=== PATIENT | female | born 1950 | race Caucasian/White ===

== ENCOUNTER 2020-02-03 08:58 | Outpatient (CLI) | payer MEDICARE, SELFPAY ==
--- NOTE | ~2020-02-03 | US_ITS ---
EXAMINATION: US pelvic complete DATE: 02/03/2020 09:33 INDICATION: Pelvic pain and pressure TECHNIQUE: Multiple transabdominal sonographic images of the pelvis were obtained. COMPARISON: None. FINDINGS: The uterus measures 7.2 x 5.8 x 4.3 cm. A 2.4 x 2.4 cm isoechoic area in the anterior uteri ne body has the appearance of a subserosal fibroid. The endometrial complex measures 2 mm. The right ovary is not visualized however no right adnexal abnormality is seen. The left ovary measures 2.5 x 2 .3 x 1.7 cm. There is a 1.4 cm cyst of the left ovary. There is normal vascular flow in the left ovar y. There is no free fluid in the pelvis. IMPRESSION: 1. No sonographic correlate for the patient's symptoms. 2. 1.4 cm cyst of the left ovary. Ultrasound follow-up in one year is recommended for a postmenopausa l patient. Reviewed, dictated and finalized at location A. IMPRESSION: 1. No sonographic correlate for the patient's symptoms. 2. 1.4 cm cyst of the left ovary. Ultrasound follow-up in one year is recommend ed for a postmenopausal patient.
== END 2020-02-03 08:59 | disposition home or self-care (01) ==
PROVIDERS: PCP Internal Medicine; Visit Provider Internal Medicine
DX: R10.2 Pelvic and perineal pain (principal)
CPT/HCPCS: 76856

== ENCOUNTER 2020-08-16 12:55 | Outpatient (RCR) | payer MEDICARE, SELFPAY ==
--- NOTE | 2020-08-16 14:02 | PTOPEVAL ---
Thank you for referring Minna Jarquin to [facility].? The patient is scheduled to be seen for therapy? ____x/week for ___ weeks. Please review, sign, date and return this plan of care NAKITA. I agree with and certify that the following plan of care is medically necessary. Referring Physician Date Admitting Provider: Attending Provider: Hamilton Nascimento MD Referring Provider: *PT Outpatient Evaluation Start: 08/16/20 13:02 Freq: Status: Active Protocol: Document 08/16/20 13:00 [facility] (Rec: 08/16/20 14:01 [facility] [id number]) Therapy Assessment Status Assessment Status Assessment Status Evaluation Evaluation Information Problem Diagnosis R shoulder pain Additional Evaluation Detail quick dash = 56% Subjective Information patient reports she has been Query Text:As Reported By Patient/ having pain in the R shoulder Family for about 6 months. she reports she was hopeful the pain would go away. 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 she reports she felt a pop in the shoulder while using the mower . she reports she has increased pain with cleaning her home, lifting, and reaching behind her head. she reports she had an injection on 08/05/20. she reports she is feeling better since her injection. Prior Level of Function Comments Additional Prior Level of Function prior to January of this year, Comments she reports she had some issues with the R Ue and had to watch what she did. she reports washing windows and other heavy home activities would aggravate her symptoms. Pain Assessment Timing of Pain Assessment Timing of Pain Assessment Assessment Pain Scale Pain Scale Used Numeric (1 - 10) Self Report Pain Assessment Right Shoulder(s) Reported Pain Level 2 Greatest Pain Intensity 4 Pain Score Pain Score 2: Self Report Interventions Used Interventions Used By Clinicians Activity or ADL's,Education, Electrical Stimulation, Exercise,Heat Upper Extremity Range of Motion Scapular/ Shoulder Range of Motion Right Shoulder Flexion - Active 130 Shoulder Flexion - Passive
--- NOTE | 2020-09-14 16:02 | PCPTNOTE ---
09/14/20 - patient has called in this date and reports she is feeling good. she reports she is not going to continue therapy as of this time. she will be dc'd from skilled PT this date, and all progress towards goals will be taken from her most recent evaluation/note. TEMITOPE
== END 2020-09-10 18:00 | disposition home or self-care (01) ==
LOC: CHSPT 12:55
PROVIDERS: PCP Internal Medicine; Visit Provider Internal Medicine Infectious Disease
DX: M25.811 Other specified joint disorders, right shoulder (principal)
CPT/HCPCS: 97014; 97110; 97161; G0283

== ENCOUNTER 2020-12-22 17:19 | Outpatient (CLI) | payer MEDICARE, SELFPAY ==
--- NOTE | ~2020-12-22 | MR_ITS ---
EXAMINATION: MR brain/brain stem wo con DATE: 12/22/2020 20:07 INDICATION: Headache. TECHNIQUE: Magnetic resonance imaging (MRI) of the brain and brainstem was performed without intraven ous contrast. Sequences included sagittal and axial T1-weighted FSE, axial diffusion-weighted FS EPI, axial T2*-weighted GRE, axial T2-weighted FLAIR Propeller, and axial T2-weighted Propeller. Apparent diffusion coefficient (ADC) maps were created. COMPARISON: None. FINDINGS: There is a 2.3 x 1.9 cm extra-axial mass overlying right frontal lobe that demonstrates inc reased T2-weighted signal intensity and decreased T1-weighted signal intensity relative to shirley matte r. There is no acute ischemic infarct or intracranial hemorrhage. There are scattered areas of nonspe cific increased T2-weighted signal intensity in the cerebral white matter. The ventricles are normal in size. There is mild mucosal thickening in the paranasal sinuses. There are likely changes of ocula r lens replacement surgeries. The mastoid air cells are normal. IMPRESSION: 1. 2.3 cm extra-axial mass overlying right frontal lobe, consistent with a meningioma. 2. Mild nonspecific cerebral white matter disease, which likely represents chronic small vessel ische nay disease. Reviewed, dictated and finalized at location A. IMPRESSION: 1. 2.3 cm extra-axial mass overlying right frontal lobe, consistent with a meni ngioma. 2. Mild nonspecific cerebral white matter disease, which likely represents combine driver jd small vessel ischemic disease.
== END 2020-12-22 17:20 | disposition home or self-care (01) ==
LOC: CHSIMG 17:21
PROVIDERS: PCP Internal Medicine; Visit Provider Internal Medicine
DX: R51.9 Headache, unspecified (principal); R93.89 Abnormal findings on diagnostic imaging of other specified body structures
CPT/HCPCS: 70551

== ENCOUNTER 2021-09-06 16:04 | Outpatient (CLI) | payer MEDICARE, SELFPAY ==
[2021-09-06 17:54] LABS: Influenza Control Valid (Valid)
[2021-09-06 17:55] LABS: SARS-CoV-2 Ag Positive (Negative)
== END 2021-09-06 16:05 | disposition home or self-care (01) ==
LOC: CHSLAB 16:11
PROVIDERS: PCP Internal Medicine; Visit Provider Internal Medicine
DX: U07.1 COVID-19 (principal); J06.9 Acute upper respiratory infection, unspecified
CPT/HCPCS: 87081; 87426; 87804; 87880; C9803

== ENCOUNTER 2022-03-09 12:09 | Outpatient (CLI) | payer MEDICARE, SELFPAY ==
--- NOTE | ~2022-03-09 | CT_ITS ---
EXAMINATION: CT abdomen pelvis w con DATE: 03/09/2022 13:31 INDICATION: Chronic diarrhea. Bloating. TECHNIQUE: Computed tomography (CT) of the abdomen and pelvis was performed with 100 mL Omnipaque 350 intravenous contrast. Automated exposure control and iterative reconstruction technique were employe d. The dose-length product was 748.37 mGy-cm. COMPARISON: CT abdomen and pelvis 03/06/2015 FINDINGS: The visualized portions of the lung bases demonstrate mild atelectasis. No pleural effusion . The heart size is normal. There are coronary artery calcifications. No pericardial effusion. The li jessy and spleen are normal. There are changes of cholecystectomy. There is an 11 mm cystic lesion in t he uncinate process of the pancreas. The adrenal glands and kidneys are normal. There are calcified f ibroids in the uterus. There are no dilated loops of bowel. The appendix is normal. There are no path ologically enlarged lymph nodes. There is no free intraperitoneal fluid. There is severe lumbar spond ylosis. There is a chronic burst fracture of L1. IMPRESSION: 1. 11 mm cystic lesion in the pancreas. The differential diagnosis includes pseudocyst, intraductal p apillary mucinous neoplasm (IPMN), mucinous cystic neoplasm (MCN), serous cystadenoma, and neuroendoc rine tumor. Abdomen MRI without and with contrast is recommended in 2 years. Reviewed, dictated and finalized at location A. IMPRESSION: 1. 11 mm cystic lesion in the pancreas. The differential diagnosis includes pse udocyst, intraductal papillary mucinous neoplasm (IPMN), mucinous cystic neopla sm (MCN), serous cystadenoma, and neuroendocrine tumor. Abdomen MRI without and with contrast is recommended in 2 years.
[2022-03-09 12:37] LABS: Estimated Glomerular Filt Rate 55
== END 2022-03-09 12:10 | disposition home or self-care (01) ==
PROVIDERS: PCP Internal Medicine; Visit Provider Internal Medicine
DX: R19.7 Diarrhea, unspecified (principal)
CPT/HCPCS: 74177; Q9967

== ENCOUNTER 2022-10-02 13:14 | Outpatient (RCR) | payer MEDICARE, SELFPAY | END 2022-10-02 15:55 | disposition home or self-care (01) | LOC: CHSPT 13:14 | PROVIDERS: Visit Provider Orthopaedic Surgery | DX: M16.11 Unilateral primary osteoarthritis, right hip (principal) | CPT/HCPCS: 97110; 97161 ==

== ENCOUNTER 2022-11-10 11:52 | Outpatient (CLI) | payer MEDICARE, SELFPAY ==
[2022-11-10 12:21] LABS: Anion Gap 8 mmol/L (8-16); Blood Urea Nitrogen 12 mg/dL (7-18); Calcium 9.1 mg/dL (8.5-10.1); Carbon Dioxide 31 mmol/L (21-32); Chloride 97 mmol/L (98-108); Estimated Glomerular Filt Rate > 60; Glucose 217 mg/dL (70-99); Osmolality Calculated 288 mOsm/kg (285-295); Potassium 4.3 mmol/L (3.5-5.1); Sodium 136 mmol/L (136-145)
== END 2022-11-10 11:53 | disposition home or self-care (01) ==
LOC: CHSLAB 11:54
PROVIDERS: PCP Internal Medicine; Visit Provider Internal Medicine
DX: E87.0 Hyperosmolality and hypernatremia (principal)
CPT/HCPCS: 36415; 80048

== ENCOUNTER 2023-01-09 10:03 | Outpatient (CLI) | payer MEDICARE, SELFPAY ==
--- NOTE | ~2023-01-09 | XR_ITS ---
EXAMINATION: XR chest 2V 01/09/2023 10:36 INDICATION: Cough. Nausea. Shortness of breath. PROCEDURE: 2 view chest COMPARISON: 04/04/2017 FINDINGS: The lungs are clear. The cardiomediastinal silhouette is within normal limits. There are no pleural effusions. There is no pneumothorax suspected. IMPRESSION: 1: NO ACUTE CARDIOPULMONARY DISEASE. Reviewed, dictated and finalized at location L.
[2023-01-09 10:17] LABS: Basophils Absolute Auto 0.04 K/mm3 (0.00-0.10); Basophils Percent Auto 0.6 % (0.0-1.0); Eosinophils Absolute Auto 0.08 K/mm3 (0.02-0.50); Eosinophils Percent Auto 1.2 % (1.0-6.0); Hematocrit 36.2 % (35.0-42.0); Hemoglobin 12.3 g/dL (11.7-13.8); Immature Granulocyte Absolute 0.02 K/mm3 (0.00-0.00); Immature Granulocyte Percent A 0.3 % (0.0-0.0); Lymphocytes Absolute Auto 1.78 K/mm3 (1.10-4.50); Lymphocytes Percent Auto 27.6 % (18.0-42.0); Mean Corpuscular Hemoglobin 28.1 pg (27.0-31.0); Mean Corpuscular Volume 82.6 fL (78.0-102.0); Mean Platelet Volume 9.2 fl (9.2-11.8); Monocytes Absolute Auto 0.49 K/mm3 (0.10-0.90); Monocytes Percent Auto 7.6 % (2.0-11.0); Neutrophils Absolute Auto 4.1 K/mm3 (1.7-7.2); Neutrophils Percent Auto 62.7 % (50.0-70.0); Platelet Count Result 360 K/mm3 (150-420); Red Blood Count 4.38 M/mm3 (4.20-5.40); Red Cell Distribution Width 12.1 % (11.6-14.4); White Blood Count 6.5 K/mm3 (4.8-10.8)
[2023-01-09 10:22] LABS: Appearance Urine Clear (Clear); Bilirubin Urine Negative (Negative); Blood Urine 2+ (Negative); Color Urine Yellow (Yellow); Glucose Urine UA 2+ (Negative); Ketones Urine 2+ (Negative); Leukocyte Esterase Ur Negative (Negative); Nitrate Urine Negative (Negative); Protein Urine 2+ (Negative)
[2023-01-09 10:27] LABS: Add Urine Microscopic? YES; Bacteria Urine Trace /hpf; Squamous Epithelial Cell Urine Occasional /hpf (Few); WBC Urine 0-3 /hpf (0-3)
[2023-01-09 11:48] LABS: Alanine Aminotransferase 27 U/L (14-59); Albumin Level 4.5 g/dL (3.4-5.0); Alkaline Phosphatase 72 U/L (46-116); Amylase 28 U/L (25-115); Anion Gap 8 mmol/L (8-16); Aspartate Amino Transferase 18 U/L (15-37); Blood Urea Nitrogen 11 mg/dL (7-18); Calcium 9.4 mg/dL (8.5-10.1); Carbon Dioxide 29 mmol/L (21-32); Chloride 86 mmol/L (98-108); Estimated Glomerular Filt Rate > 60; Glucose 212 mg/dL (70-99); Lipase 13 U/L (16-77); Osmolality Calculated 261 mOsm/kg (285-295); Potassium 4.3 mmol/L (3.5-5.1); Sodium 123 mmol/L (136-145); Total Protein 7.5 g/dL (6.4-8.2)
== END 2023-01-09 10:04 | disposition home or self-care (01) ==
LOC: CHSLAB 10:07
PROVIDERS: PCP Internal Medicine; Visit Provider Internal Medicine
DX: R11.0 Nausea (principal); R05.9 Cough, unspecified; R10.9 Unspecified abdominal pain
CPT/HCPCS: 36415; 71046; 80053; 81001; 82150; 83690; 85025; 87086

== ENCOUNTER 2023-01-09 14:45 | Emergency (ER) | payer MEDICARE, SELFPAY ==
[2023-01-09 14:45] VITALS: BP 149/71; PULSE 84; RESP 18; TEMP 36.6; O2SAT 96
--- NOTE | 2023-01-09 14:45 | PC.NURSE ---
UPON ASSESSMENT, PT REPORTS LOWER BACK AND ABD PAIN ASSOCIATED WITH N-V-D X3 DAYS. ERP IS AWARE.
--- NOTE | 2023-01-09 14:52 | ED.RECABL ---
HPI - Recheck/Abnormal Lab/Rx General Chief Complaint: Recheck/Abnormal Lab/Rx Stated Complaint: abnormal labs Time Seen by Provider: 01/09/23 14:52 Source: patient and RN notes reviewed Mode of arrival: ambulatory Limitations: no limitations History of Present Illness HPI narrative: patient here because her sodium is 123. Her primary care doctor had done some blood work today and found the low-sodium sent her here for some IV fluids. She had a couple episodes of vomiting the last couple days and she has no appetite. Also had 1 episode of diarrhea. She went to her primary care physician and they sent her over for labs and then sent her here for fluids complaint: abnormal lab Initial visit (ago): hour(s) (3) Initial visit for: other Returns today for: other ( IV fluids) Description of abnormal result: sodium of 123 Symptoms since prior visit: no new symptoms Context: called for abnormal lab result Associated symptoms: nausea Related Data Home Medications Medication Instructions Recorded Confirmed acetaminophen 500 mg tablet 500 mg PO Q6H PRN Pain (Scale 08/24/22 01/09/23 Score 1-3) carvedilol 12.5 mg tablet 12.5 mg PO Q12H 08/24/22 01/09/23 cetirizine 10 mg tablet 10 mg PO DAILY PRN Allergy Symptoms 08/24/22 01/09/23 cholecalciferol (vitamin D3) 25 25 mcg PO DAILY 08/24/22 01/09/23 mcg (1,000 unit) capsule citalopram 20 mg tablet 20 mg PO DAILY 08/24/22 01/09/23 insulin aspart U-100 100 unit/mL 5 unit subcut TID 08/24/22 01/09/23 (3 mL) subcutaneous pen (Novolog FlexPen U-100 Insulin aspart) lorazepam 1 mg tablet 1 mg PO HS PRN Anxiety 08/24/22 01/09/23 losartan 50 mg-hydrochlorothiazide 2 tablet PO DAILY 08/24/22 01/09/23 12.5 mg tablet lovastatin 40 mg tablet 40 mg PO QPM 08/24/22 01/09/23 mecobalamin (vitamin B12) 1,000 1,000 mcg PO DAILY 08/24/22 01/09/23 mcg chewable tablet (B12 Active) omeprazole 20 mg capsule,delayed 20 mg PO DAILY 08/24/22 01/09/23 release potassium chloride 10 mEq 20 meq PO BID 08/24/22 01/09/23 capsule,extended release spironolactone 50 mg tablet 25 mg PO DAILY 08/24/22 01/09/23 Allergies Allergy/AdvReac Type Severity Reaction Status Date / Time acetaminophen [From Vicodin] Allergy Nausea Verified 01/09/23 14:57 hydrocodone [From Vicodin] Allergy Nausea Verified 01/09/23 14:57 Sulfa (Sulfonamide Allergy Hives Verified 01/09/23 14:56 Antibiotics) semaglutide AdvReac Abdominal Verified 01/09/23 14:56 Pain Review of Systems Review of Systems: All systems reviewed & are unremarkable except as noted in HPI and below Constitutional: Constitutional: Denies chills and Denies fever(s) Respiratory: Respiratory: Reports chest congestion and Reports cough Gastrointestinal: Gastrointestinal: Reports as per HPI Musculoskeletal: Musculoskeletal: Denies myalgias PMFSH Past Medical History Medical History Lumbar spondylosis Right hip pain Type 2 diabetes mellitus with hyperglycemia Surgical History Surgical History History of brain surgery (04/29/21) History of lumbar laminectomy (~1973) History of lumpectomy of right breast (10/16/01) Social History Social History Smoking status: Never smoker Exam Const: General: healthy appearing, no acute distress and alert Nutritional Appearance: well nourished Orientation/consciousness: patient oriented x3 Limitations: no limitations HENMT: Head: normal to inspection Ears: external ears normal Face/Nose/Sinus: Normal external nose present Face and sinus: normal facial exam Mouth: Yes moist mucous membranes Eyes: Conjunctivae: conjunctivae normal Pupils: Equal, round and reactive pupils present EOM: EOMs intact bilaterally Neck: Neck: normal visual inspection Resp: Effort & Inspection: normal respiratory effort Auscultation: clear to aus
[2023-01-09 15:00] VITALS: BP 148/60; PULSE 86; RESP 18; O2SAT 98
[2023-01-09] MEDS: SODIUM CHLORIDE 0.9% IV 1,000 ML 999 ML IV CONT (15:05)
[2023-01-09 16:00] VITALS: BP 154/75; PULSE 77; RESP 18; O2SAT 98
--- NOTE | 2023-01-09 16:08 | PC.NURSE ---
PT IS TALKING WITH WITHOUT DISTRESS. PT VERBALIZED UNDERSTANDING OF DC AND FOLLOW UP INSTRUCTIONS.
== END 2023-01-09 16:00 | disposition home or self-care (01) ==
LOC: CHSED 15:31
PROVIDERS: Emergency Provider Emergency Medicine; PCP Internal Medicine
DX: E87.1 Hypo-osmolality and hyponatremia (principal); Z79.4 Long term (current) use of insulin; E11.9 Type 2 diabetes mellitus without complications
CPT/HCPCS: 36415; 71046; 80053; 81001; 82150; 83690; 85025; 87086; 96360; 99283; J7030

== ENCOUNTER 2023-01-10 14:17 | Outpatient (CLI) | payer MEDICARE, SELFPAY ==
--- NOTE | ~2023-01-10 | CT_ITS ---
EXAMINATION: CT abdomen pelvis w con DATE: 01/10/2023 16:51 INDICATION: 4-5 days of umbilical abdominal pain with posterior radiation. Vomiting. TECHNIQUE: Computed tomography (CT) of the abdomen and pelvis was performed with 100 mL Omnipaque-350 intravenous contrast. Automated exposure control and iterative reconstruction technique were employe d. The dose-length product was 746.06 mGy-cm. COMPARISON: None FINDINGS: Mild elevation of left hemidiaphragm. Minimal dependent atelectasis in the bilateral lower lobes. Hea rt size is normal. No pericardial or pleural effusion. Cholecystectomy clips the gallbladder fossa. M ultiple splenic calcific lesions consistent with old granulomatous disease. Unchanged 11 mm cystic le vishal at the uncinate process of the pancreas. Bilateral adrenal glands and kidneys are normal. Fluid and large amount of gas in the ascending and transverse colon. The more distal colon is relatively de compressed no dilated bowel to suggest obstruction. Bladder is normal. Calcified uterine fibroids. Bi lateral adnexa are unremarkable. No free intraperitoneal gas or fluid. No pathologically enlarged abd ominal or pelvic lymphadenopathy. There is calcified atherosclerosis of the aorta and many of the [facility] arteries. Chronic L1 burst fracture. Severe lumbar spondylosis. IMPRESSION: 1. Fluid along with moderate amount of gas in the proximal colon consistent with nonspecific diarrhea . No other acute intra-abdominal/pelvic process. 2. Unchanged 11 mm cystic lesion in the pancreas with differential as previously detailed for which a bdominal MRI with and without contrast would be recommended in 2 years. Reviewed, dictated and finalized at location A. IMPRESSION: 1. Fluid along with moderate amount of gas in the proximal colon consistent wit h nonspecific diarrhea. No other acute intra-abdominal/pelvic process. 2. Unchanged 11 mm cystic lesion in the pancreas with differential as previousl y detailed for which abdominal MRI with and without contrast would be recommend ed in 2 years.
[2023-01-10 15:25] LABS: Anion Gap 7 mmol/L (8-16); Blood Urea Nitrogen 15 mg/dL (7-18); Calcium 9.1 mg/dL (8.5-10.1); Carbon Dioxide 28 mmol/L (21-32); Chloride 88 mmol/L (98-108); Estimated Glomerular Filt Rate > 60; Glucose 160 mg/dL (70-99); Osmolality Calculated 259 mOsm/kg (285-295); Sodium 123 mmol/L (136-145)
== END 2023-01-10 14:18 | disposition home or self-care (01) ==
PROVIDERS: PCP Internal Medicine; Visit Provider Internal Medicine
DX: E87.1 Hypo-osmolality and hyponatremia (principal); R11.2 Nausea with vomiting, unspecified; R10.9 Unspecified abdominal pain; K86.2 Cyst of pancreas
CPT/HCPCS: 36415; 74177; 80048; Q9967

== ENCOUNTER 2023-01-10 22:36 | Emergency (ER) | payer MEDICARE, SELFPAY ==
--- NOTE | 2023-01-10 22:45 | ED.ABDPAIN ---
HPI - Abdominal Pain General Chief Complaint: Abdominal Pain Stated Complaint: low sodium Time Seen by Provider: 01/10/23 22:38 Source: patient and family Mode of arrival: ambulatory Limitations: no limitations History of Present Illness HPI narrative: 72-year-old female with a history of hypertension, diabetes mellitus, dyslipidemia, status post laminectomy, status post brain surgery, 11 mm pancreatic cyst in the uncinate process, abdominal pain, chronic diarrhea, hyponatremia presented to the ER yesterday for for hyponatremia for which the patient received 1 L of normal saline and was discharged home. The patient had a repeat sodium today which was noted to be 123. The patient had a CT of the abdomen and pelvis for her abdominal pain which revealed air and fluid in the proximal colon suggestive of nonspecific diarrhea along with persistent pancreatic cyst measuring 11 mm. The patient had a colonoscopy which revealed a colonic polyp which was removed. The patient presents to the ER for -- hyponatremia with a serum sodium of 123. The patient has a history of excessive water drinking. She was advised to drink Gatorade. -- Nausea and vomiting. She had 2 episodes of vomiting before coming here. -- Ongoing abdominal pain which is diffuse without any exacerbating or relieving factors. MD elicited complaint: abdominal pain Onset (ago): day(s) Pain Consistency: constant Location: diffuse Severity: mild Radiation: none Migration to: no migration Exacerbating factors: nothing Relieving factors: nothing Associated symptoms: denies other symptoms Related Data Home Medications Medication Instructions Recorded Confirmed acetaminophen 500 mg tablet 500 mg PO Q6H PRN Pain (Scale 08/24/22 01/10/23 Score 1-3) carvedilol 12.5 mg tablet 12.5 mg PO Q12H 08/24/22 01/10/23 cetirizine 10 mg tablet 10 mg PO DAILY PRN Allergy Symptoms 08/24/22 01/10/23 cholecalciferol (vitamin D3) 25 25 mcg PO DAILY 08/24/22 01/10/23 mcg (1,000 unit) capsule citalopram 20 mg tablet 20 mg PO DAILY 08/24/22 01/10/23 insulin aspart U-100 100 unit/mL 5 unit subcut TID 08/24/22 01/10/23 (3 mL) subcutaneous pen (Novolog FlexPen U-100 Insulin aspart) lorazepam 1 mg tablet 1 mg PO HS PRN Anxiety 08/24/22 01/10/23 lovastatin 40 mg tablet 40 mg PO QPM 08/24/22 01/10/23 mecobalamin (vitamin B12) 1,000 1,000 mcg PO DAILY 08/24/22 01/10/23 mcg chewable tablet (B12 Active) omeprazole 20 mg capsule,delayed 20 mg PO DAILY 08/24/22 01/10/23 release potassium chloride 10 mEq 20 meq PO DAILY 08/24/22 01/10/23 capsule,extended release Allergies Allergy/AdvReac Type Severity Reaction Status Date / Time acetaminophen [From Vicodin] Allergy Nausea Verified 01/10/23 22:46 hydrocodone [From Vicodin] Allergy Nausea Verified 01/10/23 22:46 Sulfa (Sulfonamide Allergy Hives Verified 01/10/23 22:46 Antibiotics) semaglutide AdvReac Abdominal Verified 01/10/23 22:46 Pain Review of Systems Review of Systems: All systems reviewed & are unremarkable except as noted in HPI and below Constitutional: Constitutional: Reports as per HPI and Reports no additional constitutional complaints Eyes: Eyes: Reports as per HPI and Reports no additional eye complaints ENT: Reports system reviewed and no additional complaints, except as documented and Reports as per HPI Cardiovascular: Cardiovascular: Reports as per HPI and Reports no additional cardiovascular complaints Respiratory: Respiratory: Reports as per HPI and Reports no additional respiratory complaints Gastrointestinal: Gastrointestinal: Reports as per HPI, Reports no additional gastrointestinal complaints, Reports nausea and Reports vomiting Genitourinary: Genitourinary: Reports no additional female genitourinary complaints Musculoskeletal: Musculoskeletal: Reports no additional musculoskeletal complaints Integumentary/Breasts: Skin/Breast: Reports system reviewed and no additional complaints, except as
[2023-01-10 22:46] VITALS: BP 164/70; PULSE 87; RESP 18; TEMP 36.7; O2SAT 96
[2023-01-10 23:44] VITALS: BP 145/56; PULSE 76; RESP 18; O2SAT 95
== END 2023-01-10 23:45 | disposition home or self-care (01) ==
LOC: CHSED 23:31
PROVIDERS: Emergency Provider Internal Medicine Critical Care Medicine; PCP Internal Medicine
DX: E87.1 Hypo-osmolality and hyponatremia (principal); R10.84 Generalized abdominal pain; I10 Essential (primary) hypertension; E11.9 Type 2 diabetes mellitus without complications; E78.5 Hyperlipidemia, unspecified; R19.7 Diarrhea, unspecified; M47.816 Spondylosis without myelopathy or radiculopathy, lumbar region; Z79.4 Long term (current) use of insulin
CPT/HCPCS: 36415; 74177; 80048; 99281; Q9967

== ENCOUNTER 2023-01-12 09:37 | Outpatient (CLI) | payer MEDICARE, SELFPAY ==
[2023-01-12 12:24] LABS: Anion Gap 7 mmol/L (8-16); Blood Urea Nitrogen 17 mg/dL (7-18); Calcium 8.7 mg/dL (8.5-10.1); Carbon Dioxide 28 mmol/L (21-32); Chloride 95 mmol/L (98-108); Estimated Glomerular Filt Rate > 60; Glucose 204 mg/dL (70-99); Osmolality Calculated 277 mOsm/kg (285-295); Potassium 4.5 mmol/L (3.5-5.1); Sodium 130 mmol/L (136-145)
== END 2023-01-12 09:38 | disposition home or self-care (01) ==
LOC: CHSLAB 09:40
PROVIDERS: PCP Internal Medicine; Visit Provider Internal Medicine
DX: E87.1 Hypo-osmolality and hyponatremia (principal)
CPT/HCPCS: 36415; 80048

== ENCOUNTER 2023-01-16 11:02 | Outpatient (CLI) | payer MEDICARE, SELFPAY ==
[2023-01-16 11:49] LABS: Anion Gap 5 mmol/L (8-16); Blood Urea Nitrogen 14 mg/dL (7-18); Calcium 9.1 mg/dL (8.5-10.1); Carbon Dioxide 32 mmol/L (21-32); Chloride 96 mmol/L (98-108); Estimated Glomerular Filt Rate > 60; Glucose 73 mg/dL (70-99); Osmolality Calculated 275 mOsm/kg (285-295); Potassium 4.6 mmol/L (3.5-5.1); Sodium 133 mmol/L (136-145)
== END 2023-01-16 11:03 | disposition home or self-care (01) ==
LOC: CHSLAB 11:04
PROVIDERS: PCP Internal Medicine; Visit Provider Internal Medicine
DX: E87.1 Hypo-osmolality and hyponatremia (principal)
CPT/HCPCS: 36415; 80048

== ENCOUNTER 2023-01-23 13:18 | Outpatient (CLI) | payer MEDICARE, SELFPAY ==
[2023-01-23 13:57] LABS: Anion Gap 5 mmol/L (8-16); Blood Urea Nitrogen 15 mg/dL (7-18); Calcium 8.7 mg/dL (8.5-10.1); Carbon Dioxide 32 mmol/L (21-32); Chloride 102 mmol/L (98-108); Estimated Glomerular Filt Rate > 60; Glucose 94 mg/dL (70-99); Osmolality Calculated 288 mOsm/kg (285-295); Potassium 4.3 mmol/L (3.5-5.1); Sodium 139 mmol/L (136-145)
== END 2023-01-23 13:19 | disposition home or self-care (01) ==
LOC: CHSLAB 13:20
PROVIDERS: PCP Internal Medicine; Visit Provider Internal Medicine
DX: E87.1 Hypo-osmolality and hyponatremia (principal)
CPT/HCPCS: 36415; 80048

== ENCOUNTER 2023-04-02 10:53 | Outpatient (CLI) | payer MEDICARE, SELFPAY ==
--- NOTE | ~2023-04-02 | XR_ITS ---
EXAMINATION: XR hip LT min 2V DATE: 04/02/2023 11:37 INDICATION: Left hip pain. TECHNIQUE: 2 views of left hip were obtained. COMPARISON: None. FINDINGS: Bone alignment is normal. No fracture. Mild left hip osteoarthritis. A surgical clip overli es the pelvis. IMPRESSION: 1. Mild left hip osteoarthritis. Reviewed, dictated and finalized at location A.
[2023-04-02 11:29] LABS: Basophils Absolute Auto 0.05 K/mm3 (0.00-0.10); Basophils Percent Auto 0.6 % (0.0-1.0); Eosinophils Absolute Auto 0.23 K/mm3 (0.02-0.50); Eosinophils Percent Auto 2.9 % (1.0-6.0); Hemoglobin 12.8 g/dL (11.7-13.8); Immature Granulocyte Absolute 0.02 K/mm3 (0.00-0.00); Immature Granulocyte Percent A 0.2 % (0.0-0.0); Lymphocytes Absolute Auto 1.56 K/mm3 (1.10-4.50); Lymphocytes Percent Auto 19.3 % (18.0-42.0); Mean Corpuscular HGB Conc 34.6 g/dL (32.0-36.0); Mean Corpuscular Hemoglobin 28.9 pg (27.0-31.0); Mean Corpuscular Volume 83.5 fL (78.0-102.0); Mean Platelet Volume 9.9 fl (9.2-11.8); Monocytes Absolute Auto 0.85 K/mm3 (0.10-0.90); Monocytes Percent Auto 10.5 % (2.0-11.0); Neutrophils Absolute Auto 5.4 K/mm3 (1.7-7.2); Neutrophils Percent Auto 66.5 % (50.0-70.0); Platelet Count Result 358 K/mm3 (150-420); Red Blood Count 4.43 M/mm3 (4.20-5.40); Red Cell Distribution Width 12.9 % (11.6-14.4); White Blood Count 8.1 K/mm3 (4.8-10.8)
[2023-04-02 11:30] LABS: Appearance Urine Clear (Clear); Bilirubin Urine Negative (Negative); Blood Urine 2+ (Negative); Color Urine Light Yellow (Yellow); Glucose Urine UA Negative (Negative); Ketones Urine Trace (Negative); Leukocyte Esterase Ur Negative LEU/UL (Negative); Nitrate Urine Negative (Negative); Protein Urine Trace (Negative); Urobilinogen Urine 0.2 mg/dL (0.2-1.0); pH Urine 6.5 (5.0-8.0)
[2023-04-02 11:39] LABS: Add Urine Microscopic? YES
[2023-04-02 11:44] LABS: Squamous Epithelial Cell Urine Rare /hpf (Few); WBC Urine None seen /hpf (0-3)
[2023-04-02 11:45] LABS: Bacteria Urine Trace /hpf
[2023-04-02 12:15] LABS: Alanine Aminotransferase 27 U/L (14-59); Albumin Level 4.4 g/dL (3.4-5.0); Alkaline Phosphatase 71 U/L (46-116); Anion Gap 8 mmol/L (8-16); Aspartate Amino Transferase 23 U/L (15-37); Bilirubin,Total 1.7 mg/dL (0.00-1.00); Blood Urea Nitrogen 11 mg/dL (7-18); Carbon Dioxide 29 mmol/L (21-32); Chloride 87 mmol/L (98-108); Estimated Glomerular Filt Rate > 60; Glucose 167 mg/dL (70-99); Osmolality Calculated 261 mOsm/kg (285-295); Potassium 3.7 mmol/L (3.5-5.1); Sodium 124 mmol/L (136-145); Total Protein 7.8 g/dL (6.4-8.2)
== END 2023-04-02 10:54 | disposition home or self-care (01) ==
LOC: CHSLAB 10:55
PROVIDERS: PCP Internal Medicine; Visit Provider Internal Medicine
DX: M54.50 Low back pain, unspecified (principal); R10.32 Left lower quadrant pain; M16.12 Unilateral primary osteoarthritis, left hip
CPT/HCPCS: 36415; 73502; 80053; 81001; 85025

== ENCOUNTER 2023-04-03 08:31 | Outpatient (CLI) | payer MEDICARE, SELFPAY ==
--- NOTE | ~2023-04-03 | CT_ITS ---
EXAMINATION: CT abdomen pelvis wo con DATE: 04/03/2023 09:04 INDICATION: Left lower quadrant abdominal pain. Left groin pain. Hematuria. TECHNIQUE: Computed tomography (CT) of the abdomen and pelvis was performed without intravenous contr ast. Automated exposure control and iterative reconstruction technique were employed. The dose-length product was 391.62 mGy-cm. COMPARISON: CT abdomen and pelvis 01/10/2023 FINDINGS: The visualized portions of the lung bases are clear without pneumonia or pleural effusion. The heart size is normal. No pericardial effusion. Calcifications in the liver and spleen are consist ent with old granulomatous disease. There are changes of cholecystectomy. The pancreas, adrenal gland s, and kidneys are normal. There is no urolithiasis. There is calcified atherosclerosis of the aorta and many of the other arteries. There are no dilated loops of bowel. The appendix is not visualized. There are no pathologically enlarged lymph nodes. There is no free intraperitoneal fluid. There is a total right hip arthroplasty. There is moderate left hip osteoarthritis. There is severe lumbar spond ylosis. There is a chronic burst fracture of L1. IMPRESSION: 1. No urolithiasis. Reviewed, dictated and finalized at location A. IMPRESSION: 1. No urolithiasis.
== END 2023-04-03 08:32 | disposition home or self-care (01) ==
LOC: CHSIMG 08:33
PROVIDERS: PCP Internal Medicine; Visit Provider Internal Medicine
DX: R31.9 Hematuria, unspecified (principal); R10.9 Unspecified abdominal pain
CPT/HCPCS: 74176

== ENCOUNTER 2023-04-05 09:58 | Outpatient (CLI) | payer MEDICARE, SELFPAY ==
--- NOTE | ~2023-04-05 | MR_ITS ---
EXAMINATION: MR lumbar spine wo con DATE: 04/05/2023 11:05 INDICATION: Low back pain. Fall. TECHNIQUE: Magnetic resonance imaging (MRI) of the lumbar spine was performed without intravenous con trast. Sequences included sagittal T2-weighted FSE, sagittal T2-weighted FS FSE, sagittal T1-weighted FSE, and axial T2-weighted FSE. COMPARISON: CT abdomen and pelvis 04/03/2023 FINDINGS: Bone alignment is normal. There is a chronic burst fracture of superior endplate of L1 with 3/5 loss of height and retropulsion of bone 3 mm into central spinal canal. There is mildly decrease d disc height at L1-L2 and L2-L3, severely decreased disc height at L3-L4 and L4-L5, and moderately d ecreased disc height at L5-S1 with endplate remodeling. The distal spinal cord signal intensity is no rmal. The conus medullaris is at T12. The following disc levels are specifically discussed: L1-L2: The disc is bulging. There is severe bilateral facet joint osteoarthritis. There is mild bilat eral neural foraminal stenosis. There is mild central canal stenosis. L2-L3: The disc is bulging. There is severe bilateral facet joint osteoarthritis. There is mild bilat eral neural foraminal stenosis. There is mild central canal stenosis. L3-L4: The disc is bulging and has an annular fissure. There is moderate bilateral facet joint osteoa rthritis. There is mild bilateral neural foraminal stenosis. There is mild central canal stenosis. L4-L5: The disc is bulging and has an annular fissure. There is moderate right and mild left facet mae int osteoarthritis. There is mild bilateral neural foraminal stenosis. There is mild central canal st enosis. L5-S1: The disc is bulging. There is severe bilateral facet joint osteoarthritis. There is moderate b ilateral neural foraminal stenosis. There is mild central canal stenosis. IMPRESSION: 1. Severe lumbar spondylosis. Reviewed, dictated and finalized at location A.
== END 2023-04-05 09:59 | disposition home or self-care (01) ==
LOC: CHSIMG 10:00
PROVIDERS: PCP Internal Medicine; Visit Provider Internal Medicine
DX: M54.16 Radiculopathy, lumbar region (principal); M43.06 Spondylolysis, lumbar region
CPT/HCPCS: 72148

== ENCOUNTER 2023-04-06 10:10 | Outpatient (CLI) | payer MEDICARE, SELFPAY ==
[2023-04-06 11:07] LABS: Anion Gap 7 mmol/L (8-16); Blood Urea Nitrogen 17 mg/dL (7-18); Calcium 8.7 mg/dL (8.5-10.1); Carbon Dioxide 28 mmol/L (21-32); Chloride 103 mmol/L (98-108); Estimated Glomerular Filt Rate > 60; Glucose 105 mg/dL (70-99); Osmolality Calculated 287 mOsm/kg (285-295); Potassium 4.2 mmol/L (3.5-5.1); Sodium 138 mmol/L (136-145)
== END 2023-04-06 10:11 | disposition home or self-care (01) ==
LOC: CHSLAB 10:12
PROVIDERS: PCP Internal Medicine; Visit Provider Internal Medicine
DX: E87.1 Hypo-osmolality and hyponatremia (principal)
CPT/HCPCS: 36415; 80048

== ENCOUNTER 2023-06-29 11:34 | Outpatient (CLI) | payer MEDICARE, SELFPAY ==
--- NOTE | ~2023-06-29 | CT_ITS ---
CT of the Abdomen and Pelvis: Indication: Microscopic hematuria Technique: 2.5 mm axial scans were obtained through the abdomen and pelvis following intravenous adm inistration of 100 cc of Omnipaque 350. Dose reduction technique was used on this scan by utilizing a utomated exposure control and iterative reconstruction technique. The dose-length product (DLP) was 1 009.09 mGy-cm. COMPARISON: 04/03/2023 Findings: Scans through the lung bases are unremarkable. The liver, spleen, pancreas, adrenals and kidneys are within normal limits. Cholecystectomy clips are present. There are atherosclerotic calcifications of the aorta. No lymphadenopathy. No bowel obstruction or bowel wall thickening. There is no evidence to suggest acute appendicitis. Images through the pelvis are degraded by streak artifact from right hip arthroplasty. Urinary bladde r grossly unremarkable. Probable calcified uterine fibroids. No ascites. Stable L1 compression fractu re. Impression: No etiology for hematuria identified. Stable L1 compression fracture. Calcified uterine fibroids. Reviewed, dictated and finalized at location . OR ADMINISTRATIVE SUPPORT Impression: No etiology for hematuria identified. Stable L1 compression fracture. Calcified uterine fibroids.
[2023-06-29 12:04] LABS: Estimated Glomerular Filt Rate > 60
== END 2023-06-29 11:35 | disposition home or self-care (01) ==
PROVIDERS: PCP Internal Medicine; Visit Provider Urology
DX: R31.29 Other microscopic hematuria (principal); M48.56XA Collapsed vertebra, not elsewhere classified, lumbar region, initial encounter for fracture; D25.9 Leiomyoma of uterus, unspecified
CPT/HCPCS: 74177; Q9967

== ENCOUNTER 2024-02-27 16:12 | Outpatient (CLI) | payer MEDICARE, SELFPAY ==
--- NOTE | ~2024-02-27 | CT_ITS ---
EXAMINATION: CT abdomen pelvis w con DATE: 02/27/2024 17:16 INDICATION: Right flank pain. Right lower quadrant abdominal pain. Nausea and vomiting. TECHNIQUE: Computed tomography (CT) of the abdomen and pelvis was performed with 100 mL Omnipaque 350 intravenous contrast. Automated exposure control and iterative reconstruction technique were employe d. The dose-length product was 945.49 mGy-cm. COMPARISON: CT abdomen and pelvis 06/29/2023 FINDINGS: The visualized portions of the lung bases demonstrate minimal atelectasis. No pleural effus ion. There is left atrial enlargement of the heart. No pericardial effusion. The liver is normal. Khang cifications in the spleen are consistent with old granulomatous disease. There are changes of cholecy stectomy. The pancreas, adrenal glands, and kidneys are normal. There are multiple uterine fibroids m easuring up to 2.6 cm. There are no dilated loops of bowel. The appendix is normal. There is calcifie d atherosclerosis of the aorta and many of the other arteries. There are no pathologically enlarged l ymph nodes. There is no free intraperitoneal fluid. There is a total right hip arthroplasty. There is severe lumbar spondylosis. There is a chronic burst fracture of L1. IMPRESSION: 1. Uterine fibroids. Reviewed, dictated and finalized at location E. IMPRESSION: 1. Uterine fibroids.
[2024-02-27 16:33] LABS: Appearance Urine Clear (Clear); Bilirubin Urine Negative (Negative); Blood Urine 1+ (Negative); Color Urine Yellow (Yellow); Glucose Urine UA Negative (Negative); Hematocrit 41.1 % (35.0-42.0); Ketones Urine 3+ (Negative); Leukocyte Esterase Ur Negative (Negative); Mean Corpuscular HGB Conc 34.1 g/dL (32-36); Mean Corpuscular Hemoglobin 29.9 pg (27.0-31.0); Mean Corpuscular Volume 87.8 fL (78.0-102.0); Mean Platelet Volume 10.4 fl (9.2-11.8); Nitrate Urine Negative (Negative); Platelet Count Result 319 K/mm3 (150-420); Protein Urine 2+ (Negative); Red Blood Count 4.68 M/mm3 (4.20-5.40); Red Cell Distribution Width 12.5 % (11.6-14.4); White Blood Count 8.7 K/mm3 (4.8-10.8)
[2024-02-27 16:37] LABS: Add Urine Microscopic? YES; Bacteria Urine 1+ /hpf; Squamous Epithelial Cell Urine Few /hpf (Few); WBC Urine None seen /hpf (0-3)
[2024-02-27 16:41] LABS: Alanine Aminotransferase 26 U/L (14-59); Albumin Level 4.1 g/dL (3.4-5.0); Alkaline Phosphatase 60 U/L (46-116); Amylase 25 U/L (25-115); Anion Gap 10 mmol/L (4-12); Aspartate Amino Transferase 19 U/L (15-37); Bilirubin,Total 1.3 mg/dL (0.00-1.00); Blood Urea Nitrogen 11 mg/dL (7-18); Carbon Dioxide 29 mmol/L (21-32); Chloride 97 mmol/L (98-108); Estimated Glomerular Filt Rate > 60; Glucose 172 mg/dL (70-99); Lipase 10 U/L (16-77); Osmolality Calculated 285 mOsm/kg (285-295); Potassium 3.8 mmol/L (3.5-5.1); Sodium 136 mmol/L (136-145); Total Protein 7.8 g/dL (6.4-8.2)
[2024-02-27 16:48] LABS: Lactic Acid Reflex 0.9 mmol/L (0.4-2.0)
== END 2024-02-27 16:13 | disposition home or self-care (01) ==
PROVIDERS: PCP Internal Medicine; Visit Provider Internal Medicine
DX: R10.31 Right lower quadrant pain (principal); R11.2 Nausea with vomiting, unspecified
CPT/HCPCS: 36415; 74177; 80053; 81001; 82150; 83605; 83690; 85027; 87086; 87088; Q9967

== ENCOUNTER 2024-03-06 09:54 | Outpatient (CLI) | payer MEDICARE, SELFPAY ==
--- NOTE | ~2024-03-06 | MR_ITS ---
MRI of the lumbar spine Clinical History: Radiculopathy Technique: Axial T2-weighted images, and sagittal T1-weighted, T2-weighted, and and T2 fat-sat images were acquired. COMPARISON: 04/05/2023 Findings: Chronic compression deformity of L1 is present, stable from prior exam. No acute fracture o r subluxation seen. No suspicious bone marrow signal abnormality seen. At L1-L2, there is diffuse disc bulge and severe facet arthropathy, with moderate to severe spinal ca nal stenosis/thecal sac compression. There is preservation neural foramina. At L2-L3, there is diffuse disc bulge and severe facet arthropathy, with severe spinal canal stenosis /thecal sac compression. Neural foramina are preserved. At L3-L4, there is severe degenerative disc narrowing. There is mild disc bulge and severe facet arth ropathy. No central canal stenosis. There is minimal bilateral neural foraminal narrowing. At L4-L5, there is severe degenerative disc narrowing. There is diffuse disc bulge and moderate facet arthropathy. No central canal stenosis. There is mild bilateral neural foraminal narrowing. At L5-S1, there is diffuse disc bulge and severe facet arthropathy. No central canal stenosis. There is severe bilateral neural foraminal narrowing, right worse than left. Paravertebral soft tissues are unremarkable. Impression: Stable chronic L1 compression fracture deformity. Advanced degenerative spondylosis, as detailed above, with multilevel neural foraminal narrowing and spinal canal stenosis. Reviewed, dictated and finalized at [facility]. Impression: Stable chronic L1 compression fracture deformity. Advanced degenerative spondylosis, as detailed above, with multilevel neural fo raminal narrowing and spinal canal stenosis.
== END 2024-03-06 09:55 | disposition home or self-care (01) ==
LOC: CHSIMG 09:56
PROVIDERS: PCP Internal Medicine; Visit Provider Internal Medicine
DX: M54.16 Radiculopathy, lumbar region (principal); M48.56XA Collapsed vertebra, not elsewhere classified, lumbar region, initial encounter for fracture; M43.06 Spondylolysis, lumbar region; M48.061 Spinal stenosis, lumbar region without neurogenic claudication
CPT/HCPCS: 72148

== ENCOUNTER 2024-03-14 15:22 | Emergency (ER) | payer MEDICARE, SELFPAY ==
[2024-03-14 15:23] VITALS: BP 173/83; PULSE 83; RESP 18; TEMP 36.4; O2SAT 97
--- NOTE | 2024-03-14 16:20 | ED.BACK ---
HPI - Back Pain/Injury General Chief Complaint: Back Pain/Injury Stated Complaint: back pain Time Seen by Provider: 03/14/24 15:54 Source: patient Mode of arrival: ambulatory Limitations: no limitations History of Present Illness HPI Narrative: Patient is a 73 year female with chronic back pain. She has known thoracic burst fracture. MRI positive. Her primary doctor has put her on sleeping medicine of Ativan. They have put her on Percocet as needed. She has recently been prescribed fentanyl which she can get today. She has a plan for back surgery soon. MD elicited complaint: back pain Pertinent past history: prior back pain Onset (ago): year(s) (2) Timing: constant Severity: severe Pain scale (0-10): 8 Similar Symptoms Previously: Yes Quality: sharp and stabbing Location: thoracic spine Radiation: none Exacerbating factors: movement Relieving factors: none Context: fall ( Two years ago fell back onto her back) Associated symptoms: denies other symptoms Treatments prior to arrival: prescription analgesics and other medications Related Data Home Medications Medication Instructions Recorded Confirmed acetaminophen 500 mg tablet 500 mg PO Q6H PRN Pain (Scale 08/24/22 01/10/23 Score 1-3) carvedilol 12.5 mg tablet 12.5 mg PO Q12H 08/24/22 01/10/23 cetirizine 10 mg tablet 10 mg PO DAILY PRN Allergy Symptoms 08/24/22 01/10/23 cholecalciferol (vitamin D3) 25 25 mcg PO DAILY 08/24/22 01/10/23 mcg (1,000 unit) capsule citalopram 20 mg tablet 20 mg PO DAILY 08/24/22 01/10/23 insulin aspart U-100 100 unit/mL 5 unit subcut TID 08/24/22 01/10/23 (3 mL) subcutaneous pen (Novolog FlexPen U-100 Insulin aspart) lorazepam 1 mg tablet 1 mg PO HS PRN Anxiety 08/24/22 01/10/23 lovastatin 40 mg tablet 40 mg PO QPM 08/24/22 01/10/23 mecobalamin (vitamin B12) 1,000 1,000 mcg PO DAILY 08/24/22 01/10/23 mcg chewable tablet (B12 Active) omeprazole 20 mg capsule,delayed 20 mg PO DAILY 08/24/22 01/10/23 release potassium chloride 10 mEq 20 meq PO DAILY 08/24/22 01/10/23 capsule,extended release Allergies Allergy/AdvReac Type Severity Reaction Status Date / Time acetaminophen [From Vicodin] Allergy Nausea Verified 03/14/24 15:28 hydrocodone [From Vicodin] Allergy Nausea Verified 03/14/24 15:28 Sulfa (Sulfonamide Allergy Hives Verified 03/14/24 15:28 Antibiotics) semaglutide AdvReac Abdominal Verified 03/14/24 15:28 Pain Review of Systems Review of Systems: All systems reviewed & are unremarkable except as noted in HPI and below Constitutional: Constitutional: Reports no additional constitutional complaints Eyes: Eyes: Reports no additional eye complaints ENT: Reports system reviewed and no additional complaints, except as documented Cardiovascular: Cardiovascular: Reports no additional cardiovascular complaints Respiratory: Respiratory: Reports no additional respiratory complaints Gastrointestinal: Gastrointestinal: Reports no additional gastrointestinal complaints Genitourinary: Genitourinary: Reports no additional female genitourinary complaints Musculoskeletal: Musculoskeletal: Reports no additional musculoskeletal complaints Integumentary/Breasts: Skin/Breast: Reports system reviewed and no additional complaints, except as docu Neurologic: Reports system reviewed and no additional complaints, except as documented Psychiatric: Psychiatric: Reports no additional psychiatric complaints Endocrine: Endocrine: Reports no additional endocrine complaints Hematologic/Lymphatic: Hematologic/Lymphatic: Reports no additional hematologic/lymphatic complaints Allergic/Immunologic: Allergic/Immunologic: Reports no additional allergic/immunologic complaints PMFSH Past Medical History Medical History Lumbar spondylosis Right hip pain Type 2 diabetes mellitus with hyperglycemia Surgical History Surgical History (Reviewed 03/14/24 @ 16:27 by Foreign
[2024-03-14 16:25] VITALS: BP 156/80; PULSE 80; RESP 17; TEMP 36.4; O2SAT 98
== END 2024-03-14 16:25 | disposition home or self-care (01) ==
PROVIDERS: Emergency Provider Emergency Medicine; PCP Internal Medicine
DX: S22.001D Stable burst fracture of unspecified thoracic vertebra, subsequent encounter for fracture with routine healing (principal); E11.9 Type 2 diabetes mellitus without complications; W19.XXXD Unspecified fall, subsequent encounter
CPT/HCPCS: 99283

== ENCOUNTER 2024-03-15 18:05 | Inpatient (IN) | payer MEDICARE, SELFPAY ==
--- NOTE | ~2024-03-15 | CT_ITS ---
CT brain wo con Ordering provider: Bernadette Winkler MD History: 73 years Female with . confusion . Comparison: None. Technique: CT of the head without contrast. Radiation reduction technique utilized. The dose-length product was 605.33 mGy-cm. 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 No No midline shift, mass eff ect or hemorrhage. The brain parenchyma and CSF spaces are otherwise normal. VISUALIZED PARANASAL SINUSES: Well aerated. MASTOIDS: Well aerated. BONES: Postoperative changes in the right frontal bone otherwise, The bones appear intact. SOFT TISSUES: Visualized nasopharynx is normal. Superficial soft tissues are normal. IMPRESSION: No acute intracranial findings. Reviewed, dictated and finalized at location A.
--- NOTE | ~2024-03-15 | XR_ITS ---
XR chest 1V Ordering provider: Bernadette Winkler MD History: 73 years Female with . confusion/AMS . Comparison: XR chest 1V Ordering provider: Bernadette Winkler MD History: 73 years Female with . confusion/AMS . Comparison: January 09, 2023 FINDINGS: MEDIASTINUM: The cardiac silhouette is not enlarged. LUNGS: No infiltrates, effusions or pneumothorax. OTHER: No free air under the diaphragm. Degenerative changes of the spine. IMPRESSION: No acute cardiopulmonary pathology. FINDINGS: MEDIASTINUM: The cardiac silhouette is not enlarged. LUNGS: No infiltrates, effusions or pneumothorax. OTHER: No free air under the diaphragm. IMPRESSION: Reviewed, dictated and finalized at location A. IMPRESSION: No acute cardiopulmonary pathology. FINDINGS: MEDIASTINUM: The cardiac silhouette is not enlarged. LUNGS: No infiltrates, effusions or pneumothorax. OTHER: No free air under the diaphragm. IMPRESSION:
[2024-03-15 18:09] VITALS: BP 129/71; PULSE 71; RESP 16; TEMP 37.2; O2SAT 98
--- NOTE | 2024-03-15 19:38 | ED.BACK ---
HPI - Back Pain/Injury General Chief Complaint: Back Pain/Injury Stated Complaint: back and hip pain Time Seen by Provider: 03/15/24 19:36 Source: patient and family Mode of arrival: ambulatory Limitations: no limitations History of Present Illness HPI Narrative: Patient presents with back and hip pain. She fell sustained a fracture requiring right total hip replacement previously by Dr Nascimento in [place]. She has continued to have pain since. She states that the pain on the right side of her hip is actually better today but she will also experience pain in her left leg wrapping around her thigh and down to her toes. She was seen for this 3 times this week by her primary care physician Dr Carol Simon. She states Dr. Simon recommend she be admitted to the hospital for pain control. For this, she presented to [facility] yesterday, on 03/14/2024. She states no imaging was performed although she did have an MRI performed approximately 3 weeks ago. She is in the process of trying to be seen by a neurosurgeon verses pain management. They were initially thinking of trying to see neurosurgeon Dr Vaughn but her primary care physician had recommended she see a neurosurgeon at [place] Dr. Lay. Has not yet established with either. She denies paresthesias. No interval falls or trauma. She notes she had been trialing Tylenol and ibuprofen. She has been prescribed narcotic medications by her primary care physician. She states she has been taking them but has been also confused attributes this to those medications. She is complaining of pain but then says that her pain is better. Yesterday when seen at [facility] she was prescribed short course of prednisone. Patient states I have pain at my thoracic spine but then when examined denies pain in this region. Related Data Home Medications Medication Instructions Recorded Confirmed acetaminophen 500 mg tablet 500 mg PO Q6H PRN Pain (Scale 08/24/22 03/15/24 Score 1-3) carvedilol 12.5 mg tablet 12.5 mg PO Q12H 08/24/22 03/15/24 cetirizine 10 mg tablet 10 mg PO DAILY PRN Allergy Symptoms 08/24/22 03/15/24 cholecalciferol (vitamin D3) 25 25 mcg PO DAILY 08/24/22 03/15/24 mcg (1,000 unit) capsule citalopram 20 mg tablet 20 mg PO DAILY 08/24/22 03/15/24 insulin aspart U-100 100 unit/mL 5 unit subcut TID 08/24/22 03/15/24 (3 mL) subcutaneous pen (Novolog FlexPen U-100 Insulin aspart) lorazepam 1 mg tablet 1 mg PO HS PRN Anxiety 08/24/22 03/15/24 lovastatin 40 mg tablet 40 mg PO QPM 08/24/22 03/15/24 mecobalamin (vitamin B12) 1,000 1,000 mcg PO DAILY 08/24/22 03/15/24 mcg chewable tablet (B12 Active) omeprazole 20 mg capsule,delayed 20 mg PO DAILY 08/24/22 03/15/24 release insulin glargine 100 unit/mL (3 40 unit subcut HS 03/15/24 03/16/24 mL) subcutaneous pen (Basaglar KwikPen U-100 Insulin) Allergies Allergy/AdvReac Type Severity Reaction Status Date / Time hydrocodone [From Vicodin] Allergy Nausea Verified 03/14/24 15:28 Sulfa (Sulfonamide Allergy Hives Verified 03/14/24 15:28 Antibiotics) semaglutide AdvReac Abdominal Verified 03/14/24 15:28 Pain PMFSH Past Medical History Medical History Lumbar spondylosis Right hip pain Type 2 diabetes mellitus with hyperglycemia Surgical History Surgical History History of back surgery At 23 years old History of brain surgery (04/29/21) History of lumbar laminectomy (~1973) History of lumpectomy of right breast (10/16/01) History of total right hip replacement Social History Social History Smoking status: Never smoker Second hand tobacco smoke exposure: No Alcohol intake: never Substance use: never Substance use type: does not use Do You Feel Safe in your Home?: Yes Lack of Transportation: No Lack of Food: Never True Current Trevon
[2024-03-15 20:26] LABS: Basophils Percent Auto 0.1 % (0.2-1.2); Hemoglobin 12.5 g/dL (12.0-15.0); Immature Granulocyte Absolute 0.03 K/mm3 (0.00-0.031); Immature Granulocyte Percent A 0.4 % (0-0.5); Lymphocytes Absolute Auto 0.98 K/mm3 (0.9-3.2); Mean Corpuscular HGB Conc 35.7 g/dl (32-36); Mean Corpuscular Hemoglobin 29.8 pg (26-34); Mean Corpuscular Volume 83.5 fl (80-100); Mean Platelet Volume 10.1 fl (7.4-10.4); Monocytes Absolute Auto 0.6 K/mm3 (0.1-0.6); Monocytes Percent Auto 8.3 % (2.6-8.5); Neutrophils Absolute Auto 5.4 K/mm3 (1.3-6.7); Neutrophils Percent Auto 77.2 % (45.5-73.1); Platelet Count Result 321 k/mm3 (150-375); Red Blood Count 4.19 M/mm3 (4.2-5.4); Red Cell Distribution Width 12.1 % (11.5-14.5)
[2024-03-15] MEDS: LIDOCAINE 5% PATCH 1 PATCH TRANSDERM (20:26)
[2024-03-15 20:42] LABS: Anion Gap 10 mmol/L (4-12); Blood Urea Nitrogen 27 mg/dL (7-17); Calcium 9.1 mg/dL (8.4-10.2); Carbon Dioxide 30 mmol/L (22-30); Chloride 80 mmol/L (98-107); Estimated CRCL calculation 55 ml/min; Estimated Glomerular Filt Rate > 60; Glucose 230 mg/dL (65-110); Magnesium 1.8 mg/dL (1.6-2.3); Potassium 3.5 mmol/L (3.4-5.0); Sodium 120 mmol/L (137-145)
[2024-03-15 20:49] LABS: Appearance Urine Clear (Clear); Bacteria Urine None Seen /hpf; Bilirubin Urine Negative (Negative); Blood Urine Negative (Negative); Color Urine Yellow (Yellow); Glucose Urine UA 1+ mg/dL (Negative); Ketones Urine Negative (Negative); Leukocyte Esterase Ur 1+ LEU/UL (Negative); Need Manual Microscopic Reviewed; Nitrate Urine Negative (Negative); Non Pathogenic Casts 0-2; Protein Urine Trace mg/dL (Negative); RBC Urine 0-2 /hpf (0-2); Squamous Epithelial Cell Urine None Seen /hpf (Few); Urobilinogen Urine 0.2 mg/dL (<2.0); WBC Urine 0-5 /hpf (0-3); pH Urine 5.5 (5.0-9.0)
[2024-03-15 20:52] LABS: Add Urine Microscopic? YES
[2024-03-15 21:13] LABS: Sodium Urine Random < 5 meq/L
[2024-03-15] MEDS: ACETAMINOPHEN 500 MG TABLET 1000 MG PO (21:34)
[2024-03-15] MEDS: KETOROLAC 15 MG/ML VIAL (*BKC) IV PUSH (21:34)
--- NOTE | 2024-03-15 21:56 | PM.IMHP ---
H&P: HPI History of Present Illness Date/Time: 03/15/24 21:56 Chief Complaint: ams Narrative: This is a 73-year-old female with past medical history significant for insulin-dependent diabetes mellitus, thoracic burst fracture, chronic back pain, diabetic peripheral neuropathy, Chronic diarrhea, patient is scheduled for back surgery, presents today to the emergency room due to altered mental status recently placed on Ativan Percocet and fentanyl. patient has had poor per orally intake due to pain rates her pain at 8/10 in intensity preliminary workup was significant for sodium 120 chloride 80. XR chest 1V Ordering provider: Bernadette Winkler MD History: 73 years Female with . confusion/AMS . Comparison: XR chest 1V Ordering provider: Bernadette Winkler MD History: 73 years Female with . confusion/AMS . Comparison: January 09, 2023 FINDINGS: MEDIASTINUM: The cardiac silhouette is not enlarged. LUNGS: No infiltrates, effusions or pneumothorax. OTHER: No free air under the diaphragm. Degenerative changes of the spine. IMPRESSION: No acute cardiopulmonary pathology. FINDINGS: MEDIASTINUM: The cardiac silhouette is not enlarged. LUNGS: No infiltrates, effusions or pneumothorax. OTHER: No free air under the diaphragm. IMPRESSION: Review of Systems Review of Systems: back pain Constitutional: Constitutional: Denies chills, Denies fever(s), Denies malaise, Reports poor appetite ( due to intractable back pain), Denies weakness and Reports weight loss ( due to poor per orally intake) Neurologic: Reports abnormal gait (shakes), Denies vertigo, Denies dizziness, Denies focal weakness, Reports radicular pain, Reports restless legs and Denies Sensory deficit (Neuro) Psychiatric: Psychiatric: Reports no additional psychiatric complaints and Reports as per HPI Endocrine: Endocrine: Denies cold intolerance, Denies heat intolerance, Denies polyphagia, Denies polydipsia, Denies polyuria and Denies palpitations Hematologic/Lymphatic: Hematologic/Lymphatic: Reports no additional hematologic/lymphatic complaints and Reports as per HPI Allergic/Immunologic: Allergic/Immunologic: Reports no additional allergic/immunologic complaints and Reports as per HPI [facility] Past Medical History Medical History (Updated 03/15/24 @ 23:46 by Anna Marie Bunn MD) Lumbar spondylosis Right hip pain Type 2 diabetes mellitus with hyperglycemia Surgical History Surgical History (Updated 03/15/24 @ 20:03 by Bernadette Winkler MD) History of back surgery At 23 years old History of brain surgery (04/29/21) History of lumbar laminectomy (~1973) History of lumpectomy of right breast (10/16/01) History of total right hip replacement Social History Social History Smoking status: Never smoker Meds Home Medications and Allergies Home Medications Medication Instructions Recorded Confirmed Type acetaminophen 500 mg tablet 500 mg PO Q6H PRN Pain (Scale 08/24/22 03/15/24 History Score 1-3) carvedilol 12.5 mg tablet 12.5 mg PO Q12H 08/24/22 03/15/24 History cetirizine 10 mg tablet 10 mg PO DAILY PRN Allergy Symptoms 08/24/22 03/15/24 History cholecalciferol (vitamin D3) 25 25 mcg PO DAILY 08/24/22 03/15/24 History mcg (1,000 unit) capsule citalopram 20 mg tablet 20 mg PO DAILY 08/24/22 03/15/24 History insulin aspart U-100 100 unit/mL 5 unit subcut TID 08/24/22 03/15/24 History (3 mL) subcutaneous pen (Novolog FlexPen U-100 Insulin aspart) lorazepam 1 mg tablet 1 mg PO HS PRN Anxiety 08/24/22 03/15/24 History lovastatin 40 mg tablet 40 mg PO QPM 08/24/22 03/15/24 History mecobalamin (vitamin B12) 1,000 1,000 mcg PO DAILY 08/24/22 03/15/24 History mcg chewable tablet (B12 Active) omeprazole 20 mg capsule,delayed 20 mg PO DAILY 08/24/22 03/15/24 History release insulin glargine 100 unit/mL (3 40 unit subcut HS 03/15/24 03/16/24 Histo
[2024-03-15 22:20] LABS: Influenza A QL RT-PCR Negative (Negative); Influenza B QL RT-PCR Negative (Negative); SARS-CoV-2 RNA PCR Negative (Negative)
[2024-03-15 23:24] VITALS: BMI 29.9
[2024-03-15 23:25] VITALS: BP 147/57; PULSE 72; RESP 16; TEMP 35.4; O2SAT 98
[2024-03-15 23:32] VITALS: BMI 28.8
--- NOTE | 2024-03-15 23:40 | ADMGEN ---
This patient, Minna Jarquin, was admitted to [facility] Surg Room 307-02. Patient/family oriented to hospital policies and general routines including ID bracelet, bed and alarms, visiting hours, pain management, procedures, bathroom and other care routines, personal items, smoking policy, room service/diet, and visiting hours. Information on how to activate the Rapid Response Team has been discussed. Patient/Family are encouraged to report perceived risks to care and to ask questions if they do not understand what they are told or what they should do.
--- NOTE | 2024-03-15 23:51 | ADMGEN ---
This patient, Minna Jarquin, was admitted to 3 [facility] Surg Room 307-02. Patient/family oriented to hospital policies and general routines including ID bracelet, bed and alarms, visiting hours, pain management, procedures, bathroom and other care routines, personal items, smoking policy, room service/diet, and visiting hours. Information on how to activate the Rapid Response Team has been discussed. Patient/Family are encouraged to report perceived risks to care and to ask questions if they do not understand what they are told or what they should do.
[2024-03-16 00:43] LABS: Glucose Point of Care 207 mg/dl (65-105)
[2024-03-16 02:21] VITALS: PULSE 76
[2024-03-16] MEDS: carvediloL 12.5 MG TABLET PO ×3 (02:21→20:08)
[2024-03-16] MEDS: SODIUM CHLORIDE 3% 100 ML 30 ML IV CONT (02:22)
[2024-03-16] MEDS: INSULIN GLARGINE (*BKC) 100 UNITS/ML 40 UNITS SUB-Q ×2 (02:22→20:08)
[2024-03-16] MEDS: KETOROLAC 30 MG/ML VIAL (*BKC) IV PUSH (02:32)
[2024-03-16 05:53] VITALS: BP 149/58; PULSE 72; RESP 16; TEMP 35.7; O2SAT 97
[2024-03-16 06:42] LABS: Anion Gap 11 mmol/L (4-12); Blood Urea Nitrogen 33 mg/dL (7-17); Calcium 9.6 mg/dL (8.4-10.2); Carbon Dioxide 30 mmol/L (22-30); Chloride 83 mmol/L (98-107); Estimated CRCL calculation 42 ml/min; Estimated Glomerular Filt Rate 44; Glucose 158 mg/dL (65-110); Potassium 3.4 mmol/L (3.4-5.0); Sodium 124 mmol/L (137-145)
[2024-03-16 07:27] LABS: Basophils Percent Auto 0.3 % (0.2-1.2); Eosinophils Percent Auto 0.3 % (0-4.4); Hematocrit 37.4 % (37.0-47.0); Hemoglobin 13.4 g/dL (12.0-15.0); Immature Granulocyte Absolute 0.06 K/mm3 (0.00-0.031); Immature Granulocyte Percent A 0.5 % (0-0.5); Lymphocytes Absolute Auto 3.54 K/mm3 (0.9-3.2); Lymphocytes Percent Auto 31.8 % (18.3-44.2); Mean Corpuscular HGB Conc 35.8 g/dl (32-36); Mean Corpuscular Hemoglobin 30.1 pg (26-34); Mean Platelet Volume 10.9 fl (7.4-10.4); Monocytes Absolute Auto 1.2 K/mm3 (0.1-0.6); Monocytes Percent Auto 10.4 % (2.6-8.5); Neutrophils Absolute Auto 6.3 K/mm3 (1.3-6.7); Neutrophils Percent Auto 56.7 % (45.5-73.1); Platelet Count Result 352 k/mm3 (150-375); Red Blood Count 4.45 M/mm3 (4.2-5.4); Red Cell Distribution Width 12.2 % (11.5-14.5); White Blood Count 11.1 K/mm3 (4.5-10.0)
--- NOTE | 2024-03-16 07:30 | PM.IMPN ---
Progress Note: A&P Assessment and Plan (1) Hyponatremia: Code(s): E87.1 - Hypo-osmolality and hyponatremia Status: Acute Assessment and Plan: Na 120 on admission. Recieved 3% normal saline in the ED. - Na 124 on am labs, 123 on reassessment - Started on 0.45 NS IV - Continue fluid restriction - Urine sodium <5, Urine creatinine 57 - Urine osmol pending (2) Hypertension: Code(s): I10 - Essential (primary) hypertension Status: Acute Assessment and Plan: Chronic, well controlled on home medications. - Carvedilol 12.5 mg BID - Monitor (3) Chronic pain: Code(s): G89.29 - Other chronic pain Status: Acute Assessment and Plan: Patient has history of total right hip [place] [address] Nascimento. Lumbar spine MRI with stable L1 compression fracture and advanced degenerative spondylosis with multilevel narrowing and spinal canal stenosis. She was seen by her PCP, Dr. Simon for pain of the left leg wrapping around her thigh and down to her toes. Dr. Simon recommend she be admitted for pain control. - Patient waiting to hear from Dr. Lay for neurosurgery - Analgesics Time Spent With Patient Time with patient: 25 - 35 minutes Subjective Date/time seen: 03/16/24 07:30 Interval history: 73 year old female with past medical history of insulin dependent diabetes, hypertension, hyperlipidemia, presents to the hospital with back/hip pain and altered mental status. Patient is pleasant lying comfortably in bed. She states her pain is well controlled on current pain regimen. She denies pain at this time and has no tingling/numbness to either extremity. Patients sodium remains low. She was started on IV 0.45 NS and will continue to monitor. She denies chest pain, shortness of breath, nausea/vomiting, dizziness, lightheadedness, and changes in bowel/bladder. Review of Systems Review of Systems: All systems reviewed & are unremarkable except as noted in HPI and below Exam Narrative: AF HR 72 RR 16 SpO2 97 BP 149/58 General: female in no acute respiratory distress who is nontoxic appearing, lying semi recumbent in bed. HEENT: Normocephalic. Atraumatic. No facial asymmetry. Chest: Lungs are clear to auscultation bilaterally. No wheezes or crackles. CV: Heart was regular rate and rhythm. S1-S2. No murmurs, gallops, or rubs. Abd: Abdomen was soft. Nontender. Nondistended. Positive bowel sounds. No organomegaly or masses. Ext: No clubbing, cyanosis, or edema. 2+ DP pulses bilaterally. Neuro: Patient is alert and oriented x4. Strength is 5/5 in both upper and lower extremities. Cranial nerves 2-12 are intact. Speech is clear. Psych: Normal mood and affect. Patient is pleasant and cooperative. Objective Data Vital Signs Vital Signs: Vital Signs - 24 hr 03/15/24 18:09 03/15/24 23:25 03/16/24 02:21 Temperature 98.9 F 95.7 F L Pulse Rate 71 72 76 Respiratory Rate 16 16 Blood Pressure 129/71 147/57 H Pulse Oximetry 98 98 Oxygen Delivery 03/15/24 23:52 03/16/24 05:53 Temperature 96.2 F L Pulse Rate 72 Respiratory Rate 16 Blood Pressure 149/58 H Pulse Oximetry 97 Oxygen Delivery Room Air Intake/Output Intake/Output: Intake & Output 03/13/24 03/14/24 03/15/24 03/16/24 23:59 23:59 23:59 23:59 Intake Total 50 Balance 50 Meds/Results Medications: Active Medications Generic Name Dose Route Start Last Admin Trade Name Freq PRN Reason Stop Dose Admin Acetaminophen 650 mg 03/15/24 22:01 Acetaminophen 650 Mg Suppository RECTAL Q6H PRN Mild Pain (1-3) or Fever Carvedilol 12.5 mg 03/16/24 01:40 03/16/24 02:21 Carvedilol 12.5 Mg Tablet PO 12.5 mg Q12HR SHORTY Administration Citalopram Hydrobromide 20 mg 03/16/24 09:00 Citalopram Hydrobromide 20 Mg Tablet PO DAILY SHORTY Cyanocobalamin 1,000 mcg 03/16/24 09:00 Cyanocobalamin 1,000 Mcg Tablet PO QAM SHORTY Dextrose 12.5 gm
[2024-03-16 07:41] LABS: Alanine Aminotransferase 31 U/L (6-35); Albumin Level 4.9 g/dL (3.5-5.1); Alkaline Phosphatase 53 U/L (38-126); Aspartate Amino Transferase 40 U/L (14-36); Bilirubin,Total 1.8 mg/dL (0.2-1.3)
[2024-03-16 08:13] LABS: Glucose Point of Care 127 mg/dl (65-105)
[2024-03-16] MEDS: INSULIN ASPART (*BKC) 100 UNITS/ML SUB-Q ×2 (08:50→17:48)
[2024-03-16] MEDS: CHOLECALCIFEROL 1,000 UNITS TABLET 1000 UNITS PO (08:50)
[2024-03-16] MEDS: PANTOPRAZOLE 40 MG TABLET PO (08:50)
[2024-03-16] MEDS: CYANOCOBALAMIN 1,000 MCG TABLET 1000 MCG PO (08:50)
[2024-03-16] MEDS: CITALOPRAM HYDROBROMIDE 20 MG TABLET PO (08:50)
[2024-03-16] MEDS: SODIUM CHLORIDE 0.45% 1,000 ML 100 ML IV CONT ×2 (08:53→18:30)
[2024-03-16 12:08] LABS: Glucose Point of Care 68 mg/dl (65-105)
[2024-03-16 12:16] LABS: Sodium 123 mmol/L (137-145)
[2024-03-16 12:37] LABS: Glucose Point of Care 89 mg/dl (65-105)
[2024-03-16 12:43] VITALS: PULSE 70
[2024-03-16 14:00] VITALS: BP 143/54; PULSE 71; RESP 16; TEMP 36.5; O2SAT 100
[2024-03-16 17:39] LABS: Glucose Point of Care 177 mg/dl (65-105)
[2024-03-16] MEDS: LOVASTATIN 20 MG TABLET 40 MG PO (17:47)
[2024-03-16] MEDS: traMADol HCL (*CRX) 50 MG TABLET PO (18:26)
--- NOTE | 2024-03-16 20:06 | PC.NURSE ---
On 03/16/24, the ART CLASS MODEL, Mary Kate, provided care and completed [facility] documentation on this patient. I have reviewed the ART CLASS MODEL's documentation and agree with the findings.
[2024-03-16 20:08] VITALS: PULSE 64
[2024-03-16 20:10] LABS: Glucose Point of Care 156 mg/dl (65-105)
[2024-03-16 21:06] VITALS: BP 150/57; PULSE 67; RESP 16; TEMP 36.4; O2SAT 98
[2024-03-17] VITALS (8 sets, daily range): BP systolic 151–200; BP diastolic 66–94; PULSE 66–100; RESP 16–18; TEMP 36.2–36.4; O2SAT 99
[2024-03-17] MEDS: traMADol HCL (*CRX) 50 MG TABLET PO ×3 (02:31→19:32)
[2024-03-17] MEDS: KETOROLAC 30 MG/ML VIAL (*BKC) IV PUSH (04:19)
[2024-03-17] MEDS: SODIUM CHLORIDE 0.45% 1,000 ML 100 ML IV CONT (04:24)
[2024-03-17 05:52] LABS: Basophils Absolute Auto 0.1 K/mm3 (0.0-0.1); Basophils Percent Auto 0.6 % (0.2-1.2); Eosinophils Absolute Auto 0.1 K/mm3 (0-0.3); Eosinophils Percent Auto 0.7 % (0-4.4); Hemoglobin 12.8 g/dL (12.0-15.0); Immature Granulocyte Absolute 0.04 K/mm3 (0.00-0.031); Immature Granulocyte Percent A 0.5 % (0-0.5); Lymphocytes Absolute Auto 2.94 K/mm3 (0.9-3.2); Lymphocytes Percent Auto 35.4 % (18.3-44.2); Mean Corpuscular HGB Conc 35.6 g/dl (32-36); Mean Corpuscular Hemoglobin 29.8 pg (26-34); Mean Corpuscular Volume 83.9 fl (80-100); Mean Platelet Volume 10.4 fl (7.4-10.4); Monocytes Percent Auto 11.6 % (2.6-8.5); Neutrophils Absolute Auto 4.3 K/mm3 (1.3-6.7); Neutrophils Percent Auto 51.2 % (45.5-73.1); Platelet Count Result 318 k/mm3 (150-375); Red Blood Count 4.29 M/mm3 (4.2-5.4); Red Cell Distribution Width 12.1 % (11.5-14.5); White Blood Count 8.3 K/mm3 (4.5-10.0)
[2024-03-17 06:03] LABS: Alanine Aminotransferase 34 U/L (6-35); Albumin Level 4.3 g/dL (3.5-5.1); Alkaline Phosphatase 77 U/L (38-126); Anion Gap 9 mmol/L (4-12); Aspartate Amino Transferase 42 U/L (14-36); Bilirubin,Total 1.2 mg/dL (0.2-1.3); Blood Urea Nitrogen 27 mg/dL (7-17); Calcium 8.8 mg/dL (8.4-10.2); Carbon Dioxide 26 mmol/L (22-30); Chloride 88 mmol/L (98-107); Estimated CRCL calculation 55 ml/min; Estimated Glomerular Filt Rate > 60; Glucose 171 mg/dL (65-110); Potassium 3.3 mmol/L (3.4-5.0); Sodium 123 mmol/L (137-145)
[2024-03-17] MEDS: hydrALAZINE HCL 20 MG/ML VIAL 10 MG IV PUSH ×2 (06:04→15:28)
[2024-03-17] MEDS: CYANOCOBALAMIN 1,000 MCG TABLET 1000 MCG PO (08:26)
[2024-03-17] MEDS: LORATADINE 10 MG TABLET PO (08:26)
[2024-03-17] MEDS: PANTOPRAZOLE 40 MG TABLET PO (08:26)
[2024-03-17] MEDS: ACETAMINOPHEN 325 MG TABLET 650 MG PO ×2 (08:26)
[2024-03-17] MEDS: CHOLECALCIFEROL 1,000 UNITS TABLET 1000 UNITS PO (08:26)
[2024-03-17] MEDS: CITALOPRAM HYDROBROMIDE 20 MG TABLET PO (08:26)
[2024-03-17] MEDS: carvediloL 12.5 MG TABLET PO (08:26)
[2024-03-17] MEDS: INSULIN ASPART (*BKC) 100 UNITS/ML SUB-Q ×3 (08:27→17:44)
[2024-03-17 08:29] LABS: Glucose Point of Care 132 mg/dl (65-105)
--- NOTE | 2024-03-17 10:27 | PM.IMPN ---
Progress Note: A&P Assessment and Plan (1) Chronic pain: Code(s): G89.29 - Other chronic pain Status: Acute (2) Compression fracture: Status: Acute (3) Hyponatremia: Code(s): E87.1 - Hypo-osmolality and hyponatremia Status: Acute (4) Hypertension: Code(s): I10 - Essential (primary) hypertension Status: Acute Plan Elevated blood pressure in the a.m.. Receive hydralazine x1. Improved. Receiving her a.m. Coreg. Continue to trend. Presented with reported confusion. CT head on admission no acute findings. Chest x-ray without acute pathology. total R hip [place] [address] Nascimento L1 compression fracture. PCP is Dr. Simon. f/u with Dr. Lay for lumbar compression fracture mgmt. This patient presents on 03/15 for pain control for a stable compression fracture of her lumbar spine. She presents with a sodium of 120. Reportedly received hypertonic saline in the ER her sodium coming up to 124. She was then placed on half normal saline and her sodium has been persistently 123. She has been on a fluid restriction 1500 cc. Continue half-normal saline she has hypochloremia which is possibly due to the half-normal saline. She does not appear overly dehydrated, her blood pressure is high. The patient denies a toast diet or excessive intake of water. She has a history of removal of meningioma at [facility] in 2020. Her sodium in 2022 per our records have been between 123 and 133. Possible cerebral salt wasting? For, the urine sodium was less than 5. Urine osmolality is pending. Her serum osmolality has previously been low so this is likely hypotonic hyponatremia. Will check lipid panel as well. Check TSH as well. Consult Dr. Olaery for assistance. She is also on omeprazole and citalopram chronically which can lower serum sodium. Hypokalemia: Replaced with 20 mEq KCL tab x1. Recheck BMP at 4:00 p.m.. Check magnesium as well. Blood pressure very high in recheck. Increase Coreg to 25 mg p.o. b.i.d. and give hydralazine 10 mg IV x1. Full code. Lovenox. Patient request continue inpatient admission to monitor sodium levels. Subjective Date/time seen: 03/17/24 10:27 Interval history: Reports 4-5/10 pain at the lower back. Patient is agitated about being in the hospital although no other complaints. She denies cough nausea or diarrhea. Review of Systems Review of Systems: All systems reviewed & are unremarkable except as noted in HPI and below (Subjective) Exam Const: General: comfortable and no acute distress Other: A&O x3 Eyes: Pupils: Equal, round and reactive pupils present Neck: Neck: supple Resp: Effort & Inspection: normal respiratory effort Auscultation: clear to auscultation bilaterally Cardio: Rate: regular rate Rhythm: regular rhythm GI: GI Palp: Yes Soft to palpation and No Tenderness to palpation present (GI) Extrem: General: no edema Objective Data Vital Signs Vital Signs: Vital Signs - 24 hr 03/16/24 12:43 03/16/24 14:00 03/16/24 20:08 Temperature 97.7 F Pulse Rate 70 71 64 Respiratory Rate 16 Blood Pressure 143/54 H Pulse Oximetry 100 Oxygen Delivery 03/16/24 21:06 03/17/24 06:00 03/17/24 06:47 Temperature 97.5 F L 97.5 F L Pulse Rate 67 66 Respiratory Rate 16 16 Blood Pressure 150/57 H 200/70 H 174/66 H Pulse Oximetry 98 99 Oxygen Delivery 03/17/24 08:00 Temperature Pulse Rate Respiratory Rate Blood Pressure Pulse Oximetry Oxygen Delivery Room Air Intake/Output Intake/Output: Intake & Output 03/14/24 03/15/24 03/16/24 03/17/24 23:59 23:59 23:59 23:59 Intake Total 2101.7 1770 Balance 2101.7 1770 Meds/Results Medications: Active Medications Generic Name Dose Route Start Last Admin Trade Name Freq PRN Reason Stop Dose Admin Acetaminophen 650 mg 03/16/24 23:30 03/17/24 08:26 Acetaminophen 325 Mg Tablet PO 650 mg Q6H PRN Administration M
[2024-03-17] MEDS: POTASSIUM CHLORIDE 20 MEQ ER TABLET PO (12:40)
[2024-03-17 12:43] LABS: Glucose Point of Care 107 mg/dl (65-105)
--- NOTE | 2024-03-17 14:58 | PM.CNNEP ---
Assessment and Plan Assessment and plan (1) Hyponatremia: Code(s): E87.1 - Hypo-osmolality and hyponatremia Status: Acute Assessment and Plan: the patient has hyponatremia. She has had this off and on over the years. The patient has chronically been on omeprazole plus citalopram. These of course reduce the free water excretory ability of the kidneys. So if somebody does not drink much fluid the sodium level does not necessarily go down but if someone does drink a lot of fluid the sodium level might go down. The patient was on Percocet for the 4 days before admission. This may have further decreased the free water excretory ability of the kidneys. She has been drinking a lot of water lately as well. There are other causes of hyponatremia: DIRECTOR CARDIAC disease. CT of the brain was negative and there are no symptoms or history of this pulmonary disease. Chest x-ray is negative and there is no history or symptoms of this. Cancer. Her breast cancer is ANDREW. no active history of cancer. She should keep up-to-date with her cancer surveillance. Meds. She has chronic a on omeprazole and citalopram. she does have depression so will leave the citalopram alone as it is relatively low dose anyway. Will stop omeprazole and use Pepcid instead. We have to work around the narcotics also because her pain is severe. hormones can do this as well. Will check a TSH and a cortisol the patient already received hypertonic saline. Will start Lasix plus salt tablets to help bring the sodium up. Will continue fluid restriction. (2) Hypertension: Code(s): I10 - Essential (primary) hypertension Status: Acute Assessment and Plan: Blood pressure was very high last night. It is currently down to 151. She is on carvedilol. We will increase the dose of this. (3) Chronic pain: Code(s): G89.29 - Other chronic pain Status: Acute Assessment and Plan: The patient is on tramadol and citalopram History of Present Illness Reason for Consult Consult date: 03/17/24 Chief Complaint Chief complaint: hyponatremia, confusion History of Present Illness Narrative: Minna is a very pleasant 73-year-old lady who has multiple medical problems including diabetes, right hip pain, lumbar spondylosis, thoracic burst fracture, peripheral neuropathy, chronic diarrhea. The patient says she recently had some back problems and is going to have surgery for this at some point in the near future. The patient has been on narcotics at home to help control the pain. Four days before admission she received some Percocet. She became confused in the last couple of days and so family brought her to the ER. She was evaluated in the ER and found to have a low sodium. There is some question about how much of the Percocet she had taken. However, because the sodium was low it was felt that possibly the sodium was a cause of the altered mental status so they gave her 3% saline and brought the sodium from 120-124. Currently her mental status is back to normal. The patient was placed on fluid restriction and the sodium level stayed low at 124 so renal consultation was requested. The patient says she had low-sodium once in the past. Dr. Hope talked to her about it and told her to avoid large amounts of water and also to use salt tablets for a while. This did not last very long however. The sodium level has been low. Back in 2022 was down to 123 but improved to 133 by the end of that hospital stay. She has had another low sodium of 124 later that year in March. The 2 before this admission in 2022 and earlier this month as an outpatient were both okay. She said she does drink a lot of fluid. She does not have a history of cancer. She does not have any history of stroke or brain tumor other than a meningioma that was taken out decades ago. She has a history of breast cancer in the past but this was treated and
[2024-03-17 16:02] LABS: Glucose Point of Care 149 mg/dl (65-105)
[2024-03-17 16:47] LABS: Anion Gap 7 mmol/L (4-12); Blood Urea Nitrogen 24 mg/dL (7-17); Calcium 9.2 mg/dL (8.4-10.2); Carbon Dioxide 30 mmol/L (22-30); Chloride 91 mmol/L (98-107); Cholesterol 159 mg/dL (0-200); Estimated CRCL calculation 61 ml/min; Estimated Glomerular Filt Rate > 60; Glucose 139 mg/dL (65-110); HDL Direct 55 mg/dL; Potassium 3.3 mmol/L (3.4-5.0); Sodium 128 mmol/L (137-145); Triglycerides 154 mg/dL (<150)
[2024-03-17 16:58] LABS: LDL Cholesterol Direct 81 mg/dL
[2024-03-17] MEDS: LOVASTATIN 20 MG TABLET 40 MG PO (17:43)
[2024-03-17 18:08] LABS: Glucose Point of Care 141 mg/dl (65-105)
[2024-03-17 19:06] LABS: Sodium 128 mmol/L (137-145)
[2024-03-17] MEDS: carvediloL 25 MG TABLET PO (20:35)
[2024-03-17] MEDS: INSULIN GLARGINE (*BKC) 100 UNITS/ML 40 UNITS SUB-Q (20:37)
[2024-03-17] MEDS: LORazepam (*CRX) 0.5 MG TABLET PO (20:38)
[2024-03-17 22:00] LABS: Glucose Point of Care 117 mg/dl (65-105)
[2024-03-18] VITALS (7 sets, daily range): BP systolic 169–218; BP diastolic 50–74; PULSE 73–82; RESP 18–20; TEMP 35.8–37.2; O2SAT 99–100
[2024-03-18] MEDS: traMADol HCL (*CRX) 50 MG TABLET PO ×2 (03:06→17:09)
[2024-03-18] MEDS: ACETAMINOPHEN 325 MG TABLET 650 MG PO (03:46)
[2024-03-18] MEDS: hydrALAZINE HCL 20 MG/ML VIAL 10 MG IV PUSH ×2 (04:44→21:16)
[2024-03-18] MEDS: KETOROLAC 30 MG/ML VIAL (*BKC) IV PUSH (04:44)
[2024-03-18 06:25] LABS: Basophils Absolute Auto 0.1 K/mm3 (0.0-0.1); Basophils Percent Auto 0.7 % (0.2-1.2); Eosinophils Absolute Auto 0.1 K/mm3 (0-0.3); Eosinophils Percent Auto 1.1 % (0-4.4); Hematocrit 37.5 % (37.0-47.0); Hemoglobin 13.2 g/dL (12.0-15.0); Immature Granulocyte Absolute 0.02 K/mm3 (0.00-0.031); Immature Granulocyte Percent A 0.2 % (0-0.5); Lymphocytes Absolute Auto 2.38 K/mm3 (0.9-3.2); Lymphocytes Percent Auto 28.6 % (18.3-44.2); Mean Corpuscular HGB Conc 35.2 g/dl (32-36); Mean Corpuscular Hemoglobin 29.8 pg (26-34); Mean Corpuscular Volume 84.7 fl (80-100); Mean Platelet Volume 10.6 fl (7.4-10.4); Monocytes Percent Auto 11.4 % (2.6-8.5); Neutrophils Absolute Auto 4.8 K/mm3 (1.3-6.7); Platelet Count Result 371 k/mm3 (150-375); Red Blood Count 4.43 M/mm3 (4.2-5.4); Red Cell Distribution Width 12.6 % (11.5-14.5); White Blood Count 8.3 K/mm3 (4.5-10.0)
[2024-03-18 06:36] LABS: Alanine Aminotransferase 39 U/L (6-35); Albumin Level 4.7 g/dL (3.5-5.1); Alkaline Phosphatase 69 U/L (38-126); Anion Gap 13 mmol/L (4-12); Aspartate Amino Transferase 38 U/L (14-36); Bilirubin,Total 1.5 mg/dL (0.2-1.3); Blood Urea Nitrogen 21 mg/dL (7-17); Calcium 9.4 mg/dL (8.4-10.2); Carbon Dioxide 26 mmol/L (22-30); Chloride 93 mmol/L (98-107); Estimated CRCL calculation 70 ml/min; Estimated Glomerular Filt Rate > 60; Glucose 93 mg/dL (65-110); Magnesium 1.8 mg/dL (1.6-2.3); Phosphorus 3.6 mg/dL (2.5-4.5); Potassium 3.6 mmol/L (3.4-5.0); Sodium 132 mmol/L (137-145)
[2024-03-18 07:34] LABS: Glucose Point of Care 105 mg/dl (65-105)
--- NOTE | 2024-03-18 08:02 | PM.IMPN ---
Progress Note: A&P Assessment and Plan (1) Chronic pain: Code(s): G89.29 - Other chronic pain Status: Acute Assessment and Plan: Patient has history of total right hip replacement in [address] Nascimento. Lumbar spine MRI with stable L1 compression fracture and advanced degenerative spondylosis with multilevel narrowing and spinal canal stenosis. She was seen by her PCP, Dr. Simon for pain of the left leg wrapping around her thigh and down to her toes. Dr. Simon recommend she be admitted for pain control. - Patient waiting to hear from Dr. Lay for neurosurgery - Analgesics: Tramadol (2) Hyponatremia: Code(s): E87.1 - Hypo-osmolality and hyponatremia Status: Acute Assessment and Plan: Na 120 on admission. Recieved 3% normal saline in the ED. History of removal of meningioma at [facility] in 2020. Her sodium in 2022 per our records have been between 123 and 133. - Na 132 on am labs - Lasix 20 mg BID - Salt tabs - Continue fluid restriction 1500 cc - Urine sodium <5, Urine creatinine 57 - Urine osmol pending - Serum osmol pending - Lipid panel mildly elevated - TSH 1.780 - Nephrology consulted (3) Hypertension: Code(s): I10 - Essential (primary) hypertension Status: Acute Assessment and Plan: Chronic. Uncontrolled. -Blood pressures continue to be uncontrolled on increased dose of Carvedilol. - Carvedilol dose increased from 12.5 BID to 25 BID - Started Amlodipine 5 mg daily - Hydralazine 10 mg IV PRN - Continue to monitor (4) Insulin dependent diabetes mellitus: Status: Acute Assessment and Plan: - hypoglycemia protocol - POC blood glucose ACHS - home medication - Glargine 40 units daily, Aspart 5 units TID - correct regimen ordered - continue home regimen Time Spent With Patient Time with patient: 25 - 35 minutes Subjective Date/time seen: 03/18/24 08:02 Interval history: 73 year old female with past medical history of insulin dependent diabetes, meningioma excision, hypertension, hyperlipidemia, presents to the hospital with back/hip pain and altered mental status. Patient is pleasant lying comfortably in bed. She continues to have hypertension on the increased dose of Coreg. Will trial amlodipine today and continue to monitor pressures. Patient has no complaints at this time, denying chest pain, shortness of breath, palpitations, head aches, and vision changes. Her sodium has returned to baseline on am labs. She remains on the salt tabs, lasix, and fluid restriction. She denies pain during assessment, stating that her pain is currently well controlled on the pain regimen. She does note increased pain overnight. Review of Systems Review of Systems: All systems reviewed & are unremarkable except as noted in HPI and below Exam Narrative: AF HR 82 RR 20 SpO2 99 BP 184/50 General: female in no acute respiratory distress who is nontoxic appearing, lying semi recumbent in bed. HEENT: Normocephalic. Atraumatic. Pupils equal round reactive to light. Extraocular movement intact. No facial asymmetry. Chest: Lungs are clear to auscultation bilaterally. No wheezes or crackles. CV: Heart was regular rate and rhythm. S1-S2. No murmurs, gallops, or rubs. Abd: Abdomen was soft. Nontender. Nondistended. Positive bowel sounds. No organomegaly or masses. Ext: No clubbing, cyanosis, or edema. 2+ DP pulses bilaterally. Neuro: Strength is 5/5 in both upper and lower extremities. Speech is clear. Psych: Normal mood and affect. Patient is pleasant and cooperative. Skin: Warm and dry. No rashes noted. Objective Data Vital Signs Vital Signs: Vital Signs - 24 hr 03/17/24 10:32 03/17/24 14:00 03/17/24 15:22 Temperature 97.5 F L Pulse Rate 74 79 Respiratory Rate 17 Blood Pressure 151/66 H 190/94 H 190/94 H Pulse Oximetry 99 03/17/24 17:45 03/17/24 20:35 03/17/24 20:00 Temperature 97.2 F L Pulse Rate 85 100 74 Respiratory Rate 18
[2024-03-18] MEDS: carvediloL 25 MG TABLET PO ×2 (09:42→21:07)
[2024-03-18] MEDS: CHOLECALCIFEROL 1,000 UNITS TABLET 1000 UNITS PO (09:43)
[2024-03-18] MEDS: SODIUM CHLORIDE 500 MG TABLET 1000 MG PO ×2 (09:43→17:01)
[2024-03-18] MEDS: FUROSEMIDE 20 MG TABLET PO ×2 (09:43→17:02)
[2024-03-18] MEDS: PANTOPRAZOLE 40 MG TABLET PO (09:43)
[2024-03-18] MEDS: CITALOPRAM HYDROBROMIDE 20 MG TABLET PO (09:44)
[2024-03-18] MEDS: CYANOCOBALAMIN 1,000 MCG TABLET 1000 MCG PO (09:44)
[2024-03-18] MEDS: amLODIPine BESYLATE 5 MG TABLET PO ×2 (11:00→17:01)
--- NOTE | 2024-03-18 11:02 | PM.PNNEP ---
Progress Note: A&P Assessment and Plan (1) Hyponatremia: Code(s): E87.1 - Hypo-osmolality and hyponatremia Status: Acute Assessment and Plan: acute on chronic she has had low sodiums on/off over the last year or so risk factors for hyponatremia: omeprazole citalopram pain pain medications/narcotics increased free water intake evaluation to date: CT of brain negative (i.e. no SOCCER REFEREE disease/issue) CXR negative (i.e. no lung disease) no evidence of malignancy TSH and cortisol okay SPEP/UPEP pending sodium improving s/p 3% saline + fluid restriction + holding narcotics + holding omeprazole (on pepcid instead) just started on salt tabs and lasix (but sodium better prior to this intervention) follow repeat sodium levels (2) Hypertension: Code(s): I10 - Essential (primary) hypertension Status: Chronic Assessment and Plan: a bit elevated on carvedilol amlodipine added follow trend of hemodynamics (3) Chronic pain: Code(s): G89.29 - Other chronic pain Status: Acute Assessment and Plan: on tramadol was on Percocet prior to admission Will continue to follow. Subjective Date/time seen: 03/18/24 11:02 Interval history: Follow-up for acute on chronic hyponatremia. Chart reviewed -- assuming care from Dr. Oleary; sodium has improved with current interventions (s/p 3% saline, fluid restriction, and holding narcotics/PPI); sodium better this AM even prior to starting salt tabs and lasix (just started this today); BP still running a bit high; she is asking me about possible discharge. Exam Narrative: General: elderly but WD/WN female in NAD Heart: normal S1 and S2; no rub Lungs: clear to auscultation Abdomen: soft, nontender, nondistended, positive bowel sounds Extremities: no cyanosis or clubbing; no edema Skin: warm and dry Objective Data Vital Signs Vital Signs: Vital Signs Temp Pulse Resp BP Pulse Ox 03/18/24 11:00 169/55 H 03/18/24 09:42 82 03/18/24 05:52 96.5 F L 82 20 184/50 H 99 03/18/24 04:30 96.4 F L 73 20 218/74 H 100 03/17/24 20:00 97.2 F L 74 18 161/81 H 99 03/17/24 20:35 100 03/17/24 17:45 85 166/68 H 03/17/24 15:22 190/94 H 03/17/24 14:00 97.5 F L 79 17 190/94 H 99 Intake/Output Intake/Output: Intake & Output 03/15/24 03/16/24 03/17/24 03/18/24 23:59 23:59 23:59 23:59 Intake Total 2101.7 2270 240 Balance 2101.7 2270 240 Meds/Results Medications: Active Medications Generic Name Dose Route Start Last Admin Trade Name Freq PRN Reason Stop Dose Admin Acetaminophen 650 mg 03/16/24 23:30 03/18/24 03:46 Acetaminophen 325 Mg Tablet PO 650 mg Q6H PRN Administration Mild Pain (1-3) or Fever Amlodipine Besylate 5 mg 03/18/24 10:43 03/18/24 11:00 Amlodipine Besylate 5 Mg Tablet PO 5 mg DAILY SHORTY Administration Carvedilol 25 mg 03/17/24 21:00 03/18/24 09:42 Carvedilol 25 Mg Tablet PO 25 mg Q12HR SHORTY Administration Citalopram Hydrobromide 20 mg 03/16/24 09:00 03/18/24 09:44 Citalopram Hydrobromide 20 Mg Tablet PO 20 mg DAILY SOHRTY Administration Cyanocobalamin 1,000 mcg 03/16/24 09:00 03/18/24 09:44 Cyanocobalamin 1,000 Mcg Tablet PO 1,000 mcg QAM SHORTY Administration Dextrose 12.5 gm 03/15/24 22:06 Dextrose 50% 25 Gm/50 Ml Syringe IV PUSH PRN PRN Hypoglycemia Protocol Furosemide 20 mg 03/18/24 09:00 03/18/24 09:43 Furosemide 20 Mg Tablet PO 20 mg BID SHORTY Administration Glucagon 1 mg 03/15/24 22:06 Glucagon For Inj 1 Mg Vial IM PRN PRN Hypoglycemia Protocol Glucose 15 gm 03/15/24 22:06 Glucose Oral Gel 15 Gm Of Glucse In 37.5 Gm Tube PO PRN PRN Hypoglycemia Protocol Hydralazine HCl 10 mg 03/18/24 10:41 Hydralazine Hcl 20 Mg/Ml Vial IV PUSH Q8H PRN Blood Pressure Systoli
--- NOTE | 2024-03-18 11:02 | P.PNNP_ITS ---
Progress Note: A&P Assessment and Plan (1) Hyponatremia: Code(s): E87.1 - Hypo-osmolality and hyponatremia Status: Acute Assessment and Plan: * acute on chronic * she has had low sodiums on/off over the last year or so * risk factors for hyponatremia: * omeprazole * citalopram * pain * pain medications/narcotics * increased free water intake * evaluation to date: * CT of brain negative (i.e. no MOLECULAR GENETIC PATHOLOGIST disease/issue) * CXR negative (i.e. no lung disease) * no evidence of malignancy * TSH and cortisol okay * SPEP/UPEP pending * sodium improving s/p 3% saline + fluid restriction + holding narcotics + holding omeprazole (on pepcid instead) * just started on salt tabs and lasix (but sodium better prior to this int ervention) * follow repeat sodium levels (2) Hypertension: Code(s): I10 - Essential (primary) hypertension Status: Chronic Assessment and Plan: * a bit elevated * on carvedilol * amlodipine added * follow trend of hemodynamics (3) Chronic pain: Code(s): G89.29 - Other chronic pain Status: Acute Assessment and Plan: * on tramadol * was on Percocet prior to admission Will continue to follow. Subjective Date/time seen: 03/18/24 11:02 Interval history: Follow-up for acute on chronic hyponatremia. Chart reviewed -- assuming care from Dr. Oleary; sodium has improved with current interventions (s/p 3% saline, fluid restriction, and holding narcotics/PPI); sodium better this AM even prior to starting salt tabs and lasix (just started this today); BP still running a bit high; she is asking me about possible discharge. Exam Narrative: General: elderly but WD/WN female in NAD Heart: normal S1 and S2; no rub Lungs: clear to auscultation Abdomen: soft, nontender, nondistended, positive bowel sounds Extremities: no cyanosis or clubbing; no edema Skin: warm and dry Objective Data Vital Signs Vital Signs: Vital Signs Temp Pulse Resp BP Pulse Ox 03/18/24 11:00 169/55 H 03/18/24 09:42 82 03/18/24 05:52 96.5 F L 82 20 184/50 H 99 03/18/24 04:30 96.4 F L 73 20 218/74 H 100 03/17/24 20:00 97.2 F L 74 18 161/81 H 99 03/17/24 20:35 100 03/17/24 17:45 85 166/68 H 03/17/24 15:22 190/94 H 03/17/24 14:00 97.5 F L 79 17 190/94 H 99 Intake/Output Intake/Output: Intake & Output 03/15/24 03/16/24 03/17/24 03/18/24 23:59 23:59 23:59 23:59 Intake Total 2101.7 2270 240 Balance 2101.7 2270 240 Meds/Results Medications: Active Medications Generic Name Dose Route Start Last Admin Trade Name Rsoanna PRN Reason Stop Dose Admin Acetaminophen 650 mg 03/16/24 23:30 03/18/24 03:46 Acetaminophen 325 Mg Tablet PO 650 mg Q6H PRN Administration Mild Pain (1-3) or Fever Amlodipine Besylate 5 mg 03/18/24 10:43 03/18/24 11:00 Amlodipine Besylate 5 Mg Tablet PO 5 mg DAILY SHORTY Administration Carvedilol 25 mg 03/17/24 21:00 03/18/24 09:42 Carvedilol 25 Mg Tablet PO 25 mg Q12HR SHORTY Administration Citalopram Hydrobromide 2
[2024-03-18 11:30] LABS: Glucose Point of Care 142 mg/dl (65-105)
[2024-03-18 15:45] LABS: Creatinine Urine 5.8 mg/dL; Total Protein Urine Random 14 mg/dL; Ur Ttl Prot Creatinine Ratio 2.41 mg/mg (0-0.20)
[2024-03-18 15:47] LABS: Sodium Urine Random 65 meq/L
[2024-03-18 16:29] LABS: Glucose Point of Care 175 mg/dl (65-105)
[2024-03-18 16:33] LABS: Osmolality, Urine 246 mOsm/kg (50-1200)
[2024-03-18] MEDS: LOVASTATIN 20 MG TABLET 40 MG PO (17:02)
[2024-03-18] MEDS: INSULIN ASPART (*BKC) 100 UNITS/ML SUB-Q (17:02)
[2024-03-18] MEDS: INSULIN GLARGINE (*BKC) 100 UNITS/ML 40 UNITS SUB-Q (21:07)
[2024-03-18 21:16] LABS: Glucose Point of Care 154 mg/dl (65-105)
[2024-03-19 00:01] VITALS: BP 132/50; PULSE 78; O2SAT 96
[2024-03-19 05:49] LABS: Basophils Percent Auto 0.3 % (0.2-1.2); Eosinophils Absolute Auto 0.1 K/mm3 (0-0.3); Hematocrit 35.7 % (37.0-47.0); Hemoglobin 12.5 g/dL (12.0-15.0); Immature Granulocyte Absolute 0.02 K/mm3 (0.00-0.031); Immature Granulocyte Percent A 0.3 % (0-0.5); Lymphocytes Absolute Auto 2.05 K/mm3 (0.9-3.2); Mean Corpuscular Hemoglobin 30.3 pg (26-34); Mean Corpuscular Volume 86.7 fl (80-100); Mean Platelet Volume 9.9 fl (7.4-10.4); Monocytes Absolute Auto 0.8 K/mm3 (0.1-0.6); Monocytes Percent Auto 10.9 % (2.6-8.5); Neutrophils Absolute Auto 4.1 K/mm3 (1.3-6.7); Neutrophils Percent Auto 58.5 % (45.5-73.1); Platelet Count Result 313 k/mm3 (150-375); Red Blood Count 4.12 M/mm3 (4.2-5.4); Red Cell Distribution Width 12.6 % (11.5-14.5); White Blood Count 7.1 K/mm3 (4.5-10.0)
[2024-03-19] MEDS: traMADol HCL (*CRX) 50 MG TABLET PO (05:57)
[2024-03-19 06:00] VITALS: BP 172/69; PULSE 80; RESP 16; TEMP 36.5; O2SAT 100
[2024-03-19 06:00] LABS: Alanine Aminotransferase 33 U/L (6-35); Albumin Level 4.4 g/dL (3.5-5.1); Alkaline Phosphatase 58 U/L (38-126); Anion Gap 10 mmol/L (4-12); Aspartate Amino Transferase 29 U/L (14-36); Bilirubin,Total 1.6 mg/dL (0.2-1.3); Blood Urea Nitrogen 18 mg/dL (7-17); Calcium 8.9 mg/dL (8.4-10.2); Carbon Dioxide 29 mmol/L (22-30); Chloride 91 mmol/L (98-107); Estimated CRCL calculation 70 ml/min; Estimated Glomerular Filt Rate > 60; Glucose 111 mg/dL (65-110); Potassium 3.2 mmol/L (3.4-5.0); Sodium 130 mmol/L (137-145)
[2024-03-19 07:31] LABS: Glucose Point of Care 136 mg/dl (65-105)
[2024-03-19] MEDS: CITALOPRAM HYDROBROMIDE 20 MG TABLET PO (08:35)
[2024-03-19] MEDS: amLODIPine BESYLATE 10 MG TABLET PO (08:36)
[2024-03-19] MEDS: SODIUM CHLORIDE 500 MG TABLET 1000 MG PO (08:36)
[2024-03-19] MEDS: FUROSEMIDE 20 MG TABLET PO (08:36)
[2024-03-19] MEDS: CHOLECALCIFEROL 1,000 UNITS TABLET 1000 UNITS PO (08:36)
[2024-03-19] MEDS: carvediloL 25 MG TABLET PO (08:36)
[2024-03-19] MEDS: CYANOCOBALAMIN 1,000 MCG TABLET 1000 MCG PO (08:36)
[2024-03-19] MEDS: PANTOPRAZOLE 40 MG TABLET PO (08:36)
[2024-03-19] MEDS: ACETAMINOPHEN 325 MG TABLET 650 MG PO (08:38)
[2024-03-19] MEDS: INSULIN ASPART (*BKC) 100 UNITS/ML SUB-Q (08:39)
[2024-03-19 11:35] LABS: Glucose Point of Care 145 mg/dl (65-105)
--- NOTE | 2024-03-19 13:07 | PM.DS ---
DS: Admitting Diagnosis Discharge Date 03/19/24 Admitting Diagnosis Altered mental status Hyponatremia DS: Discharge Diagnosis Discharge Diagnosis (1) Hyponatremia: Code(s): E87.1 - Hypo-osmolality and hyponatremia Status: Acute (2) Acute on chronic back pain: Code(s): M54.9 - Dorsalgia, unspecified; G89.29 - Other chronic pain Status: Acute (3) Right hip pain: Code(s): M25.551 - Pain in right hip Status: Acute DS: Summary Hospital Course Reason for hospitalization: Copied from [facility] 03/15/24: This is a 73-year-old female with past medical history significant for insulin-dependent diabetes mellitus, thoracic burst fracture, chronic back pain, diabetic peripheral neuropathy, Chronic diarrhea, patient is scheduled for back surgery, presents today to the emergency room due to altered mental status recently placed on Ativan Percocet and fentanyl. patient has had poor per orally intake due to pain rates her pain at 8/10 in intensity preliminary workup was significant for sodium 120 chloride 80. Hospital Course: Ms Jarquin presented to the hospital for evaluation of altered mental status and was admitted for hyponatremia and pain control. Altered mental status Likely altered in the setting of opiates and benzos, but was also hyponatremic. --Percocet changed to tramadol 50 q6 prn Acute on Chronic pain Hx of total right hip replacement in [address] Nascimento. Lumbar spine MRI with stable L1 compression fracture and advanced degenerative spondylosis with multilevel narrowing and spinal canal stenosis. She was seen by her PCP, Dr. Simon for pain of the left leg wrapping around her thigh and down to her toes. Dr. Simon. Percocet was changed to tramadol 50 q6 prn. Reported muscle spasms at night so discharged with methocarbamol 250mg tonight then 500mg qhs prn -- Follow up with Dr. Lay, [facility] neurosurgery Hypo-osmolality and hyponatremia Na 120 on admission. Recieved 3% normal saline in the ED. History of removal of meningioma at [facility] in 2020. Her sodium in 2022 per our records have been between 123 and 133. Restricted fluids but no improvement so consulted renal and started furosemide 20 & Sodium chloride 1000mg BID. Na 130 at discharge. Urine sodium <5, Urine creatinine 57. Blood pressure more elevated with increased sodium. --Continue sodium chloride tabs 1000mg BID --Continue Lasix 20mg BID --BMP & mag in 1 week, patient goes to [facility] at her PCP's office --Liberalized salt in diet, discussed watching food labels Hypokalemia Potassium repleted. Continue 40meq x7 days with repeat potassium and then 20meq daily on lasix. Adjust as needed outpatient Magnesium 1.8, 200mg daily for 7 days with repeat labs in a week Hypertension: Chronic. Uncontrolled up to 200's. 172/69 at discharge Blood pressures continue to be uncontrolled on increased dose of Carvedilol. - Carvedilol dose increased from 12.5 BID to 25 BID - Started Amlodipine 5 mg daily. Received 10mg on 03/19. Blood pressure improving --Continue amlodipine 5mg daily --Pain control --Additional sodium exacerbating hypertension --Recommend checking blood pressure daily. If still elevated, increase as tolerated Insulin dependent diabetes mellitus: home medication - Glargine 40 units daily, Aspart 5 units TID, continued during admission with SSI and resumed at discharge Status at Discharge Cognitive/behavioral status at discharge: Alert & Oriented x4 Time Spent with Patient Time attestation: Total time spent providing and/or coordinating discharge services: 65 minutes Exam Narrative: General - Awake and alert. No acute distress Eyes - PERRLA, EOM intact ENT - No thrush, No erythema Neck - No noticeable or palpable swelling Lymph Nodes - No lymphadenopathy Cardiovascular - RRR no m/r/g, no JVD Lungs: Clear to auscultation, No wheezing, use of accessory muscles, no crackles or wheezes. Skin - Skin warm and dry, no woun
[2024-03-19 14:00] VITALS: BP 150/57; PULSE 76; RESP 18; TEMP 36.6; O2SAT 98
[2024-03-19 17:17] LABS: Albumin 4.1; Alpha 1 Globulin 0.2
[2024-03-19 17:18] LABS: Alpha 2 Globulin 0.6; Beta 1 Globulin 0.4; Gamma Globulin 0.9; Protein, Total 6.5
[2024-03-19 17:19] LABS: Interpretation No M Spike seen
[2024-03-20 15:53] LABS: Osmolality, Urine 183 mOsm/kg (50-1200)
== END 2024-03-19 14:25 | disposition home or self-care (01) | DRG 641 ==
LOC: ANHED 19:54 → ANH3MEDSUR 22:49
PROVIDERS: General Practice; Internal Medicine Nephrology; Student in an Organized Health Care Education/Training Program; Admitting Provider Internal Medicine; Emergency Provider Student in an Organized Health Care Education/Training Program; PCP Internal Medicine Cardiovascular Disease; Visit Provider Nurse Practitioner Acute Care
DX: E87.1 Hypo-osmolality and hyponatremia (principal); E87.6 Hypokalemia; E11.42 Type 2 diabetes mellitus with diabetic polyneuropathy; M54.9 Dorsalgia, unspecified; G89.29 Other chronic pain; M25.551 Pain in right hip; I10 Essential (primary) hypertension; M47.816 Spondylosis without myelopathy or radiculopathy, lumbar region; Z96.641 Presence of right artificial hip joint; E78.5 Hyperlipidemia, unspecified
CPT/HCPCS: 36415; 70450; 71045; 80048; 80053; 80061; 80069; 80076; 81001; 82533; 82570; 82948; 83735; 83930; 83935; 84155; 84156; 84165; 84295; 84300; 84443; 85025; 87636; 96374; 96376; 99285; A9270; G0378; J0360; J1815; J1885; J7131

== ENCOUNTER 2024-04-07 14:22 | Outpatient (RCR) | payer MEDICARE, SELFPAY ==
--- NOTE | 2024-04-07 15:30 | PTOPEVAL1 ---
Assessment and note entered by Tyrone Bowman Evaluation Information Assessment Status Evaluation Diagnosis lumbar radiculopathy ICD-10 Condition Codes (PT) Pain in low back M54.50 Onset 03/03/24 Subjective Information Pt. reports she developed low back pain about 5 weeks ago. She states that pain is across the low back and radiates all the way down the right leg. She states that she cannot sleep at night due to the pain. She states that her right leg will give out on her and she has been using a walker recently to avoid falling. She states that she has had 2-3 falls in the past 3 months. 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 She enjoys [employer], but cannot sit in [employer] due to her pain. She reports that she has had MRI and x-ray that revealed severe arthritis in her back. She states that her goal is to reduce her pain and improve her strength. Reported Pain Level Pain Score 6: Self Report Assessment PT Clinical Summary Pt. is a 73 year old female who enters the clinic with a medical diagnosis of back pain. she presents with functional decline, impaired gait, impaired trunk mobility, impaired l.e. strength and pain. Continued skilled PT is indicated in order to improve these areas to allow the pt. to be able to complete all IADL's with improved comfort and efficiency. Plan of Care Interventions Electrical Stimulation,Gait Training,Hot Pack/Cold Pack,Manual Therapy,Neuro Re-education,Patient/ Caregiver Educati,Therapeutic Activities, Therapeutic Exercise PT Services Indicated Yes Treatment Frequency and 2x/week x 10 visits Duration These treatments will address the objective and functional deficits as defined above. The patient will be advanced safely and appropriately in order for the patient to progress towards his/her prior level of function. Additional exercises will be introduced and as well as a comprehensive home exercise program upon discharge, if needed, ?to ensure carryover of functional gains achieved in the clinic. This treatment plan has been reviewed and agreement upon by the patient.
--- NOTE | 2024-04-07 15:30 | OPREHPOC ---
Outpatient Therapy Plan of Care This is a Multidisciplinary Plan of Care that may contain components documented by all disciplines (PT, OT, and ST.) PT Problem 1 PT Problem #1 Knowledge Deficit PT Goal 1 Goal / Goal Update Pt. will be independent with a HEP addressing strength and trunk mobility. Target Visit 2 PT Problem 2 PT Problem #2 Impaired Balance PT Goal 1 Goal / Goal Update Improve her tinetti score to 20 or greater indicating improved safety and balance Target Visit 10 PT Problem 3 PT Problem #3 Impaired Gait PT Goal 1 Goal / Goal Update Pt. will complete the 6 minute walk test over a distance of 500' with standard cane indicating improved gait efficiency PT Problem 4 PT Problem #4 Impaired Strength PT Goal 1 Goal / Goal Update Pt. will present with 4+/5 or greater gross l.e. strength to improve standing endurance. Target Visit 10
--- NOTE | 2024-04-17 13:10 | PCPTNOTE ---
Cancelled session. Patient reports she is hurting too bad and will not be in today.
== END 2024-07-06 23:59 | disposition home or self-care (01) ==
LOC: CHSPT 14:22
DX: M54.16 Radiculopathy, lumbar region (principal)
CPT/HCPCS: 97110; 97161

== ENCOUNTER 2024-04-16 11:41 | Outpatient (CLI) | payer MEDICARE, SELFPAY ==
--- NOTE | ~2024-04-16 | DEXA_ITS ---
Bone Density Report Name: KARLI GRUBER Age: 73 Sex: Female Ethnicity: White Date of : 1950 Indication: postmenopausal; screening for osteoporosis; parental hip fracture; cancer; Referring Provider: John Tijerina Study: Bone densitometry was performed. Exam Date: April 16, 2024 Accession number: [id number] Bone Density: Region BMD T-score Z-score Classification AP Spine(L1-L4) 1.540 4.5 6.7 Normal Femoral Neck (Left) 0.730 -1.1 0.9 Osteopenia Total Hip (Left) 0.844 -0.8 0.9 Normal World Health Organization criteria for BMD impression classify patients as: Normal (T-score at or above -1.0), Osteopenia (T-score between -1.0 and -2.5), or Osteoporosis (T-score at or below -2.5). 10-year Fracture Risk(1): Major Osteoporotic Fracture 14% Hip Fracture 4.0% Reported Risk Factors: [place] (), Neck BMD=0.730, BMI=27.3, parental fracture (1) FRAX(R) Version 3.08. Fracture probability calculated for an untreated patient. Fracture probability may be lower if the patient has received treatment. Clinical Information Provided by Patient: Parent has had a hip fracture Has used the following medications: Fosamax (i.e. alendronate), Vitamin D, Calcium Has the following medical conditions: Cancer Patient maximum height was 67 Menopause Age: 51 No regular weight bearing exercise Drinks caffeinated beverages Onset of menses at age 15 Number of children 0 Missed period for more than 6 months in a row Impression: The patient has low bone mass, based on the Left Femoral Neck T-score. The patient has an estimated ten-year risk of hip fracture of 4% and an estimated ten-year risk of major fracture of 14%, based on the WHO FRAX algorithm. The patient has risk factors, including: parental hip fracture. Discussion: BONE DENSITY IS LOW AT ONE OR MORE SKELETAL SITES. THE PATIENT'S BMD AND CLINICAL RISK FACTORS CONTRIBUTE TO THIS PATIENT'S INCREASED RISK OF FRACTURE. This patient's lowest T-score is low at one or more skeletal sites. It meets the World Health Organization's (WHO) criteria for ?low bone mass? (T-score between -1.0 and -2.5). The patient's 10-year risk of hip fracture as calculated by FRAX exceeds the threshold where pharmacological therapy is recommended by the National Osteoporosis Foundation (NOF). However, all treatment decisions require clinical judgment and consideration of individual patient factors, including patient preferences, comorbidities, previous drug use, risk factors not captured in the FRAX model (e.g., frailty, falls, vitamin D deficiency, increased bone turnover, interval significant decline in bone density) and possible under or overestimation of fracture risk by FRAX. The patient should follow a healthful lifestyle (good nutrition with adequate calcium and vitamin D, and appropriate weight-bearing exercis
== END 2024-04-16 11:42 | disposition home or self-care (01) ==
PROVIDERS: PCP Internal Medicine
DX: Z78.0 Asymptomatic menopausal state (principal); M85.88 Other specified disorders of bone density and structure, other site
CPT/HCPCS: 77080

== ENCOUNTER 2024-04-17 09:35 | Outpatient (CLI) | payer MEDICARE, SELFPAY ==
--- NOTE | ~2024-04-17 | MR_ITS ---
EXAMINATION: MR thoracic spine wo con DATE: 04/17/2024 10:34 INDICATION: Lumbar radiculopathy. Chronic bilateral leg pain. TECHNIQUE: Magnetic resonance imaging (MRI) of the thoracic spine was performed without intravenous c ontrast. Sagittal localizer T1-weighted FSE of the cervical spine was obtained. Thoracic spine sequen arturo included sagittal T2-weighted FSE, sagittal T1-weighted FSE, sagittal T2-weighted FS FSE, and axi al T2-weighted FSE. COMPARISON: None FINDINGS: Alignment is normal. There is mild chronic anterior wedging of T7, T8, T9, T10, and T11 jessy tebral bodies. There is a chronic burst fracture of L1 with 2/5 loss of height and retropulsion of leydi ne 3 mm into central spinal canal with mild central canal stenosis. There is mildly decreased disc he ight at most thoracic levels. There is moderately decreased disc height from T6-T7 through T10-T11 wi th endplate remodeling and Schmorl's nodes. There is multilevel facet joint osteoarthritis, severe at multiple levels in the upper thoracic spine. There is mild neural foraminal stenosis at multiple lev els in upper thoracic spine bilaterally. At T3-T4, the disc is bulging with mild central canal stenos is. At T4-T5, the disc is bulging with mild central canal stenosis. At T6-7, the disc is bulging with mild central calcinosis. At T7-T8, there is a right central extrusion with mild central canal stenos is. At T8-T9, there is a right central extrusion with mild central canal stenosis. The discs are bulg ing at T9-T10 and T10-T11 with mild canal stenosis. The spinal cord signal intensity is normal. The c onus medullaris is at T12-L1. IMPRESSION: 1. Moderate thoracic spondylosis. Reviewed, dictated and finalized at location A.
== END 2024-04-17 09:36 | disposition home or self-care (01) ==
LOC: CHSIMG 09:41
PROVIDERS: PCP Internal Medicine
DX: M54.16 Radiculopathy, lumbar region (principal); M43.04 Spondylolysis, thoracic region
CPT/HCPCS: 72146

== ENCOUNTER 2024-05-23 11:31 | Emergency (ER) | payer MEDICARE, SELFPAY ==
--- NOTE | ~2024-05-23 | CT_ITS ---
CT of the Abdomen and Pelvis: Indication: Abdominal pain Technique: 2.5 mm axial scans were obtained through the abdomen and pelvis following intravenous adm inistration of 100 cc of Omnipaque 350. Dose reduction technique was used on this scan by utilizing a utomated exposure control and iterative reconstruction technique. The dose-length product (DLP) was 1 069.02 mGy-cm. COMPARISON: 02/27/2024 Findings: Scans through the lung bases are unremarkable. The liver, spleen, pancreas, adrenals and kidneys are within normal limits. Cholecystectomy clips are present. There are atherosclerotic calcifications of the aorta. No lymphadenopathy. No bowel obstruction or bowel wall thickening. There is no evidence to suggest acute appendicitis. Images through the pelvis are degraded by streak artifact from right hip arthroplasty. Urinary bladde r appears unremarkable. Probable calcified fibroids. Chronic L1 compression fracture is unchanged. Impression: No acute abnormality seen. Chronic findings, as above. Reviewed, dictated and finalized at location . Impression: No acute abnormality seen. Chronic findings, as above.
[2024-05-23 11:35] VITALS: BP 168/72; PULSE 109; RESP 20; TEMP 37.2; O2SAT 100
--- NOTE | 2024-05-23 11:42 | ED.ABDPAIN ---
HPI - Abdominal Pain General Chief Complaint: Abdominal Pain Stated Complaint: constipation Source: patient and family Mode of arrival: ambulatory Limitations: no limitations History of Present Illness HPI narrative: Patient is a 73-year-old female with lower abdominal pain for the past 3 days. She has associated fever of 100.4 at home. He has some chills. She has not had a bowel movement in 3 days. She is on opioids for chronic back pain and upcoming surgery. She is constipated. MD elicited complaint: abdominal pain Pertinent past history: constipation ( She normally has bowel movement daily in small amount) Onset (ago): day(s) ( 3) Pain Consistency: constant Location: RLQ, LLQ and suprapubic Severity: moderate Pain scale (0-10): 8 Quality: sharp Radiation: none Migration to: no migration Exacerbating factors: nothing Relieving factors: nothing Context: confirms other ( opioids daily but did not take today) Associated symptoms: nausea, vomiting, fever, chills and constipation Related Data Home Medications Medication Instructions Recorded Confirmed acetaminophen 500 mg tablet 500 mg PO Q6H PRN Pain (Scale 08/24/22 03/15/24 Score 1-3) cetirizine 10 mg tablet 10 mg PO DAILY PRN Allergy Symptoms 08/24/22 03/15/24 cholecalciferol (vitamin D3) 25 25 mcg PO DAILY 08/24/22 03/15/24 mcg (1,000 unit) capsule citalopram 20 mg tablet 20 mg PO DAILY 08/24/22 03/15/24 insulin aspart U-100 100 unit/mL 5 unit subcut TID 08/24/22 03/15/24 (3 mL) subcutaneous pen (Novolog FlexPen U-100 Insulin aspart) lorazepam 1 mg tablet 1 mg PO HS PRN Anxiety 08/24/22 03/15/24 lovastatin 40 mg tablet 40 mg PO QPM 08/24/22 03/15/24 mecobalamin (vitamin B12) 1,000 1,000 mcg PO DAILY 08/24/22 03/15/24 mcg chewable tablet (B12 Active) omeprazole 20 mg capsule,delayed 20 mg PO DAILY 08/24/22 03/15/24 release insulin glargine 100 unit/mL (3 40 unit subcut HS 03/15/24 03/16/24 mL) subcutaneous pen (Basaglar KwikPen U-100 Insulin) Allergies Allergy/AdvReac Type Severity Reaction Status Date / Time hydrocodone [From Vicodin] Allergy Nausea Verified 03/14/24 15:28 Sulfa (Sulfonamide Allergy Hives Verified 03/14/24 15:28 Antibiotics) semaglutide AdvReac Abdominal Verified 03/14/24 15:28 Pain Review of Systems Review of Systems: All systems reviewed & are unremarkable except as noted in HPI and below Constitutional: Constitutional: Reports no additional constitutional complaints Eyes: Eyes: Reports no additional eye complaints ENT: Reports system reviewed and no additional complaints, except as documented Cardiovascular: Cardiovascular: Reports no additional cardiovascular complaints Respiratory: Respiratory: Reports no additional respiratory complaints Gastrointestinal: Gastrointestinal: Reports no additional gastrointestinal complaints Genitourinary: Genitourinary: Reports no additional female genitourinary complaints Musculoskeletal: Musculoskeletal: Reports no additional musculoskeletal complaints Integumentary/Breasts: Skin/Breast: Reports system reviewed and no additional complaints, except as docu Neurologic: Reports system reviewed and no additional complaints, except as documented Psychiatric: Psychiatric: Reports no additional psychiatric complaints Endocrine: Endocrine: Reports no additional endocrine complaints Hematologic/Lymphatic: Hematologic/Lymphatic: Reports no additional hematologic/lymphatic complaints Allergic/Immunologic: Allergic/Immunologic: Reports no additional allergic/immunologic complaints [facility] Past Medical History Medical History Lumbar spondylosis Right hip pain Type 2 diabetes mellitus with hyperglycemia Surgical History Surgical History History of back surgery At 23 years old History of brain surgery (04/29/21) History of lumbar laminectomy (~1973) History of lumpectomy of right breast (10/16/01) History of total right hip replacement Social History Social History Smoking status: Never smoker Second hand tobacco smoke exposure: No Alcohol intake: never Substance use: never Substance use type: does not use Do You Feel Safe in your Home?: Yes Lack of Transportation: No Lack of Food: Never True Current Housing: I Have Housing Concerned About Future Housing: No Difficulty Paying Gas/Electric Bills: No Difficulty Paying for Meds: No Currently Unemployed: No Education: High School Diploma/GED Difficulty w/ Childcare or Family Care: No Spiritual care concerns: No Exam Const: General: ill appearing Nutritional Appearance: well nourished Orientation/consciousness: patient oriented x3 Limitations: no limitations HENMT: Head: normal to inspection Ears: external ears normal Face/Nose/Sinus: Normal external nose present Eyes: Conjunctivae: conjunctivae normal Pupils: Equal, round and reactive pupils present EOM: EOMs intact bilaterally Neck: Neck: normal visual inspection Chest: Chest palpation & inspection: normal inspection of the chest Resp: Effort & Inspection: normal respiratory effort and not labored Auscultation: clear to auscultation bilaterally and no crackles Cardio: Rate: regular rate Rhythm: regular rhythm Heart sounds: no murmurs GI: Inspection: non-distended GI Palp: Yes Soft to palpation, Yes Tenderness to palpation present (GI) ( left lower quadrant and right lower quadrant and specifically suprapubic), Yes Guarding due to palpation present (GI), No Rigid due to palpation, No Hernia present, No Palpable mass present and Yes Rebound tenderness present Auscultation: absent bowel sounds and Hypoactive bowel sounds present : General: No bladder normal to palpation ( tender to palpation) and Yes no CVA tenderness Back/Spine/Pelvis: Back: no CVA tenderness Skin: General skin exam: normal color ( mild paleness) Rashes: no rashes Wounds: no wounds Neuro: General: patient oriented x3 Cranial nerves: Yes Nystagmus not present Speech: normal speech Gait exam (Neuro): gait abnormal Other: patient uses a walker and she is walking slower than normal due to pain Extrem: General: normal to inspection Psych: Mental Status: mental status grossly normal Affect: No normal affect and Anxious affect present Attitude: cooperative Course Vital Signs Vital signs: Vital Signs Temperature 37.2 C 05/23/24 11:35 Pulse Rate 109 H 05/23/24 11:35 Respiratory Rate 20 05/23/24 11:35 Blood Pressure 168/72 H 05/23/24 11:35 Pulse Oximetry 100 05/23/24 11:35 Oxygen Delivery Room Air 05/23/24 11:35 Temperature 37.2 C 05/23/24 11:35 Pulse Rate 110 H 05/23/24 13:08 Respiratory Rate 18 05/23/24 13:08 Blood Pressure 166/78 H 05/23/24 13:08 Pulse Oximetry 97 05/23/24 13:08 Oxygen Delivery Room Air 05/23/24 13:08 MDM - Abdominal Pain MDM Narrative Medical decision making narrative: patient is a 73-year-old female with lower abdominal pain for the past 3 days. We will go ahead and do an abdominal pain workup at this time. Workup was essentially negative. We cannot do a CT scan with dye at this time at this facility so we will transfer to higher level care that can do CT scan abdomen and pelvis with dye and have her return to this facility per protocol. CT scan with dye showed acute appendicitis with some local peritonitis and patient was still at the other facility so I contacted the surgeon to review the case but he did not want to speak on the phone and said he already reviewed the case and will take the patient to the operating room. This is the same facility the patient would be transferred if she came back to this facility. Lab Data Attestation: I reviewed the patient's lab results. 05/23/24 11:56 05/23/24 11:43 Labs: Lab Results 05/23/24 05/23/24 05/23/24 Range/Units 11:43 11:56 14:20 WBC 14.1 H (4.8-10.8) K/mm3 RBC 4.28 (4.20-5.40) M/mm3 Hgb 12.8 (11.7-13.8) g/dL Hct 37.6 (35.0-42.0) % MCV 87.9 (78.0-102.0) fL MCH 29.9 (27.0-31.0) pg MCHC 34.0 (32-36) g/dL RDW 12.7 (11.6-14.4) % Plt Count 268 (150-420) K/mm3 MPV 10.0 (9.2-11.8) fl Immature Gran % (Auto) 0.8 H (0.0-0.0) % Neut % (Auto) 87.0 H (50.0-70.0) % Lymph % (Auto) 6.4 L (18.0-42.0) % [place] % (Auto) 5.6 (2.0-11.0) % Eos % (Auto) 0.1 L (1.0-6.0) % Baso % (Auto) 0.1 (0.0-1.0) % Lymph # (Auto) 0.90 L (1.10-4.50) K/mm3 [place] # (Auto) 0.79 (0.10-0.90) K/mm3 Eos # (Auto) 0.01 L (0.02-0.50) K/mm3 Baso # (Auto) 0.02 (0.00-0.10) K/mm3 Abs Immat Gran (auto) 0.11 H (0.00-0.00) K/mm3 Absolute Neuts (auto) 12.24 H (1.70-7.20) K/mm3 Absolute Nucleated RBC 0.00 (0.00-0.00) K/mm3 Nucleated RBC % 0.0 (0-0.0) % PT 10.3 (9.50-12.1) Seconds INR 0.9 APTT 24.2 (23.9-30.70) Sec Sodium 133 L (136-145) mmol/L Potassium 3.5 (3.5-5.1) mmol/L Chloride 96 L (98-108) mmol/L Carbon Dioxide 26 (21-32) mmol/L Anion Gap 11 (4-12) mmol/L BUN 12 (7-18) mg/dL Creatinine 0.96 (0.55-1.02) mg/dL Estim Creat Clear Calc 45 ml/min Estimated GFR 57 L (59 - ) Glucose 219 H (70-99) mg/dL POC Capillary Glucose 198 H (65-105) mg/dl Calculated Osmolality 282 L (285-295) mOsm/kg Lactic Acid 1.7 (0.4-2.0) mmol/L Calcium 9.1 (8.5-10.1) mg/dL Total Bilirubin 2.0 H (0.00-1.00) mg/dL AST 18 (15-37) U/L ALT 24 (14-59) U/L Alkaline Phosphatase 66 (46-116) U/L Total Protein 7.7 (6.4-8.2) g/dL Albumin 3.8 (3.4-5.0) g/dL Lipase 11 L (16-77) U/L Urine Color Light yellow (Yellow) Urine Appearance Clear (Clear) Urine pH 7.0 (5.0-8.0) Ur Specific [place] 1.015 (1.010-1.020) Urine Protein Trace H (Negative) Urine Glucose (UA) 1+ H (Negative) Urine Ketones 2+ H (Negative) Ur Blood (Man) Trace-intact H (Negative) Urine Nitrate Negative (Negative) Urine Bilirubin Negative (Negative) Urine Urobilinogen 0.2 (0.2-1.0) mg/dL Leukocyte Esterase Rfl Negative (Negative) LIGIA/UL Urine RBC 0-2 (0-2) /hpf Urine WBC None seen (0-3) /hpf Ur Squamous Epith Cells Rare (Few) /hpf Urine Bacteria Rare (None) /hpf Imaging Data Attestation: I personally reviewed and interpreted this imaging study as follows: My impression: CT scan of the abdomen and pelvis with contrast dye shows acute appendicitis with local peritonitis Radiologist's impression: ITS Impressions Abdomen/Pelvis CT 05/23/24 12:56 Impression: No acute abnormality seen. Chronic findings, as above. Discharge Plan Discharge Clinical Impression: Acute appendicitis Qualifiers: Acute appendicitis type: with localized peritonitis Appendicitis gangrene presence: without gangrene Appendicitis perforation presence: without perforation Appendicitis abscess presence: without abscess Qualified Code(s): K35.30 - Acute appendicitis with localized peritonitis, without perforation or gangrene Patient Disposition: Acute Care Hospital Condition: Serious Prescriptions: No Action omeprazole 20 mg capsule,delayed release(DR/EC) 20 mg PO DAILY lorazepam 1 mg tablet 1 mg PO HS PRN (Reason: Anxiety) lovastatin 40 mg tablet 40 mg PO QPM cetirizine 10 mg tablet 10 mg PO DAILY PRN (Reason: Allergy Symptoms) citalopram 20 mg tablet 20 mg PO DAILY insulin aspart U-100 [Novolog FlexPen U-100 Insulin] 100 unit/mL (3 mL) insulin pen 5 unit subcut TID mecobalamin (vitamin B12) [B12 Active] 1,000 mcg tablet,chewable 1,000 mcg PO DAILY cholecalciferol (vitamin D3) 25 mcg (1,000 unit) capsule 25 mcg PO DAILY acetaminophen 500 mg tablet 500 mg PO Q6H PRN (Reason: Pain (Scale Score 1-3)) insulin glargine [Basaglar KwikPen U-100 Insulin] 100 unit/mL (3 mL) insulin pen 40 unit SUBCUT HS carvedilol [Coreg] 25 mg Tablet 25 mg PO Q12HR Qty: 60 0RF furosemide 20 mg Tablet 20 mg PO BID Qty: 60 0RF sodium chloride 1,000 mg tablet,soluble 1,000 mg PO BID Qty: 60 0RF methocarbamol 500 mg tablet 500 mg PO .hs prn Qty: 30 0RF Rx Instructions: Take 1/2 tab the first night then take 1 tab nightly as needed for muscle spasms amlodipine 5 mg tablet 5 mg PO DAILY Qty: 60 0RF tramadol 50 mg tablet 50 mg PO Q6H PRN (Reason: pain) Qty: 15 0RF potassium chloride [K-Tab] 20 mEq tablet extended release 40 meq PO DAILY Qty: 60 0RF Rx Instructions: Take 2 tabs daily for 7 days then 1 tab daily or per PCP magnesium oxide 200 mg magnesium tablet 200 mg PO HS Qty: 7 0RF Follow-up/Referrals: Mary Alice Hope MD [Primary Care Provider] - Time of Disposition: 17:12
[2024-05-23 12:08] LABS: Basophils Absolute Auto 0.02 K/mm3 (0.00-0.10); Basophils Percent Auto 0.1 % (0.0-1.0); Eosinophils Absolute Auto 0.01 K/mm3 (0.02-0.50); Eosinophils Percent Auto 0.1 % (1.0-6.0); Hematocrit 37.6 % (35.0-42.0); Hemoglobin 12.8 g/dL (11.7-13.8); Immature Granulocyte Absolute 0.11 K/mm3 (0.00-0.00); Immature Granulocyte Percent A 0.8 % (0.0-0.0); Lymphocytes Percent Auto 6.4 % (18.0-42.0); Mean Corpuscular Hemoglobin 29.9 pg (27.0-31.0); Mean Corpuscular Volume 87.9 fL (78.0-102.0); Monocytes Absolute Auto 0.79 K/mm3 (0.10-0.90); Monocytes Percent Auto 5.6 % (2.0-11.0); Neutrophils Absolute Auto 12.24 K/mm3 (1.70-7.20); Platelet Count Result 268 K/mm3 (150-420); Red Blood Count 4.28 M/mm3 (4.20-5.40); Red Cell Distribution Width 12.7 % (11.6-14.4); White Blood Count 14.1 K/mm3 (4.8-10.8)
[2024-05-23] MEDS: SODIUM CHLORIDE 0.9% IV 1,000 ML 999 ML IV CONT (12:08)
[2024-05-23] MEDS: fentaNYL CITRATE INJ (*CRX) 100 MCG/2 ML VIAL 50 MCG IV PUSH ×2 (12:10→14:08)
[2024-05-23 12:23] LABS: INR 0.9; Partial Thromboplastin Time 24.2 Sec (23.9-30.70); Prothrombin Time 10.3 Seconds (9.50-12.1)
[2024-05-23 12:24] LABS: Alanine Aminotransferase 24 U/L (14-59); Albumin Level 3.8 g/dL (3.4-5.0); Alkaline Phosphatase 66 U/L (46-116); Aspartate Amino Transferase 18 U/L (15-37); Blood Urea Nitrogen 12 mg/dL (7-18); Calcium 9.1 mg/dL (8.5-10.1); Carbon Dioxide 26 mmol/L (21-32); Estimated CRCL calculation 45 ml/min; Estimated Glomerular Filt Rate 57; Glucose 219 mg/dL (70-99); Lipase 11 U/L (16-77); Total Protein 7.7 g/dL (6.4-8.2)
[2024-05-23 12:29] LABS: Lactic Acid Reflex 1.7 mmol/L (0.4-2.0)
[2024-05-23 12:35] LABS: Anion Gap 11 mmol/L (4-12); Chloride 96 mmol/L (98-108); Osmolality Calculated 282 mOsm/kg (285-295); Potassium 3.5 mmol/L (3.5-5.1); Sodium 133 mmol/L (136-145)
[2024-05-23 12:48] VITALS: BP 178/71; PULSE 87; RESP 18; O2SAT 100
[2024-05-23 12:49] VITALS: O2SAT 96
[2024-05-23 13:00] VITALS: O2SAT 99
[2024-05-23 13:08] VITALS: BP 166/78; PULSE 110; RESP 18; O2SAT 97
--- NOTE | 2024-05-23 13:13 | PC.NURSE ---
multiple attempts to urinate unsuccessful.
[2024-05-23 13:36] LABS: Add Urine Microscopic? YES; Appearance Urine Clear (Clear); Bilirubin Urine Negative (Negative); Blood Urine Trace-intact (Negative); Color Urine Light Yellow (Yellow); Glucose Urine UA 1+ (Negative); Ketones Urine 2+ (Negative); Leukocyte Esterase Ur Negative LEU/UL (Negative); Nitrate Urine Negative (Negative); Protein Urine Trace (Negative); Specific Grav Ur 1.015 (1.010-1.020); Urobilinogen Urine 0.2 mg/dL (0.2-1.0)
[2024-05-23 13:49] LABS: RBC Urine 0-2 /hpf (0-2); Squamous Epithelial Cell Urine Rare /hpf (Few); WBC Urine None seen /hpf (0-3)
[2024-05-23 13:50] LABS: Bacteria Urine Rare /hpf
--- NOTE | 2024-05-23 14:03 | PC.NURSE ---
call and spoke with [facility] brakeman Ramos and notified of pt need for ct with contrast.
--- NOTE | 2024-05-23 14:20 | PC.NURSE ---
call for [facility] to transport pt to [place] for ct scan. awaiting arrival
[2024-05-23 14:23] LABS: Glucose Point of Care 198 mg/dl (65-105)
--- NOTE | 2024-05-23 14:51 | PC.NURSE ---
report to [facility] staff. pt loaded to [facility] cot. departed facility at this time [id number]
--- NOTE | 2024-05-23 16:15 | PC.NURSE ---
spoke with samantha [facility] , pt still not got ct completed. will check it out .
--- NOTE | 2024-05-23 16:55 | PC.NURSE ---
noted reading of ct scan, dr red huang notified
--- NOTE | 2024-05-23 17:44 | PC.NURSE ---
yen bihsop , , notified of pt admitting directly to [facility] and room number provided. voiced understanding.
--- NOTE | 2024-05-25 14:16 | PCDIET ---
preliminary blood cultures x2 reviewed. no growth to date on one and gram + cocci on the other
--- NOTE | 2024-05-27 08:54 | PC.NURSE ---
PRELIMINARY ANAEROBIC BLOOD CULTURE RESULT: STAPHYLOCOCCUS EPIDERMIDIS WITH SENSITIVITY ATTACHED. SPOKE WITH KATINA MENENDEZ AT BLANDING, SHE IS AWARE OF RESULTS.
--- NOTE | 2024-05-29 12:08 | PC.NURSE ---
FINAL BLOOD CULTURE RESULTS X1: NO GROWTH AFTER 5 DAYS.
--- NOTE | 2024-05-30 12:35 | PC.NURSE ---
Final Blood Culture Report: Organism 1 - Staphylococcus epidermidis. Al AMBRIZ already notified of preliminary result.
== END 2024-05-23 17:21 | disposition short-term general hospital (02) ==
PROVIDERS: Emergency Provider Emergency Medicine; PCP Internal Medicine
DX: K35.30 Acute appendicitis with localized peritonitis, without perforation or gangrene (principal); Z79.899 Other long term (current) drug therapy
CPT/HCPCS: 36415; 74176; 74177; 80053; 81001; 82948; 83605; 83690; 85025; 85610; 85730; 87040; 87147; 87181; 96361; 96374; 96375; 99285; J2250; J2270; J3010; J7030; Q9967

== ENCOUNTER 2024-05-23 16:10 | Outpatient (CLI) | payer OTHER, SELFPAY ==
--- NOTE | ~2024-05-23 | CT_ITS ---
EXAMINATION: CT abdomen pelvis w con DATE: 05/23/2024 16:35 INDICATION: Abdominal pain. TECHNIQUE: Computed tomography (CT) of the abdomen and pelvis was performed with 100 mL Omnipaque 350 intravenous contrast. Automated exposure control and iterative reconstruction technique were employe d. The dose-length product was 1130.04 mGy-cm. COMPARISON: CT abdomen and pelvis 05/23/2024, 02/27/24, 06/29/23 FINDINGS: The visualized portions of the lung bases demonstrate mild atelectasis. No pleural effusion . The heart size is normal. No pericardial effusion. There are coronary artery calcifications. Calcif ications in the liver and spleen are consistent with old granulomatous disease. There are changes of cholecystectomy. The pancreas, adrenal glands, and kidneys are normal. There is calcified atheroscler osis of the aorta and many of the other arteries. The bladder is markedly distended. There are calcif ied fibroids in the uterus. A loop of bowel that is likely the appendix is dilated to 13 mm and conta ins appendicoliths (axial image 139). There is a small volume of pelvic ascites with peritoneal thick ening. There is a right hip arthroplasty. There is severe lumbar spondylosis. There is a transverse f racture of L1. IMPRESSION: 1. Acute appendicitis. 2. Small volume of pelvic ascites with peritoneal thickening, likely an exudate. Reviewed, dictated and finalized at location A. IMPRESSION: 1. Acute appendicitis. 2. Small volume of pelvic ascites with peritoneal thickening, likely an exudate .
== END 2024-05-23 16:11 | disposition home or self-care (01) ==
LOC: ANHIMG 16:17
PROVIDERS: PCP Internal Medicine; Visit Provider Emergency Medicine
DX: K35.80 Unspecified acute appendicitis (principal); R18.8 Other ascites; K66.9 Disorder of peritoneum, unspecified
CPT/HCPCS: 74177; Q9967

== ENCOUNTER 2024-05-23 17:23 | Inpatient (IN) | payer MEDICARE, SELFPAY ==
[2024-05-23] VITALS (11 sets, daily range): BP systolic 119–162; BP diastolic 42–72; PULSE 82–102; RESP 16–24; TEMP 36.6–38.1; O2SAT 92–100; BMI 27.7
--- NOTE | 2024-05-23 17:52 | PM.IMHP ---
H&P: HPI History of Present Illness Date/Time: 05/23/24 17:52 Chief Complaint: Acute appendicitis Narrative: patient is a 23-year-old female who has been having lower abdominal pain for the past 3 days. She thought she was constipated. She took some enemas without any results. She finally went to the emergency room and [facility] today and a CT scan of the abdomen pelvis was done here at [facility] since the CT scan was not available at [facility]. [place] [address] which was drawn [facility]. With CT scan showed a 13mm dilated tubular structure without perforation or periappendiceal abscess. There was a appendicoliths noted. The bladder was markedly distended. No free air was seen. This was read as acute appendicitis as per the radiology reading. The patient only had a prior laparoscopic cholecystectomy for abdominal surgery. She has had a right hip replacement the past and back surgery in the past. She is a insulin-dependent diabetic and she does take Percocet for chronic back pain. She denies any history of myocardial infarctions or strokes. She is not on any blood thinners. Review of Systems Review of Systems: The remainder of the review of systems to include constitutional, HEENT, cardiovascular, respiratory, GI, , integumentary, musculoskeletal, endocrine, immunologic, hematologic, psychiatric, and neurologic are all negative except for which is mentioned above in the HPI. [facility] Past Medical History Medical History Lumbar spondylosis Right hip pain Type 2 diabetes mellitus with hyperglycemia Surgical History Surgical History History of back surgery At 23 years old History of brain surgery (04/29/21) History of lumbar laminectomy (~1973) History of lumpectomy of right breast (10/16/01) History of total right hip replacement Social History Social History Smoking status: Never smoker Second hand tobacco smoke exposure: No Alcohol intake: never Substance use: never Substance use type: does not use Do You Feel Safe in your Home?: Yes Lack of Transportation: No Lack of Food: Never True Current Housing: I Have Housing Concerned About Future Housing: No Difficulty Paying Gas/Electric Bills: No Difficulty Paying for Meds: No Currently Unemployed: No Education: High School Diploma/GED Difficulty w/ Childcare or Family Care: No Spiritual care concerns: No Meds Home Medications and Allergies Home Medications Medication Instructions Recorded Confirmed Type acetaminophen 500 mg tablet 500 mg PO Q6H PRN Pain (Scale 08/24/22 05/23/24 History Score 1-3) cetirizine 10 mg tablet 10 mg PO DAILY PRN Allergy Symptoms 08/24/22 05/23/24 History cholecalciferol (vitamin D3) 25 25 mcg PO DAILY 08/24/22 05/23/24 History mcg (1,000 unit) capsule citalopram 20 mg tablet 20 mg PO DAILY 08/24/22 05/23/24 History insulin aspart U-100 100 unit/mL 5 unit subcut TID 08/24/22 05/23/24 History (3 mL) subcutaneous pen (Novolog FlexPen U-100 Insulin aspart) lorazepam 1 mg tablet 1 mg PO HS PRN Anxiety 08/24/22 05/23/24 History lovastatin 40 mg tablet 40 mg PO QPM 08/24/22 05/23/24 History mecobalamin (vitamin B12) 1,000 1,000 mcg PO DAILY 08/24/22 05/23/24 History mcg chewable tablet (B12 Active) omeprazole 20 mg capsule,delayed 20 mg PO DAILY 08/24/22 05/23/24 History release insulin glargine 100 unit/mL (3 40 unit subcut HS 03/15/24 05/23/24 History mL) subcutaneous pen (Basaglar KwikPen U-100 Insulin) amlodipine 5 mg tablet 5 mg PO DAILY #60 tabs 03/19/24 05/23/24 Rx carvedilol 25 mg tablet (Coreg) 25 mg PO Q12HR #60 tabs 03/19/24 05/23/24 Rx methocarbamol 500 mg tablet 500 mg PO .hs prn muscle spasm #30 03/19/24 05/23/24 Rx tabs tramadol 50 mg
--- NOTE | 2024-05-23 18:08 | ADMGEN ---
This patient, Minna Jarquin, was admitted to Medical Room 244-. Patient/family oriented to hospital policies and general routines including ID bracelet, bed and alarms, visiting hours, pain management, procedures, bathroom and other care routines, personal items, smoking policy, room service/diet, and visiting hours. Information on how to activate the Rapid Response Team has been discussed. Patient/Family are encouraged to report perceived risks to care and to ask questions if they do not understand what they are told or what they should do.
--- NOTE | 2024-05-23 18:20 | PC.NURSE ---
pt to surgery via bed
--- NOTE | 2024-05-23 18:28 | WPDANESEPPF ---
Anes - Initial Pre Proc Eval Procedure: Operation Date: 05/23/24 18:30 Proposed Procedures p Laparoscopic Appendectomy - Rodri Ferrer MD Date/Time: 05/23/24 18:28 Surgeon: Rodri Ferrer MD Pre Op Diagnosis: AC APPNDICITIS Patient Data Age: 73 Gender: F Height: Weight: Allergies Allergy/AdvReac Type Severity Reaction Status Date / Time hydrocodone [From Vicodin] Allergy Nausea Verified 03/14/24 15:28 Sulfa (Sulfonamide Allergy Hives Verified 03/14/24 15:28 Antibiotics) semaglutide AdvReac Abdominal Verified 03/14/24 15:28 Pain Home Medications Medication Instructions Recorded Confirmed Type acetaminophen 500 mg tablet 500 mg PO Q6H PRN Pain (Scale 08/24/22 05/23/24 History Score 1-3) cetirizine 10 mg tablet 10 mg PO DAILY PRN Allergy Symptoms 08/24/22 05/23/24 History cholecalciferol (vitamin D3) 25 25 mcg PO DAILY 08/24/22 05/23/24 History mcg (1,000 unit) capsule citalopram 20 mg tablet 20 mg PO DAILY 08/24/22 05/23/24 History insulin aspart U-100 100 unit/mL 5 unit subcut TID 08/24/22 05/23/24 History (3 mL) subcutaneous pen (Novolog FlexPen U-100 Insulin aspart) lorazepam 1 mg tablet 1 mg PO HS PRN Anxiety 08/24/22 05/23/24 History lovastatin 40 mg tablet 40 mg PO QPM 08/24/22 05/23/24 History mecobalamin (vitamin B12) 1,000 1,000 mcg PO DAILY 08/24/22 05/23/24 History mcg chewable tablet (B12 Active) omeprazole 20 mg capsule,delayed 20 mg PO DAILY 08/24/22 05/23/24 History release insulin glargine 100 unit/mL (3 40 unit subcut HS 03/15/24 05/23/24 History mL) subcutaneous pen (Basaglar KwikPen U-100 Insulin) amlodipine 5 mg tablet 5 mg PO DAILY #60 tabs 03/19/24 05/23/24 Rx carvedilol 25 mg tablet (Coreg) 25 mg PO Q12HR #60 tabs 03/19/24 05/23/24 Rx methocarbamol 500 mg tablet 500 mg PO .hs prn muscle spasm #30 03/19/24 05/23/24 Rx tabs tramadol 50 mg tablet 50 mg PO Q6H PRN pain #15 tabs 03/19/24 05/23/24 Rx fentanyl 25 mcg/hr transdermal 25 mcg transdermal USEASDIRECTD 05/23/24 05/23/24 History patch losartan 100 mg tablet 100 mg PO DAILY 05/23/24 05/23/24 History tizanidine 4 mg tablet 4 mg PO PRN PRN Back Pain 05/23/24 05/23/24 History Patient hx anesthesia problems: none Family hx anesthesia problems: post op nausea/vomiting Results Review: All pre-operative results and documents have been reviewed as part of the pre-operative evaluation. [facility] Past Medical History Medical History Lumbar spondylosis Right hip pain Type 2 diabetes mellitus with hyperglycemia Surgical History Surgical History History of back surgery At 23 years old History of brain surgery (04/29/21) History of lumbar laminectomy (~1973) History of lumpectomy of right breast (10/16/01) History of total right hip replacement Social History Social History Smoking status: Never smoker Second hand tobacco smoke exposure: No Alcohol intake: never Substance use: never Substance use type: does not use Do You Feel Safe in your Home?: Yes Lack of Transportation: No Lack of Food: Never True Current Housing: I Have Housing Concerned About Future Housing: No Difficulty Paying Gas/Electric Bills: No Difficulty Paying for Meds: No Currently Unemployed: No Education: High School Diploma/GED Difficulty w/ Childcare or Family Care: No Spiritual care concerns: No Anes - Eval Final PreProcedure Day of Procedure 05/23/24 18:28 Patient weight: overweight Heart: regular rate and rhythm Lungs: clear to auscultation Airway: Mallampati scale class III Neurological: alert and oriented Last oral intake: >/= 8 hours ASA classification: III Emergent: yes Anesthetic plan: proceed Anesthesia type and monitoring: general ETT and standard monitoring Results Review: All pre-
[2024-05-23] MEDS: PIPERACILLN/TAZ 3.375GM/NS50ML 3.375 GM/50 ML BAG IVPB ×2 (19:00→23:31)
[2024-05-23] MEDS: BUPivacaine HCL 0.5% PF 30 ML VIAL INFILTRATE (19:03)
[2024-05-23] MEDS: LIDO 1%/EPINEPHRINE 1:100,000 20 ML VIAL 30 ML INFILTRATE (19:04)
[2024-05-23] MEDS: LACTATED RINGERS 1,000 ML 30 ML IV CONT (19:45)
[2024-05-23 19:55] LABS: Glucose Point of Care 180 mg/dl (65-105)
--- NOTE | 2024-05-23 20:00 | W.PM.PROC2 ---
Procedure Note - Detailed Date of Procedure 05/23/24 Pre-op Diagnosis ACUTE APPENDICITIS Post-op Diagnosis Same Procedure Performed Laparoscopic appendectomy Surgeon Rodri Ferrer MD Melter Assistant MATT De Leon Anesthesia General Indications Patient is a 73-year-old female who has been having lower abdominal pain for [address] scan abdomen pelvis showed a acutely inflamed appendix without obvious perforation. No periappendiceal abscess was seen. White blood count elevated 14,000. She presents now for emergent laparoscopic appendectomy. Findings The patient acutely inflamed appendix which was gangrenous in its distal 1/2. The base of appendix appeared to be normal without inflammation. There was obvious evidence of perforation of the appendix or periappendiceal abscess. There is no pelvic abscess. Description of Procedure After informed consent was obtained patient brought to the operating room she was placed supine position and general endotracheal anesthesia was administered. A Reyes catheter was then placed decompress the bladder. The abdomen was then prepped draped usual sterile fashion. A time-out was then performed to correctly identify the patient and the procedure to be performed. She was given scheduled IV antibiotics. I then entered the abdomen left upper quadrant utilizing a 5mm Optiview port. Once inside the abdomen insufflated to adequate pneumoperitoneum of 15mmHg of CO2. Looking down into the lower abdomen I then placed a 12mm periumbilical trocar port as well as a 5mm suprapubic trocar port and a 5mm right lower quadrant trocar port. The appendix was seen in the right lower quadrant adherent to the right side of the pelvic sidewall. The distal 1/2 of the appendix was gangrenous but not perforated. There was cloudy fluid in the pelvis but no pelvic abscess. The base of the appendix was spared from any inflammation. Utilizing laparoscopic graspers I was able to elevate the appendix identified the base. I then made a defect through the mesoappendix utilizing a [place] dissected and then used a 45mm Endo-DELFINA stapler to divide the appendix at the base flush with the cecum. A vascular reload to the Endo-DELFINA stapler was then used to divide the mesoappendix. The appendix was then placed into an Endo-Catch bag and brought out through the periumbilical trocar port site. It was sent to pathology for examination. I then irrigated out the right lower quadrant the abdomen the pelvis with copious sterile saline solution. I kept irrigating until the fluid I aspirated was clear. I then removed all the trocar ports under visualization all port sites appeared hemostatic. I then allowed the abdomen decompressed. The 12mm periumbilical trocar port fascial defect was then closed utilizing 0 Vicryl suture at the fascial level. The skin edges in all the port sites were then approximated utilizing a running subcuticular 4-0 Monocryl suture. Incisions were then cleaned and then skin glue was applied. The patient tolerated the procedure well no complications. All sponges, needles, and instrument counts were correct at the end procedure. EBL was _10__cc. The patient was awakened and taken to recovery in stable and satisfactory condition. Implants None Estimated Blood Loss 10 Drains No Packing No Pathology Yes (Appendix to pathology) Complications No immediate complications Condition Stable Disposition PACU [facility] Billing Surgery - Charge Forward: Surgery Billing
--- NOTE | 2024-05-23 20:01 | SUR.PHASEI ---
Patient's wedding rings placed back on left ring finger in PACU.
--- NOTE | 2024-05-23 21:38 | PC.NURSE ---
Assumed care for patient. Returned from surgery via bed with 2L NC.
[2024-05-24] VITALS (7 sets, daily range): BP systolic 133–134; BP diastolic 53–83; PULSE 70–79; RESP 14–20; TEMP 36.2–36.9; O2SAT 90–98
[2024-05-24 05:19] LABS: Basophils Percent Auto 0.1 % (0.2-1.2); Hematocrit 35.3 % (37.0-47.0); Hemoglobin 11.7 g/dL (12.0-15.0); Immature Granulocyte Percent A 0.7 % (0-0.5); Lymphocytes Absolute Auto 0.79 K/mm3 (0.9-3.2); Lymphocytes Percent Auto 5.6 % (18.3-44.2); Mean Corpuscular HGB Conc 33.1 g/dl (32-36); Mean Corpuscular Hemoglobin 30.3 pg (26-34); Mean Corpuscular Volume 91.5 fl (80-100); Mean Platelet Volume 10.7 fl (7.4-10.4); Monocytes Absolute Auto 0.6 K/mm3 (0.1-0.6); Monocytes Percent Auto 4.1 % (2.6-8.5); Neutrophils Absolute Auto 12.5 K/mm3 (1.3-6.7); Neutrophils Percent Auto 89.5 % (45.5-73.1); Platelet Count Result 237 k/mm3 (150-375); Red Blood Count 3.86 M/mm3 (4.2-5.4); Red Cell Distribution Width 12.9 % (11.5-14.5)
[2024-05-24] MEDS: PIPERACILLN/TAZ 3.375GM/NS50ML 3.375 GM/50 ML BAG IVPB ×3 (05:26→18:00)
[2024-05-24] MEDS: oxyCODONE HCL (*CRX) 5 MG TAB IR 10 MG PO ×3 (05:27→18:00)
[2024-05-24 05:33] LABS: Anion Gap 9 mmol/L (4-12); Blood Urea Nitrogen 13 mg/dL (7-17); Calcium 8.6 mg/dL (8.4-10.2); Carbon Dioxide 27 mmol/L (22-30); Chloride 101 mmol/L (98-107); Estimated CRCL calculation 68 ml/min; Estimated Glomerular Filt Rate > 60; Glucose 227 mg/dL (65-110); Potassium 3.7 mmol/L (3.4-5.0); Sodium 137 mmol/L (137-145)
[2024-05-24 07:52] LABS: Glucose Point of Care 237 mg/dl (65-105)
[2024-05-24] MEDS: INSULIN ASPART (*BKC) 100 UNITS/ML SUB-Q ×2 (09:00→12:24)
[2024-05-24] MEDS: ENOXAPARIN 40 MG/0.4 ML SYRINGE SUB-Q (09:01)
[2024-05-24 11:49] LABS: Glucose Point of Care 257 mg/dl (65-105)
[2024-05-24] MEDS: SODIUM CHLORIDE 0.9% IV 1,000 ML 100 ML IV CONT (12:28)
[2024-05-24] MEDS: PANTOPRAZOLE 40 MG TABLET PO (12:29)
--- NOTE | 2024-05-24 12:49 | WPDANESPN ---
Anes - Prog Note Post-Op Date/Time: 05/24/24 12:49 Cardiovascular status: normal Respiratory status: normal Airway patency: baseline Mental status: baseline Post-Op hydration status: normal Vital Signs: Last Vital Signs Temp 36.2 C L 05/24/24 05:35 Pulse 79 05/24/24 05:35 Resp 20 05/24/24 05:35 BP 134/53 L 05/24/24 05:35 Pulse Ox 90 05/24/24 08:22 O2 Del Method Room Air 05/24/24 08:22 O2 Flow Rate 2 05/23/24 20:51 FiO2 21 05/24/24 08:22 Pain Score (VAS): 10/27 I/O: Intake & Output 05/23/24 05/24/24 05/24/24 23:59 07:59 15:59 Intake Total 250 600 480 Output Total 200 Balance 250 400 480 Laboratory Tests 05/24/24 04:48 05/24/24 04:48 05/23/24 05/24/24 05/24/24 19:53 04:48 07:48 WBC 14.0 H RBC 3.86 L Hgb 11.7 L Hct 35.3 L MCV 91.5 MCH 30.3 MCHC 33.1 RDW 12.9 Plt Count 237 MPV 10.7 H Immature Gran % (Auto) 0.7 H Neut % (Auto) 89.5 H Lymph % (Auto) 5.6 L Nuckolls % (Auto) 4.1 Eos % (Auto) 0.0 Baso % (Auto) 0.1 L Lymph # (Auto) 0.79 L [place]oll[place] # (Auto) 0.6 Eos # (Auto) 0.0 Baso # (Auto) 0.0 Abs Immat Gran (auto) 0.10 H Absolute Neuts (auto) 12.5 H Absolute Nucleated RBC 0.000 Nucleated RBC % 0.0 Sodium 137 Potassium 3.7 Chloride 101 Carbon Dioxide 27 Anion Gap 9 BUN 13 D Creatinine 0.70 Estim Creat Clear Calc 68 Estimated GFR > 60 Glucose 227 H POC Capillary Glucose 180 H 237 H Calcium 8.6 05/24/24 11:40 WBC RBC Hgb Hct MCV MCH MCHC RDW Plt Count MPV Immature Gran % (Auto) Neut % (Auto) Lymph % (Auto) N[place]olls % (Auto) Eos % (Auto) Baso % (Auto) Lymph # (Auto) [place]olls # (Auto) Eos # (Auto) Baso # (Auto) Abs Immat Gran (auto) Absolute Neuts (auto) Absolute Nucleated RBC Nucleated RBC % Sodium Potassium Chloride Carbon Dioxide Anion Gap BUN Creatinine Estim Creat Clear Calc Estimated GFR Glucose POC Capillary Glucose 257 H Calcium Post-procedural complaints: none Patient Feedback: Patient satisfied with anesthetic care.
--- NOTE | 2024-05-24 13:14 | PM.IMCN ---
Assessment and Plan Assessment and plan (1) Appendicitis: Qualifiers: Acute appendicitis type: with generalized peritonitis Appendicitis abscess presence: without abscess Appendicitis gangrene presence: with gangrene Appendicitis perforation presence: without perforation Appendicitis type: acute appendicitis Qualified Code(s): K35.200 - Acute appendicitis with generalized peritonitis, without perforation or abscess; K35.891 - Other acute appendicitis without perforation, with gangrene Code(s): K37 - Unspecified appendicitis Status: Acute Assessment and Plan: - CT abd/pelvis () 1. Acute appendicitis. 2. Small volume of pelvic ascites with peritoneal thickening, likely an exudate. - OR for laparoscopic appendectomy on 05/23/2024 for acute gangrenous appendicitis without abscess or perforation - started on Zosyn on 05/23/2024 - analgesics and antipyretics p.r.n., home pain medications held. resume when appropriate. - bowel regimen: Docusate scheduled and MiraLax p.r.n. (2) Insulin dependent diabetes mellitus: Status: Chronic Assessment and Plan: - hypoglycemia protocol - POC blood glucose ACHS - home medication: Hold Fiasp U-100 5u TID (NF). Diabetic diet resumed, will resume Lantus 40 units HS. - correct regimen ordered - moderate dose TIDWM, based off TDD - A1C ordered (3) Hypertension: Qualifiers: Hypertension type: primary hypertension Qualified Code(s): I10 - Essential (primary) hypertension Code(s): I10 - Essential (primary) hypertension Status: Chronic Assessment and Plan: - chronic, currently 134/53 - continue home medications: Amlodipine 5 mg daily, losartan 100 mg daily, Coreg 25 mg b.i.d. - monitor Plan Diet: Diabetic GI Prophylaxis: Pantoprazole p.o. DVT Prophylaxis: Lovenox Lines: Peripheral Code Status: Full code HPI Date of Consult Consult date: 05/24/24 Requesting Physician: Rodri Ferrer MD Primary Care Provider: Mary Alice Hope MD Consult Narrative Reason for consult: Management of insulin dependent diabetes, HTN, chronic medical conditions. Narrative: 73 y/o F presented here with abdominal pain with PMH of DM, HTN, HLD, anxiety/depression, and right breast cancer (s/p lumpectomy, 2002). The patient presented to [place] ED on 05/23 with 3 days of fever and on day 4 she developed abdominal pain. She reports the abdominal pain was diffuse, bilateral, severe, nonradiating, constant, aggravated by urination and movement, and no alleviating factors. Max T at home, 100.4? F. Pain is accompanied by nausea/dry heaving, chills, and constipation. Last bowel movement was 3 days ago prior to arrival to ED yesterday, was able to pass a small bowel movement yesterday that was liquidy and had mucus, normal color. She was on opiates for chronic back pain with impending surgery and typically goes once daily but small amount. Initial evaluation revealed a white count of 14.[address] showed acute appendicitis with small volume of pelvic ascites with peritoneal thickening, likely an exudate. Patient arrived to [facility] on 05/23/2024 and underwent a emergent laparoscopic appendectomy with Nabil DENT. Currently reporting improved pain and resolution of dry heaving but still having very mild nasuea postoperatively. Initial VS today: 100.5? F, HR 102, RR 24, 162/72, and 100% on RA. VS improved: HR 79, afebrile, and RR 20. Review of Systems Review of Systems: All systems reviewed & are unremarkable except as noted in HPI and below PMFSH Past Medical History Medical History Anxiety and depression Breast cancer, right GERD (gastroesophageal reflux disease) HLD (hyperlipidemia) Hypertension Lumbar spondylosis Type 2 diabetes mellitus with hyperglycemia Surgical History Surgical History H
[2024-05-24] MEDS: CYANOCOBALAMIN 1,000 MCG TABLET 1000 MCG PO (15:34)
[2024-05-24] MEDS: amLODIPine BESYLATE 5 MG TABLET PO (15:34)
[2024-05-24] MEDS: CITALOPRAM HYDROBROMIDE 20 MG TABLET PO (15:34)
[2024-05-24] MEDS: LOSARTAN POTASSIUM 100 MG TABLET PO (15:34)
[2024-05-24] MEDS: CHOLECALCIFEROL 1,000 UNITS TABLET 1000 UNITS PO (15:34)
[2024-05-24 17:29] LABS: Glucose Point of Care 188 mg/dl (65-105)
[2024-05-24] MEDS: LOVASTATIN 20 MG TABLET 40 MG PO (17:59)
[2024-05-24] MEDS: carvediloL 25 MG TABLET PO (21:12)
[2024-05-24] MEDS: LORazepam (*CRX) 1 MG TABLET PO (21:13)
[2024-05-24] MEDS: LORATADINE 10 MG TABLET PO (21:13)
[2024-05-24] MEDS: INSULIN GLARGINE (*BKC) 100 UNITS/ML 40 UNITS SUB-Q (21:13)
[2024-05-24] MEDS: DOCUSATE SODIUM 100 MG CAPSULE PO (21:13)
[2024-05-24 21:29] LABS: Glucose Point of Care 243 mg/dl (65-105)
[2024-05-25] VITALS (11 sets, daily range): BP systolic 121–143; BP diastolic 49–92; PULSE 65–88; RESP 16; TEMP 36.3–36.9; O2SAT 88–100
[2024-05-25] MEDS: oxyCODONE HCL (*CRX) 5 MG TAB IR 10 MG PO ×4 (00:13→23:39)
[2024-05-25] MEDS: PIPERACILLN/TAZ 3.375GM/NS50ML 3.375 GM/50 ML BAG IVPB ×5 (00:13→23:27)
[2024-05-25] MEDS: SODIUM CHLORIDE 0.9% IV 1,000 ML 100 ML IV CONT ×2 (00:15→16:42)
[2024-05-25 05:05] LABS: Basophils Percent Auto 0.1 % (0.2-1.2); Eosinophils Percent Auto 0.1 % (0-4.4); Hemoglobin 10.1 g/dL (12.0-15.0); Immature Granulocyte Absolute 0.05 K/mm3 (0.00-0.031); Immature Granulocyte Percent A 0.5 % (0-0.5); Lymphocytes Absolute Auto 1.28 K/mm3 (0.9-3.2); Lymphocytes Percent Auto 12.5 % (18.3-44.2); Mean Corpuscular HGB Conc 33.7 g/dl (32-36); Mean Corpuscular Hemoglobin 30.9 pg (26-34); Mean Corpuscular Volume 91.7 fl (80-100); Mean Platelet Volume 11.1 fl (7.4-10.4); Monocytes Absolute Auto 0.8 K/mm3 (0.1-0.6); Neutrophils Absolute Auto 8.1 K/mm3 (1.3-6.7); Neutrophils Percent Auto 78.8 % (45.5-73.1); Platelet Count Result 226 k/mm3 (150-375); Red Blood Count 3.27 M/mm3 (4.2-5.4); Red Cell Distribution Width 12.9 % (11.5-14.5); White Blood Count 10.2 K/mm3 (4.5-10.0)
[2024-05-25 05:19] LABS: Alanine Aminotransferase 29 U/L (6-35); Albumin Level 3.5 g/dL (3.5-5.1); Alkaline Phosphatase 54 U/L (38-126); Anion Gap 7 mmol/L (4-12); Aspartate Amino Transferase 27 U/L (14-36); Bilirubin,Total 1.3 mg/dL (0.2-1.3); Blood Urea Nitrogen 22 mg/dL (7-17); Calcium 8.4 mg/dL (8.4-10.2); Carbon Dioxide 26 mmol/L (22-30); Chloride 101 mmol/L (98-107); Estimated CRCL calculation 60 ml/min; Estimated Glomerular Filt Rate > 60; Glucose 173 mg/dL (65-110); Potassium 3.5 mmol/L (3.4-5.0); Sodium 134 mmol/L (137-145)
[2024-05-25 05:40] LABS: Hemoglobin A1C 6.8 % (<5.7)
--- NOTE | 2024-05-25 06:55 | PM.IMPN ---
Progress Note: A&P Assessment and Plan (1) Appendicitis: Qualifiers: Acute appendicitis type: with generalized peritonitis Appendicitis abscess presence: without abscess Appendicitis gangrene presence: with gangrene Appendicitis perforation presence: without perforation Appendicitis type: acute appendicitis Qualified Code(s): K35.200 - Acute appendicitis with generalized peritonitis, without perforation or abscess; K35.891 - Other acute appendicitis without perforation, with gangrene Code(s): K37 - Unspecified appendicitis Status: Acute Assessment and Plan: - CT abd/pelvis () 1. Acute appendicitis. 2. Small volume of pelvic ascites with peritoneal thickening, likely an exudate. - OR for laparoscopic appendectomy on 05/23/2024 for acute gangrenous appendicitis without abscess or perforation - WBC 14.0, subjective fever and chills. - started on Zosyn on 05/23/2024 - analgesics and antipyretics p.r.n., home pain medications held. resume when appropriate. - bowel regimen: Docusate scheduled and MiraLax p.r.n. - Blood culture is growing gram positive cocci in clusters from anaerobic bottle only. Added Vancomycin. Repeating blood cultures in 24 hours. (2) Insulin dependent diabetes mellitus: Status: Chronic Assessment and Plan: - hypoglycemia protocol - POC blood glucose ACHS - diabetic diet - home medication: Hold Fiasp U-100 5u TID (NF) - resume Lantus 40 units HS. - correct regimen ordered - moderate dose TIDWM, based off TDD - A1C 6.8% (3) Hypertension: Qualifiers: Hypertension type: primary hypertension Qualified Code(s): I10 - Essential (primary) hypertension Code(s): I10 - Essential (primary) hypertension Status: Chronic Assessment and Plan: - chronic, currently 134/53 - continue home medications: Amlodipine 5 mg daily, losartan 100 mg daily, Coreg 25 mg b.i.d. - monitor Plan Diet: Diabetic GI Prophylaxis: Pantoprazole p.o. DVT Prophylaxis: Lovenox Lines: Peripheral Code Status: Full code Subjective Date/time seen: 05/25/24 06:55 Interval history: No acute events overnight. She is sitting on the edge of the bed and just finished her breakfast. She was able to tolerated toast and milk without nausea or vomiting. She has intermittent gas pains to her lower abdomen. She says she is passing gas but no bowel movement. She remains on 2 L NC. Review of Systems Review of Systems: All systems reviewed & are unremarkable except as noted in HPI and below Exam Narrative: General: appears comfortable, in no acute distress Respiratory: breathing is unlabored with even chest rise/fall, lungs are clear without wheezing, rhonchi, and crackles Cardiovascular: Rate and rhythm regular, normal s1s2, no murmur Abdomen: Soft, round, moderate tenderness, hypoactive bowel sounds. Extremities: No cyanosis, edema, clubbing. Pulses 2/2 Neuro: A&O x 4 Skin: Warm, dry, intact. Lap sites x 4 with dermabond are clean, dry, and intact. Objective Data Vital Signs Vital Signs: Vital Signs - 24 hr 05/24/24 08:22 05/24/24 08:00 05/24/24 14:00 Temperature 98.4 F Pulse Rate 73 Respiratory Rate 14 Blood Pressure 133/62 Pulse Oximetry 90 93 Oxygen Delivery Room Air Room Air Fraction of Inspired Oxygen 21 05/24/24 21:12 05/24/24 21:47 05/24/24 20:00 Temperature 97.8 F Pulse Rate 70 71 71 Respiratory Rate 18 18 Blood Pressure 133/62 Pulse Oximetry 94 94 Oxygen Delivery Room Air Fraction of Inspired Oxygen 21 05/25/24 06:00 Temperature 97.4 F L Pulse Rate 68 Respiratory Rate 16 Blood Pressure 127/49 L Pulse Oximetry 95 Oxygen Delivery Fraction of Inspired Oxygen Intake/Output Intake/Output: Intake & Output 05/22/24 05/23/24 05/24/24 05/25/24 23:59 23:59 23:59 23:59 Intake Total 250 2670 500 Output Total 200 Balance 250 2470 500 Meds/Results Medications: Ac
[2024-05-25 07:52] LABS: Glucose Point of Care 145 mg/dl (65-105)
[2024-05-25] MEDS: amLODIPine BESYLATE 5 MG TABLET PO (08:11)
[2024-05-25] MEDS: LOSARTAN POTASSIUM 100 MG TABLET PO (08:12)
[2024-05-25] MEDS: carvediloL 25 MG TABLET PO ×2 (08:12→20:27)
[2024-05-25] MEDS: CITALOPRAM HYDROBROMIDE 20 MG TABLET PO (08:12)
[2024-05-25] MEDS: DOCUSATE SODIUM 100 MG CAPSULE PO ×2 (08:13→20:28)
[2024-05-25] MEDS: PANTOPRAZOLE 40 MG TABLET PO (08:13)
[2024-05-25] MEDS: CYANOCOBALAMIN 1,000 MCG TABLET 1000 MCG PO (08:14)
[2024-05-25] MEDS: CHOLECALCIFEROL 1,000 UNITS TABLET 1000 UNITS PO (08:14)
[2024-05-25] MEDS: ENOXAPARIN 40 MG/0.4 ML SYRINGE SUB-Q (08:15)
[2024-05-25] MEDS: VANCOMYCIN 2,000 MG/NS 500 ML BAG 250 MG IVPB (08:16)
[2024-05-25 11:16] LABS: Procalcitonin 3.5 ng/mL
--- NOTE | 2024-05-25 11:37 | WPDPN ---
Progress Note: A&P Assessment and Plan (1) Appendicitis: Qualifiers: Appendicitis type: acute appendicitis Acute appendicitis type: with generalized peritonitis Appendicitis gangrene presence: with gangrene Appendicitis perforation presence: without perforation Appendicitis abscess presence: without abscess Qualified Code(s): K35.200 - Acute appendicitis with generalized peritonitis, without perforation or abscess; K35.891 - Other acute appendicitis without perforation, with gangrene Code(s): K37 - Unspecified appendicitis Status: Acute Assessment and Plan: Postoperative day number 2 after laparoscopic appendectomy for gangrenous appendicitis. She seems to be improving now. White blood count is dropping. No fever. Pain is improving as well. She is getting up with therapy and she will need to be able to ambulate better before discharge. Continue IV antibiotics for today. Diet as tolerated. Will need to wean her off of her nasal cannula oxygen to room air. Continue supportive management. Subjective Date/time seen: 05/25/24 11:37 Interval history: Patient looks better today. States she has less abdominal pain. No fever. White blood cell count is down to 12,000 today. No bowel movement yet. She is tolerating some some solid food. Still on 2L of oxygen by nasal cannula. Exam GI: Other: Abdomen is soft and nondistended. Less tenderness in the right lower quadrant around her incisions. No generalized peritoneal signs. Objective Data Vital Signs Vital Signs: Vital Signs - 24 hr 05/24/24 14:00 05/24/24 21:12 05/24/24 21:47 Temperature 36.9 C 36.6 C Pulse Rate 73 70 71 Respiratory Rate 14 18 Blood Pressure 133/62 133/62 Pulse Oximetry 93 94 Oxygen Delivery Oxygen Flow Rate Fraction of Inspired Oxygen 05/24/24 20:00 05/25/24 06:00 05/25/24 08:09 Temperature 36.3 C L 36.9 C Pulse Rate 71 68 65 Respiratory Rate 18 16 16 Blood Pressure 127/49 L 129/92 H Pulse Oximetry 94 95 88 L Oxygen Delivery Room Air Oxygen Flow Rate Fraction of Inspired Oxygen 05/25/24 08:12 05/25/24 08:24 05/25/24 07:30 Temperature Pulse Rate 65 Respiratory Rate Blood Pressure Pulse Oximetry 92 93 Oxygen Delivery Room Air Oxygen Flow Rate Fraction of Inspired Oxygen 05/25/24 08:05 Temperature Pulse Rate Respiratory Rate Blood Pressure Pulse Oximetry 95 Oxygen Delivery Nasal Cannula Oxygen Flow Rate 2 Fraction of Inspired Oxygen Intake/Output Intake/Output: Intake & Output 05/22/24 05/23/24 05/24/24 05/25/24 23:59 23:59 23:59 23:59 Intake Total 250 2670 1360 Output Total 200 Balance 250 2470 1360 Meds/Results Medications: Active Medications Generic Name Dose Route Start Last Admin Trade Name Freq PRN Reason Stop Dose Admin Acetaminophen 1,000 mg 05/23/24 20:48 Acetaminophen 500 Mg Tablet PO Q6H PRN Mild Pain (1-3) or Fever Amlodipine Besylate 5 mg 05/24/24 13:50 05/25/24 08:11 Amlodipine Besylate 5 Mg Tablet PO 5 mg DAILY SHORTY Administration Carvedilol 25 mg 05/24/24 21:00 05/25/24 08:12 Carvedilol 25 Mg Tablet PO 25 mg Q12HR SHORTY Administration Citalopram Hydrobromide 20 mg 05/24/24 13:45 05/25/24 08:12 Citalopram Hydrobromide 20 Mg Tablet PO 20 mg DAILY SHORTY Administration Cyanocobalamin 1,000 mcg 05/24/24 13:45 05/25/24 08:14 Cyanocobalamin 1,000 Mcg Tablet PO 1,000 mcg DAILY SHORTY Administration Dextrose 12.5 gm 05/23/24 19:49 Dextrose 50% 25 Gm/50 Ml Syringe IV PUSH PRN PRN Hypoglycemia Protocol Docusate Sodium 100 mg 05/24/24 21:00 05/25/24 08:13 Docusate Sodium 100 Mg Capsule PO 100 mg Q12HR SHORTY Administration Enoxaparin Sodium 40 mg 05/24/24 09:00 05/25/24 08:15 Enoxaparin 40 Mg/0.4 Ml Syringe SUB-Q 40 mg DAILY SHORTY Administration Glucagon 1 mg 05/23/24 19:49 Glucagon For Inj 1 Mg Via
[2024-05-25 11:43] LABS: CRP 18.8 mg/dL (<1.0)
[2024-05-25 12:14] LABS: Glucose Point of Care 138 mg/dl (65-105)
[2024-05-25 17:04] LABS: Glucose Point of Care 146 mg/dl (65-105)
[2024-05-25] MEDS: LOVASTATIN 20 MG TABLET 40 MG PO (18:07)
[2024-05-25] MEDS: LORATADINE 10 MG TABLET PO (20:27)
[2024-05-25] MEDS: LORazepam (*CRX) 1 MG TABLET PO (20:28)
[2024-05-25] MEDS: INSULIN GLARGINE (*BKC) 100 UNITS/ML 40 UNITS SUB-Q (20:34)
[2024-05-25 21:56] LABS: Glucose Point of Care 142 mg/dl (65-105)
[2024-05-26] MEDS: TIZANIDINE HCL 4 MG TABLET PO (00:05)
[2024-05-26] MEDS: VANCOMYCIN 1,250 MG/NS 250 ML 1,250 MG/250 ML BAG 166.67 MG IVPB (02:03)
[2024-05-26] MEDS: SODIUM CHLORIDE 0.9% IV 1,000 ML 100 ML IV CONT ×2 (02:06→17:44)
[2024-05-26] MEDS: PIPERACILLN/TAZ 3.375GM/NS50ML 3.375 GM/50 ML BAG IVPB (05:16)
[2024-05-26] MEDS: oxyCODONE HCL (*CRX) 5 MG TAB IR 10 MG PO ×3 (05:18→18:42)
[2024-05-26 05:25] VITALS: BP 142/56; PULSE 77; RESP 16; TEMP 36.6; O2SAT 92
[2024-05-26 06:26] LABS: Basophils Percent Auto 0.3 % (0.2-1.2); Eosinophils Absolute Auto 0.1 K/mm3 (0-0.3); Eosinophils Percent Auto 0.7 % (0-4.4); Hematocrit 30.3 % (37.0-47.0); Immature Granulocyte Absolute 0.06 K/mm3 (0.00-0.031); Immature Granulocyte Percent A 0.7 % (0-0.5); Mean Corpuscular Hemoglobin 30.4 pg (26-34); Mean Corpuscular Volume 92.1 fl (80-100); Mean Platelet Volume 11.1 fl (7.4-10.4); Monocytes Absolute Auto 0.8 K/mm3 (0.1-0.6); Monocytes Percent Auto 8.6 % (2.6-8.5); Neutrophils Absolute Auto 6.3 K/mm3 (1.3-6.7); Neutrophils Percent Auto 70.7 % (45.5-73.1); Platelet Count Result 253 k/mm3 (150-375); Red Blood Count 3.29 M/mm3 (4.2-5.4); Red Cell Distribution Width 12.8 % (11.5-14.5); White Blood Count 8.9 K/mm3 (4.5-10.0)
[2024-05-26 06:42] LABS: Alanine Aminotransferase 25 U/L (6-35); Albumin Level 3.4 g/dL (3.5-5.1); Alkaline Phosphatase 53 U/L (38-126); Anion Gap 6 mmol/L (4-12); Aspartate Amino Transferase 24 U/L (14-36); Bilirubin,Total 1.1 mg/dL (0.2-1.3); Blood Urea Nitrogen 14 mg/dL (7-17); Calcium 8.3 mg/dL (8.4-10.2); Carbon Dioxide 28 mmol/L (22-30); Chloride 104 mmol/L (98-107); Estimated CRCL calculation 60 ml/min; Estimated Glomerular Filt Rate > 60; Glucose 88 mg/dL (65-110); Magnesium 1.7 mg/dL (1.6-2.3); Potassium 2.9 mmol/L (3.4-5.0); Sodium 138 mmol/L (137-145)
[2024-05-26 07:05] LABS: Procalcitonin 1.8 ng/mL
--- NOTE | 2024-05-26 07:18 | PM.IMPN ---
Progress Note: A&P Assessment and Plan (1) Appendicitis: Qualifiers: Acute appendicitis type: with generalized peritonitis Appendicitis abscess presence: without abscess Appendicitis gangrene presence: with gangrene Appendicitis perforation presence: without perforation Appendicitis type: acute appendicitis Qualified Code(s): K35.200 - Acute appendicitis with generalized peritonitis, without perforation or abscess; K35.891 - Other acute appendicitis without perforation, with gangrene Code(s): K37 - Unspecified appendicitis Status: Acute Assessment and Plan: - CT abd/pelvis () 1. Acute appendicitis. 2. Small volume of pelvic ascites with peritoneal thickening, likely an exudate. - OR for laparoscopic appendectomy on 05/23/2024 for acute gangrenous appendicitis without abscess or perforation - WBC 14.0, subjective fever and chills. - WBC is down trending 14.1-->14.0-->10.2-->8.9 - Procalcitonin 3.5-->1.8 - CRP 18.8 - started on Zosyn on 05/23/2024 - analgesics and antipyretics p.r.n., home pain medications held. resume when appropriate. - bowel regimen: Docusate scheduled and MiraLax p.r.n. - Blood culture is growing gram positive cocci in clusters from anaerobic bottle only. Added Vancomycin. Repeating blood cultures in 24 hours. - Suspect contamination with blood cultures. Stopped Vancomycin. De-escalated Zosyn to Levaquin and Flagyl. (2) Insulin dependent diabetes mellitus: Status: Chronic Assessment and Plan: - hypoglycemia protocol - POC blood glucose ACHS - diabetic diet - home medication: Hold Fiasp U-100 5u TID (NF) - resume Lantus 40 units HS. - correct regimen ordered - moderate dose TIDWM, based off TDD - A1C 6.8% (3) Hypertension: Qualifiers: Hypertension type: primary hypertension Qualified Code(s): I10 - Essential (primary) hypertension Code(s): I10 - Essential (primary) hypertension Status: Chronic Assessment and Plan: - chronic, currently 134/53 - continue home medications: Amlodipine 5 mg daily, losartan 100 mg daily, Coreg 25 mg b.i.d. - monitor Plan Iron deficiency on labs. Hemoglobin 10.0 g/dl. TIBC 226, Iron 31, saturation 14%. Would recommend iron supplementation. Diet: Diabetic GI Prophylaxis: Pantoprazole p.o. DVT Prophylaxis: Lovenox Lines: Peripheral Code Status: Full code Subjective Date/time seen: 05/26/24 07:18 Interval history: Blood cultures growing staph epidermis, suspect contamination. No acute events overnight. Review of Systems Review of Systems: All systems reviewed & are unremarkable except as noted in HPI and below Exam Narrative: General: appears comfortable, in no acute distress Respiratory: breathing is unlabored with even chest rise/fall, lungs are clear without wheezing, rhonchi, and crackles Cardiovascular: Rate and rhythm regular, normal s1s2, no murmur Abdomen: Soft, round, moderate tenderness, hypoactive bowel sounds. Extremities: No cyanosis, edema, clubbing. Pulses 2/2 Neuro: A&O x 4 Skin: Warm, dry, intact. Lap sites x 4 with dermabond are clean, dry, and intact. Objective Data Vital Signs Vital Signs: Vital Signs - 24 hr 05/25/24 08:09 05/25/24 08:12 05/25/24 08:24 Temperature 98.5 F Pulse Rate 65 65 Respiratory Rate 16 Blood Pressure 129/92 H Pulse Oximetry 88 L 92 Oxygen Delivery Oxygen Flow Rate Fraction of Inspired Oxygen 05/25/24 07:30 05/25/24 08:05 05/25/24 14:00 Temperature 98.4 F Pulse Rate 71 Respiratory Rate 16 Blood Pressure 121/52 L Pulse Oximetry 93 95 96 Oxygen Delivery Room Air Nasal Cannula Oxygen Flow Rate 2 Fraction of Inspired Oxygen 21 05/25/24 20:27 05/25/24 20:43 05/25/24 20:30 Temperature 97.9 F Pulse Rate 88 75 Respiratory Rate 16 Blood Pressure 143/54 H Pulse Oximetry 95 100 Oxygen Delivery Nasal Cannula Oxygen Flow Rate 2 Fraction
[2024-05-26 07:43] LABS: Iron 31 ug/dL (37-170)
[2024-05-26 07:53] LABS: Percent Iron Saturation 14 % (20-50)
[2024-05-26 08:12] LABS: Glucose Point of Care 84 mg/dl (65-105)
[2024-05-26 08:18] VITALS: PULSE 78
[2024-05-26] MEDS: DOCUSATE SODIUM 100 MG CAPSULE PO ×2 (08:18→20:46)
[2024-05-26] MEDS: CYANOCOBALAMIN 1,000 MCG TABLET 1000 MCG PO (08:18)
[2024-05-26] MEDS: carvediloL 25 MG TABLET PO ×2 (08:18→20:46)
[2024-05-26] MEDS: PANTOPRAZOLE 40 MG TABLET PO (08:18)
[2024-05-26] MEDS: POTASSIUM CHLORIDE 20 MEQ ER TABLET 40 MEQ PO (08:18)
[2024-05-26] MEDS: amLODIPine BESYLATE 5 MG TABLET PO (08:18)
[2024-05-26] MEDS: CHOLECALCIFEROL 1,000 UNITS TABLET 1000 UNITS PO (08:18)
[2024-05-26] MEDS: LOSARTAN POTASSIUM 100 MG TABLET PO (08:18)
[2024-05-26] MEDS: CITALOPRAM HYDROBROMIDE 20 MG TABLET PO (08:18)
[2024-05-26] MEDS: POTASSIUM CHLORIDE INJ 40 MEQ in SODIUM CHLORIDE 0.9% IV 500 ML 130 MEQ IVPB (08:19)
[2024-05-26] MEDS: ENOXAPARIN 40 MG/0.4 ML SYRINGE SUB-Q (08:19)
[2024-05-26 08:20] VITALS: BP 158/59; PULSE 78; O2SAT 96
[2024-05-26 11:44] LABS: Glucose Point of Care 82 mg/dl (65-105)
[2024-05-26] MEDS: levoFLOXacin 750 MG TABLET PO (12:29)
[2024-05-26] MEDS: metroNIDAZOLE 500 MG TABLET PO ×2 (13:33→20:45)
[2024-05-26 14:00] VITALS: BP 141/56; PULSE 87; RESP 16; TEMP 36.4; O2SAT 95
[2024-05-26 15:15] VITALS: BMI 27.7
[2024-05-26 17:16] LABS: Glucose Point of Care 64 mg/dl (65-105)
[2024-05-26] MEDS: LOVASTATIN 20 MG TABLET 40 MG PO (17:44)
[2024-05-26] MEDS: GLUCOSE ORAL GEL 15 GM OF GLUCSE IN 37.5 GM TUBE PO (17:44)
[2024-05-26 18:17] LABS: Glucose Point of Care 115 mg/dl (65-105)
[2024-05-26] MEDS: DEXTROSE 5%/0.9% SOD CHL 1,000 ML 50 ML IV CONT (18:42)
--- NOTE | 2024-05-26 19:39 | PM.PNGS ---
Progress Note: A&P Assessment and Plan (1) Appendicitis: Qualifiers: Appendicitis type: acute appendicitis Acute appendicitis type: with generalized peritonitis Appendicitis gangrene presence: with gangrene Appendicitis perforation presence: without perforation Appendicitis abscess presence: without abscess Qualified Code(s): K35.200 - Acute appendicitis with generalized peritonitis, without perforation or abscess; K35.891 - Other acute appendicitis without perforation, with gangrene Code(s): K37 - Unspecified appendicitis Status: Acute Assessment and Plan: Postop day 3 after laparoscopic appendectomy for gangrenous appendicitis. She is slowly improving. WBC normalized and she is afebrile. Bowel function has returned. She is still has a poor appetite and is not eating much today. We discussed trying to drink some supplements if she is not eating much, and Glucerna was added to her diet today. Potassium was low and being replaced by the Hospitalist. Okay to transition to oral antibiotics at this point. PT evaluated the patient and felt she was stable for discharge home with no further therapy needs. Encouraged her to start increasing her activity daily and ambulate at least twice today. Repeat labs again tomorrow. Possibly discharge home tomorrow if she continues to improve. Plan I have discussed the patient's case and plan of care with Dr. Ferrer. Subjective Subjective Date/Time Seen: 05/26/24 19:39 Post Op day: 3 (Laparoscopic appendectomy) Patient reports: afebrile Interval history: This is a 73-year-old who underwent a laparoscopic appendectomy with findings of a gangrenous appendix. She is postop day 3. WBC normal today and she is afebrile. Her diet has been advanced, but she reports poor appetite. She feels more fatigued and letheragic today. She is alert while talking to me and able to hold a full conversation. She has not been up walking today because of her generalized malaise. She reports some incisional soreness with movement and getting out of bed, but reports her abdominal pain is much better than when she came into the hospital. She is passing flatus and had a large formed BM today. No nausea or vomiting. Due to her poor appetite, she refused lunch and has not been drinking much. She also reports she feels like she is urinating less today and is not sure if she is completely emptying her bladder. Review of Systems Review of Systems: All systems reviewed & are unremarkable except as noted in HPI and below Exam Const: General: comfortable and no acute distress Orientation/consciousness: patient oriented x3 GI: Auscultation: normal bowel sounds Other: Abdomen is soft and nondistended. Incisions are dry with glue intact and no erythema. She has mild tenderness in the RLQ and at her incisions. No generalized peritoneal signs. Extrem: General: no pedal edema and no calf tenderness Objective Data Vital Signs Vital Signs: Vital Signs - 24 hr 05/25/24 20:27 05/25/24 20:43 05/25/24 20:30 Temperature 97.9 F Pulse Rate 88 75 Respiratory Rate 16 Blood Pressure 143/54 H Pulse Oximetry 95 100 Oxygen Delivery Nasal Cannula Oxygen Flow Rate 2 05/25/24 20:35 05/26/24 05:25 05/26/24 08:18 Temperature 97.8 F Pulse Rate 77 78 Respiratory Rate 16 Blood Pressure 142/56 H Pulse Oximetry 95 92 Oxygen Delivery Room Air Oxygen Flow Rate 05/26/24 08:20 05/26/24 11:08 05/26/24 08:00 Temperature Pulse Rate 78 Respiratory Rate Blood Pressure 158/59 H Pulse Oximetry 96 Oxygen Delivery Room Air Room Air Oxygen Flow Rate 05/26/24 14:00 Temperature 97.5 F L Pulse Rate 87 Respiratory Rate 16 Blood Pressure 141/56 H Pulse Oximetry 95 Oxygen Delivery Oxygen Flow Rate Intake/Output Intake/Output: Intake & Output 05/23/24 05/24/24 05/25/24 05/26/24 23:59 23:59 23:59 23:59 Intake Total 250 2670 2690 2780 Output Total 656 660 2811
[2024-05-26 20:46] VITALS: PULSE 88
[2024-05-26] MEDS: LORATADINE 10 MG TABLET PO (20:46)
[2024-05-26] MEDS: LORazepam (*CRX) 1 MG TABLET PO (20:46)
[2024-05-26 20:49] VITALS: BP 166/79; PULSE 87; RESP 16; TEMP 36.8; O2SAT 96
[2024-05-26 20:55] LABS: Glucose Point of Care 168 mg/dl (65-105)
[2024-05-27 05:10] VITALS: BP 181/67; PULSE 82; RESP 20; TEMP 36.6; O2SAT 94
[2024-05-27 06:11] LABS: Basophils Percent Auto 0.3 % (0.2-1.2); Eosinophils Absolute Auto 0.1 K/mm3 (0-0.3); Eosinophils Percent Auto 0.8 % (0-4.4); Hematocrit 30.7 % (37.0-47.0); Hemoglobin 10.3 g/dL (12.0-15.0); Immature Granulocyte Absolute 0.07 K/mm3 (0.00-0.031); Immature Granulocyte Percent A 0.8 % (0-0.5); Lymphocytes Absolute Auto 1.81 K/mm3 (0.9-3.2); Lymphocytes Percent Auto 19.8 % (18.3-44.2); Mean Corpuscular HGB Conc 33.6 g/dl (32-36); Mean Corpuscular Hemoglobin 30.3 pg (26-34); Mean Corpuscular Volume 90.3 fl (80-100); Monocytes Absolute Auto 0.9 K/mm3 (0.1-0.6); Monocytes Percent Auto 10.1 % (2.6-8.5); Neutrophils Absolute Auto 6.2 K/mm3 (1.3-6.7); Neutrophils Percent Auto 68.2 % (45.5-73.1); Platelet Count Result 268 k/mm3 (150-375); Red Cell Distribution Width 12.6 % (11.5-14.5); White Blood Count 9.1 K/mm3 (4.5-10.0)
[2024-05-27] MEDS: oxyCODONE HCL (*CRX) 5 MG TAB IR 10 MG PO (06:17)
[2024-05-27] MEDS: metroNIDAZOLE 500 MG TABLET PO ×3 (06:17→20:42)
[2024-05-27 06:25] LABS: Alanine Aminotransferase 23 U/L (6-35); Albumin Level 3.3 g/dL (3.5-5.1); Alkaline Phosphatase 57 U/L (38-126); Anion Gap 5 mmol/L (4-12); Aspartate Amino Transferase 24 U/L (14-36); Bilirubin,Total 1.1 mg/dL (0.2-1.3); Blood Urea Nitrogen 7 mg/dL (7-17); Calcium 8.6 mg/dL (8.4-10.2); Carbon Dioxide 29 mmol/L (22-30); Chloride 101 mmol/L (98-107); Estimated CRCL calculation 68 ml/min; Estimated Glomerular Filt Rate > 60; Glucose 151 mg/dL (65-110); Sodium 135 mmol/L (137-145)
[2024-05-27 07:00] LABS: Atypical Lymphocytes Present; Platelet Estimate Adequate (Adequate); Schistocytes None Seen
--- NOTE | 2024-05-27 08:09 | PM.IMPN ---
Progress Note: A&P Assessment and Plan (1) Appendicitis: Qualifiers: Appendicitis type: acute appendicitis Acute appendicitis type: with generalized peritonitis Appendicitis gangrene presence: with gangrene Appendicitis perforation presence: without perforation Appendicitis abscess presence: without abscess Qualified Code(s): K35.200 - Acute appendicitis with generalized peritonitis, without perforation or abscess; K35.891 - Other acute appendicitis without perforation, with gangrene Code(s): K37 - Unspecified appendicitis Status: Acute Assessment and Plan: - CT abd/pelvis () 1. Acute appendicitis. 2. Small volume of pelvic ascites with peritoneal thickening, likely an exudate. - OR for laparoscopic appendectomy on 05/23/2024 for acute gangrenous appendicitis without abscess or perforation - WBC 14.0, subjective fever and chills. - WBC is down trending 14.1-->14.0-->10.2-->8.9 - Procalcitonin 3.5-->1.8 - CRP 18.8 - started on Zosyn on 05/23/2024 - analgesics and antipyretics p.r.n., home pain medications held. resume when appropriate. - bowel regimen: Docusate scheduled and MiraLax p.r.n. - Blood culture is growing gram positive cocci in clusters from anaerobic bottle only. Added Vancomycin. Repeating blood cultures in 24 hours. - Suspect contamination with blood cultures. Stopped Vancomycin. De-escalated Zosyn to Levaquin and Flagyl - Poor oral intake yesterday. Blood glucose was 88 and then 64 prior to dinner. Started on D5NS at 50 ml per hour - K+ persistently low. K 3.0 today. Will give Potassium chloride 40 meq PO once and add K+ to her fluids. (2) Insulin dependent diabetes mellitus: Status: Chronic Assessment and Plan: - hypoglycemia protocol - POC blood glucose ACHS - diabetic diet - home medication: Hold Fiasp U-100 5u TID (NF) - resume Lantus 40 units HS. - correct regimen ordered - moderate dose TIDWM, based off TDD - A1C 6.8% - On D5NS due to poor intake. Evening Lantus was decreased (3) Hypertension: Qualifiers: Hypertension type: primary hypertension Qualified Code(s): I10 - Essential (primary) hypertension Code(s): I10 - Essential (primary) hypertension Status: Chronic Assessment and Plan: - chronic, currently 134/53 - continue home medications: Amlodipine 5 mg daily, losartan 100 mg daily, Coreg 25 mg b.i.d. - monitor Plan Iron deficiency on labs. Hemoglobin 10.0 g/dl. TIBC 226, Iron 31, saturation 14%. Would recommend iron supplementation. Diet: Diabetic GI Prophylaxis: Pantoprazole p.o. DVT Prophylaxis: Lovenox Lines: Peripheral Code Status: Full code Subjective Date/time seen: 05/27/24 08:09 Review of Systems Review of Systems: All systems reviewed & are unremarkable except as noted in HPI and below Exam Narrative: General: appears comfortable, in no acute distress Respiratory: breathing is unlabored with even chest rise/fall, lungs are clear without wheezing, rhonchi, and crackles Cardiovascular: Rate and rhythm regular, normal s1s2, no murmur Abdomen: Soft, round, moderate tenderness, hypoactive bowel sounds. Extremities: No cyanosis, edema, clubbing. Pulses 2/2 Neuro: A&O x 4 Skin: Warm, dry, intact. Lap sites x 4 with dermabond are clean, dry, and intact. Objective Data Vital Signs Vital Signs: Vital Signs - 24 hr 05/26/24 08:18 05/26/24 08:20 05/26/24 11:08 Temperature Pulse Rate 78 78 Respiratory Rate Blood Pressure 158/59 H Pulse Oximetry 96 Oxygen Delivery Room Air 05/26/24 14:00 05/26/24 20:49 05/26/24 20:46 Temperature 97.5 F L 98.3 F Pulse Rate 87 87 88 Respiratory Rate 16 16 Blood Pressure 141/56 H 166/79 H Pulse Oximetry 95 96 Oxygen Delivery 05/26/24 20:00 05/27/24 05:10 Temperature 97.9 F Pulse Rate 82 Respiratory Rate 20 Blood Pressure 181/67 H Pulse Oximetry 94 Oxygen Delivery Room Air Inta
[2024-05-27 08:19] LABS: Glucose Point of Care 161 mg/dl (65-105)
[2024-05-27 08:41] VITALS: PULSE 82
[2024-05-27] MEDS: carvediloL 25 MG TABLET PO ×2 (08:41→20:41)
[2024-05-27] MEDS: amLODIPine BESYLATE 5 MG TABLET PO (08:41)
[2024-05-27] MEDS: POTASSIUM CHLORIDE 20 MEQ ER TABLET 40 MEQ PO ×2 (08:41→17:21)
[2024-05-27] MEDS: CHOLECALCIFEROL 1,000 UNITS TABLET 1000 UNITS PO (08:41)
[2024-05-27] MEDS: LOSARTAN POTASSIUM 100 MG TABLET PO (08:41)
[2024-05-27] MEDS: PANTOPRAZOLE 40 MG TABLET PO (08:41)
[2024-05-27] MEDS: CITALOPRAM HYDROBROMIDE 20 MG TABLET PO (08:41)
[2024-05-27] MEDS: levoFLOXacin 750 MG TABLET PO (08:41)
[2024-05-27] MEDS: CYANOCOBALAMIN 1,000 MCG TABLET 1000 MCG PO (08:41)
[2024-05-27] MEDS: ENOXAPARIN 40 MG/0.4 ML SYRINGE SUB-Q (08:42)
[2024-05-27] MEDS: KCL 40 MEQ/D5/0.9% SOD CHL 1,000 ML 50 ML IV CONT (08:42)
[2024-05-27 11:46] LABS: Glucose Point of Care 248 mg/dl (65-105)
[2024-05-27] MEDS: INSULIN ASPART (*BKC) 100 UNITS/ML SUB-Q (12:27)
[2024-05-27 14:00] VITALS: BP 153/64; PULSE 83; RESP 20; TEMP 36.4; O2SAT 99
[2024-05-27 17:08] LABS: Glucose Point of Care 168 mg/dl (65-105)
[2024-05-27] MEDS: LOVASTATIN 20 MG TABLET 40 MG PO (17:21)
[2024-05-27 20:18] VITALS: BP 167/55; PULSE 89; RESP 16; TEMP 36.3; O2SAT 98
[2024-05-27 20:34] LABS: Glucose Point of Care 176 mg/dl (65-105)
[2024-05-27] MEDS: LORATADINE 10 MG TABLET PO (20:40)
[2024-05-27] MEDS: TIZANIDINE HCL 4 MG TABLET PO (20:40)
[2024-05-27] MEDS: LORazepam (*CRX) 1 MG TABLET PO (20:40)
[2024-05-27 20:41] VITALS: PULSE 89
[2024-05-27] MEDS: INSULIN GLARGINE (*BKC) 100 UNITS/ML 20 UNITS SUB-Q (20:43)
[2024-05-28] MEDS: TIZANIDINE HCL 4 MG TABLET PO ×2 (03:12→09:59)
[2024-05-28] MEDS: metroNIDAZOLE 500 MG TABLET PO (05:10)
[2024-05-28 05:35] VITALS: BP 154/77; PULSE 77; RESP 20; TEMP 36.2; O2SAT 96
[2024-05-28 06:06] LABS: Basophils Percent Auto 0.3 % (0.2-1.2); Eosinophils Absolute Auto 0.1 K/mm3 (0-0.3); Eosinophils Percent Auto 1.1 % (0-4.4); Hemoglobin 10.1 g/dL (12.0-15.0); Immature Granulocyte Absolute 0.11 K/mm3 (0.00-0.031); Immature Granulocyte Percent A 1.2 % (0-0.5); Lymphocytes Absolute Auto 2.24 K/mm3 (0.9-3.2); Lymphocytes Percent Auto 24.3 % (18.3-44.2); Mean Corpuscular HGB Conc 33.7 g/dl (32-36); Mean Corpuscular Hemoglobin 30.1 pg (26-34); Mean Corpuscular Volume 89.3 fl (80-100); Mean Platelet Volume 10.9 fl (7.4-10.4); Monocytes Absolute Auto 0.8 K/mm3 (0.1-0.6); Neutrophils Absolute Auto 5.9 K/mm3 (1.3-6.7); Neutrophils Percent Auto 64.1 % (45.5-73.1); Platelet Count Result 287 k/mm3 (150-375); Red Blood Count 3.36 M/mm3 (4.2-5.4); Red Cell Distribution Width 12.5 % (11.5-14.5); White Blood Count 9.2 K/mm3 (4.5-10.0)
[2024-05-28 06:16] LABS: Alanine Aminotransferase 22 U/L (6-35); Albumin Level 3.4 g/dL (3.5-5.1); Alkaline Phosphatase 47 U/L (38-126); Anion Gap 5 mmol/L (4-12); Aspartate Amino Transferase 26 U/L (14-36); Bilirubin,Total 0.9 mg/dL (0.2-1.3); Blood Urea Nitrogen 7 mg/dL (7-17); Calcium 8.8 mg/dL (8.4-10.2); Carbon Dioxide 30 mmol/L (22-30); Chloride 99 mmol/L (98-107); Estimated CRCL calculation 68 ml/min; Estimated Glomerular Filt Rate > 60; Glucose 150 mg/dL (65-110); Potassium 3.3 mmol/L (3.4-5.0); Sodium 134 mmol/L (137-145)
[2024-05-28 07:03] LABS: Platelet Estimate Adequate (Adequate)
[2024-05-28 07:04] LABS: Atypical Lymphocytes Present; Schistocytes None Seen
[2024-05-28 07:56] LABS: Glucose Point of Care 145 mg/dl (65-105)
[2024-05-28] MEDS: levoFLOXacin 750 MG TABLET PO (09:49)
[2024-05-28] MEDS: CITALOPRAM HYDROBROMIDE 20 MG TABLET PO (09:50)
[2024-05-28] MEDS: LOSARTAN POTASSIUM 100 MG TABLET PO (09:50)
[2024-05-28] MEDS: amLODIPine BESYLATE 5 MG TABLET PO (09:50)
[2024-05-28] MEDS: PANTOPRAZOLE 40 MG TABLET PO (09:50)
[2024-05-28] MEDS: CYANOCOBALAMIN 1,000 MCG TABLET 1000 MCG PO (09:50)
[2024-05-28] MEDS: CHOLECALCIFEROL 1,000 UNITS TABLET 1000 UNITS PO (09:50)
[2024-05-28 09:51] VITALS: PULSE 85
[2024-05-28] MEDS: carvediloL 25 MG TABLET PO (09:51)
[2024-05-28] MEDS: ENOXAPARIN 40 MG/0.4 ML SYRINGE SUB-Q (09:52)
[2024-05-28] MEDS: POTASSIUM CHLORIDE 20 MEQ ER TABLET 40 MEQ PO (09:54)
--- NOTE | 2024-05-28 11:36 | PM.DS ---
DS: Admitting Diagnosis Discharge Date 05/28/24 Admitting Diagnosis Abdominal pain DS: Discharge Diagnosis Discharge Diagnosis (1) Appendicitis: Qualifiers: Acute appendicitis type: with generalized peritonitis Appendicitis abscess presence: without abscess Appendicitis gangrene presence: with gangrene Appendicitis perforation presence: without perforation Appendicitis type: acute appendicitis Qualified Code(s): K35.200 - Acute appendicitis with generalized peritonitis, without perforation or abscess; K35.891 - Other acute appendicitis without perforation, with gangrene Code(s): K37 - Unspecified appendicitis Status: Acute (2) Hypertension: Qualifiers: Hypertension type: primary hypertension Qualified Code(s): I10 - Essential (primary) hypertension Code(s): I10 - Essential (primary) hypertension Status: Chronic (3) Insulin dependent diabetes mellitus: Status: Chronic (4) Hypokalemia: Code(s): E87.6 - Hypokalemia Status: Acute DS: Summary Hospital Course Hospital Course: CT/ Abdomen Pelvis on 05/23/24 showed: 1. Acute appendicitis. 2. Small volume of pelvic ascites with peritoneal thickening, likely an exudate. - OR for laparoscopic appendectomy on 05/23/2024 for acute gangrenous appendicitis without abscess or perforation Patient received IV Zosyn and Vancomycin, patient later transitioned to Levaquin and Flagyl. - Patient received potassium supplementation for low potassium. - Patient was having lower blood sugars due to decreased intake, Lantus decreased to 20 units at bedtime. Patient will need to adjust and discuss with PCP dosing as she increases oral intake at home. Status at Discharge Functional status at discharge: uses cane/walker Overall status at discharge: patient is progressing back to baseline Time Spent with Patient Time attestation: Total time spent providing and/or coordinating discharge services: Time spent: Greater than 30 minutes Exam Const: General: no acute distress Eyes: Sclera: sclerae normal Resp: Effort & Inspection: normal respiratory effort Auscultation: clear to auscultation bilaterally Cardio: Rate: regular rate Rhythm: regular rhythm GI: GI Palp: Yes Soft to palpation Auscultation: normal bowel sounds Other: Last BM 05/28/24. Skin: General skin exam: no rashes or lesions noted Other: Warm, dry, intact. Lap sites x 4 with dermabond are clean, dry, and intact. Extrem: General: normal to inspection DS: Data Data Completed and Pending Completed studies during hospitalization: Pending at discharge 05/23/24 19:22 Surgical [PTH] Routine Labs on day of discharge: Labs from last 24 hours 05/28/24 05/28/24 05/27/24 07:54 05:38 20:12 WBC 9.2 RBC 3.36 L Hgb 10.1 L Hct 30.0 L MCV 89.3 MCH 30.1 MCHC 33.7 RDW 12.5 Plt Count 287 MPV 10.9 H Immature Gran % (Auto) 1.2 H Neut % (Auto) 64.1 Lymph % (Auto) 24.3 Meigs % (Auto) 9.0 H Eos % (Auto) 1.1 Baso % (Auto) 0.3 Lymph # (Auto) 2.24 Meigs # (Auto) 0.8 H Eos # (Auto) 0.1 Baso # (Auto) 0.0 Abs Immat Gran (auto) 0.11 H Absolute Neuts (auto) 5.9 Absolute Nucleated RBC 0.000 Nucleated RBC % 0.0 Atypical Lymphocytes Present Platelet Estimate Adequate Schistocytes None seen Sodium 134 L Potassium 3.3 L Chloride 99 Carbon Dioxide 30 Anion Gap 5 BUN 7 Creatinine 0.70 Estim Creat Clear Calc 68 Estimated GFR > 60 Glucose 150 H POC Capillary Glucose 145 H 176 H Calcium 8.8 Total Bilirubin 0.9 AST 26 ALT 22 Alkaline Phosphatase 47 Total Protein 7.0 Albumin 3.4 L 05/27/24 05/27/24 17:03 11:44 WBC RBC Hgb Hct MCV MCH MCHC RDW Plt Count MPV Immature Gran % (Auto) Neut % (Auto) Lymph % (Auto) Meigs % (Auto) Eos % (Auto) Baso % (Auto) Lymph # (Aut
[2024-05-28 11:45] LABS: Glucose Point of Care 201 mg/dl (65-105)
[2024-05-28] MEDS: INSULIN ASPART (*BKC) 100 UNITS/ML SUB-Q (11:53)
[2024-05-28] MEDS: INFLUENZA VACCINE HIGH DOSE (>64) 180 MCG/0.5 ML SYRINGE IM (12:04)
== END 2024-05-28 12:30 | disposition home or self-care (01) | DRG 399 ==
PROVIDERS: Nurse Practitioner Acute Care; Student in an Organized Health Care Education/Training Program; Admitting Provider Surgery; PCP Internal Medicine; Visit Provider Nurse Practitioner Family
PROC: 0DTJ4ZZ Resection of Appendix, Percutaneous Endoscopic Approach (ICD-10-PCS; CPT 44970; principal; 2024-05-23 18:30)
DX: K35.200 Acute appendicitis with generalized peritonitis, without perforation or abscess (principal); E87.6 Hypokalemia; E11.9 Type 2 diabetes mellitus without complications; M47.816 Spondylosis without myelopathy or radiculopathy, lumbar region; G89.29 Other chronic pain; Z96.641 Presence of right artificial hip joint; Z23 Encounter for immunization; Z79.4 Long term (current) use of insulin
CPT/HCPCS: 36415; 80048; 80053; 82948; 83036; 83540; 83550; 83735; 84145; 85025; 86140; 87040; 88304; 90471; 90662; 97161; 97165; 97535; A9270; G0008; G0378; G0379; J1100; J1596; J1650; J1815; J2004; J2405; J2543; J2704; J2710; J3370; J3480; J7030; J7040; J7042; J7120

== ENCOUNTER 2024-12-02 00:18 | Day surgery (SDC) | payer MEDICARE, SELFPAY ==
[2024-09-22 12:09] VITALS: BMI 27.6
--- NOTE | 2024-11-21 14:52 | PC.NURSE ---
Called and spoke with patient regarding rescheduled procedure. Updated patient with new date and time. Patient denies any changes to medications, allergies, and health history. Patient does not have any questions at this time.
--- OUTSIDE RECORDS SUMMARY | 2024-12-02 00:24 | XMS_ITS | Clinical Summary ---
Author Organization [facility] Address [address] [place] [address] Care Team Providers Care Soda Drier Feeder Name Role Phone Mary Alice Hope MD Primary Care Provider [phone] Allergies Active Allergy Reactions Criticality Noted Date Comments Atorvastatin Myalgias Medium 06/01/2022 Lisinopril Cough 10/23/2022 Sulfa Antibiotics Rash,Throat swelling High 11/10/19 20 Hydrocodone-Acetaminophen Rash Low 11/10/2019 Medications NOVOLOG FLEXPEN 100 UNIT/ML injection (PEN) Inject 5 Units into the skin see administration instructions. 5 units with breakfast, 5 units with lunch, and 10 untis with supper Additional 5 units with late night snack 0 Active lovastatin 40 MG tablet Take 1 tablet (40 mg total) by mouth nightly at bedtime. 0 Active vitamin D3, cholecalcifero l, 1000 UNIT Tab tablet Take 1 tablet (1,000 Units total) by mouth daily. Active acetaminophen (TYLENOL) 500 MG tablet Take 2 tablets (1,000 mg total) by mouth every 6 (six) hours as needed. Active citalopram (CELEXA) 20 MG tablet Take 1 tablet (20 mg total) by mouth daily. 3 Active Continuous Blood Gluc Sensor (FREESTYLE MAT 14 DAY SENSOR) [facility] [place] CHECK GLUCOSE LEVEL EVERY 3-4 HOURS 3 Active BASAGLAR KWIKPEN 100 UNIT/ML injection (PEN) Inject 40 Units into the skin nightly at bedtime. 3 Active LORazepam (ATIVAN) 1 MG tablet TAKE 1 TABLET (1MG) BY MOUTH AT BEDTIME NEEDED 3 Active omeprazole (PRILOSEC) 20 MG capsule Take 1 capsule (20 mg total) by mouth daily. 3 Active Cetirizine HCl (ZYRTEC ALLERGY) 10 MG Cap Take 10 mg by mouth daily. Active vitamin B-12 (CYANOCOBALAMI N) 1000 MCG tablet Take 1 tablet (1,000 mcg total) by mouth daily. Active losartan (COZAAR) 100 MG tablet Take 1 tablet (100 mg total) by mouth daily. 3 Active gabapentin (NEURONTIN) 300 MG capsule Take 1 capsule (300 mg total) by mouth 3 (three) times daily. 3 Active B-D UF III MINI PEN NEEDLES 31G X 5 MM Misc USE WITH INSULIN FIVE TIMES DAILY 3 Active carvedilol (COREG) 25 MG tablet Take 1 tablet (25 mg total) by mouth 2 (two) times daily with meals. 3 Active multi vitamin/minera ls (THERA-M ENHANCED) tablet Take 1 tablet by mouth daily. Active Active Problems Problem Noted Date Diagnosed Date Aftercare following right hip joint replacement surgery 12/01/2022 Status post total replacement of right hip 10/24 Primary osteoarthritis of right hip 09/27/2022 Overview (09/27/2022): Added automatically from request for surgery [id number] Rupture of right proximal biceps tendon, initial encounter 08/05/2020 Family History Medical History Relation Comments Diabetes Brother 1 No Known Problems Brother 2 No Known Problems Brother 3 Arthritis Father CHF Father Diabetes Father Diabetes Maternal Grandfather Diabetes Maternal Grandmother Diabetes Mother Diabetes Paternal Grandfather Diabetes Paternal Grandmother Diabetes Sister 1 No Known Problems Sister 2 Relation Status Comments Brother 1 Alive Brother 2 Alive Brother 3 Alive Father Maternal Grandfather Maternal Grandmother Mother Paternal Grandfather Paternal Grandmother Sister 1 Alive Sister 2 Alive Social History Tobacco Use Types Packs/Day Years Used Date Smoking Tobacco: Former Cigarettes 0.3 1.5 0 02/1973 - 1974 Smokeless Tobacco: Never Tobacco Cessation:Counseling Given: Not Answered Alcohol Use Standard Drinks/Week Comments Never 0 (1 standard drink = 0.6 oz pur e alcohol) AUDIT-C Answer Date Recorded Frequency of Alcohol Consumption Never 11/10/2019 Average Number of Drinks Not on file 020 Frequency of Binge Drinking Not on file 10/19 Comments No Sex and Gender Information Value Date Recorded Sex Assigned at Not on file Legal Sex Female 11:33 PM TRANSITION PROGRAM MANAGER Gender Identity Not on file Sexual Orientation Not on file Last Filed Vital Signs Vital Sign Reading Time Taken Comments Blood Pressure 109/43 10/24/2022 11:20 AM TRANSITION PROGRAM MANAGER Pulse 86 10/24/2022 11:20 AM TRANSITION PROGRAM MANAGER Temperature 36 C (96.8 F) 10/24/2022 11:16 AM TRANSITION PROGRAM MANAGER Respiratory Rate 18 10/24/2022 8:43 AM TRANSITION PROGRAM MANAGER Oxygen Saturation 96% 10/24/2022 8:43 AM TRANSITION PROGRAM MANAGER Inhaled Oxygen Concentration - - Weight 81.6 kg (180 lb) 05/01/2023 11:25 AM CDT Height 170.2 cm (5' 7 ) 05/01/2023 11:25 AM CDT Body Mass Index 28.19 05/01/2023 11:25 AM CDT Plan of Treatment Health Maintenance Due Date Last Done Comments Colorectal Cancer Screening Colonoscopy (10 Years) 1951 Hepatitis C 1969 DTaP, Tdap and Td Vaccines (1 - Tdap) 1970 Mammogram Screening 1991 Zoster Vaccines (1 of 2) 2001 Annual Medicare Wellness Visit 2016 Dexa Scan (General) 2016 COVID-19 Vaccine ( season) 2024 04/18/2022, 11/30/2021, 11/03/2020, Additional history exists RSV Immunization or 60+ Years (1 - 1-dose 75+ series) 2026 Pneumococcal Vaccine: 50+ Years Completed 07/06/2017, 08/25/2016 Meningococcal B Vaccine Aged Out No l onger eligible based on patient's age to complete this topic Meningococcal Vaccine Aged Out No asya domitila eligible based on patient's age to complete this topic RSV Immunizations Under 20 Months Aged Out No longer eligible based on patient's age to complete this topic Goals Goal Patient Goal Type Associated Problems Recent Progress Patient-Stated? Author Safety Patient/family will have appropriate support at home upon discharge Lifestyle No Gerald Claudtete J, RN Medical Devices Implanted Type Area Farm Or Ranch Animal Caretaker Device Identifier Shelf Expiration Date Model / Serial / Lot Cup Hip Acetabular Depuy 52mm - [id number] Implanted:Qty : 1 on 10/23/2022 by Ronak Nascimento MD at [facility] Hip Components Right: Hip DEPUY [id number] 12/18/2031 [id number] / / [id number] Stem Hip Depuy Tapered 150mm - [id number] Implanted:Qty : 1 on 10/23/2022 by Ronak Nascimento MD at [facility] Hip Components Right: Hip DEPUY [id number] 03/19/2032 [id number] / / [id number] Liner Depuy Acetabular Altrx Neut 36x52 - [id number] Implanted:Qty : 1 on 10/23/2022 by Ronak Nascimento MD at [facility] Hip Components Right: Hip DEPUY [id number] 06/19/2027 [id number] / / [id number] Head Depuy Femoral Articuleze 36mm +5 - [id number] Implanted:Qty : 1 on 10/23/2022 by Ronak Nascimento MD at [facility] Hip Components Right: Hip DEPUY [id number] 04/19/2027 [id number] / / [id number] [facility] Advance Directives * Full Code (Latest Code Status on File) Date Activated Date Inactivated Comments 10/23/2022 11:48 AM 10/24/2022 7:07 PM Care Teams Soda Drier Feeder Relationship Specialty Start Date End Date Mary Alice Hope MD [address] [place] [address] PCP - General INTERNAL MEDICINE 11/06/19
--- OUTSIDE RECORDS SUMMARY | 2024-12-02 00:24 | XMS_ITS | Clinical Summary ---
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 Name Role Phone Mary Alice Hope MD Primary Care Provider [phone] Allergies Active Allergy Reactions Criticality Noted Date Comments Atorvastatin Muscle pain Medium 06/01/2022 Hydrocodone-Acetaminophen Rash Medium 11/10/2019 Lisinopril Cough Low 10/23/2022 Sulfa (Sulfonamide Antibiotics) Swelling Medium 10/19 Medications cholecalciferol (VITAMIN D-3) 25 mcg (1,000 unit) tabletIndicatio ns:Vitamin D Deficiency Take 1 tablet (1,000 Units total) by mouth inker machine before breakfast Active cyanocobalamin/ folic ac/vit B6 (FOLIC ACID-VIT B6-VIT B12 ORAL)Indication s:Vitamin Deficiency Prevention Take 1 tablet by mouth inker machine before breakfast Active LEVEMIR 100 unit/mL (3 mL) pen for injectionIndica tions:type 2 diabetes mellitus Inject 40 Units under the skin nightly 1 Active lovastatin (MEVACOR) 40 mg tabletIndicatio ns:hyperlipidem ia Take 1 tablet (40 mg total) by mouth nightly 1 Active potassium chloride ER (KLOR-CON) 10 mEq CR tabletIndicatio ns:hypokalemia Take 1 tablet/capsule (10 mEq total) by mouth inker machine before breakfast Active FreeStyle Leonie 14 Day [place] misc as directed 1 Active acetaminophen (TYLENOL) 500 mg tablet Take 2 tablets (1,000 mg total) by mouth every 6 (six) hours as needed for pain Active LORazepam (ATIVAN) 1 mg tablet 1 Active cyanocobalamin (Vitamin B-12) 1,000 mcg tablet Take 1 tablet (1,000 mcg total) by mouth daily Active cetirizine (ZyrTEC) 10 mg capsule Take 10 mg by mouth daily Active gabapentin (NEURONTIN) 300 mg capsule Take 1 capsule (300 mg total) by mouth 3 (three) times a day 3 Active carvediloL (COREG) 25 mg tablet Take 1 tablet (25 mg total) by mouth 3 Active omeprazole (PriLOSEC) 20 mg capsule Take by mouth daily 3 Active furosemide (LASIX) 20 mg tablet Take 1 tablet (20 mg total) by mouth daily Active BASAGLAR 100 unit/mL (3 mL) pen for injection INJECT 40 UNITS UNDER THE SKIN WITH SUPPER Active ketoconazole (NIZORAL) 2 % cream Apply topically daily 3 Active losartan (COZAAR) 100 mg tablet Take 1 tablet (100 mg total) by mouth daily 3 Active BD Ultra-Fine Mini Pen Needle 31 gauge x 3/16 needle USE WITH INSULIN FIVE TIMES DAILY 3 Active predniSONE (DELTASONE) 20 mg tablet TAKE 2 TABLETS BY MOUTH DAILY FOR 3 DAYS 4 Active methocarbamoL (ROBAXIN) 500 mg tablet TAKE 1 TABLET AT BEDTIME NEEDED FOR MUSCLE SPASMS, TAKE 1/2 TABLET ON THE FIRST NIGHT 4 Active amLODIPine (NORVASC) 5 mg tablet Take 1 tablet (5 mg total) by mouth daily 4 Active traMADoL (ULTRAM) 50 mg tablet Take by mouth every 6 (six) hours as needed 4 Active cetirizine 10 mg capsule Take by mouth Activ e oxyCODONE-aceta minophen (PERCOCET) 5-325 mg per tabletIndicatio ns:Pain Take 1 tablet by mouth every 4 (four) hours as needed for pain Active fentaNYL 37.5 mcg/hour patch [address] on the skin Active Active Problems Problem Noted Date Diagnosed Date Status post total replacement of right hip 10/24 Primary osteoarthritis of right hip 09/27/2022 Overview (05/28/2023): Added automatically from request for surgery [id number] Benign neoplasm of cerebral meninges 01/27/2021 Rupture of right proximal biceps tendon 08/05/20 20 Immunizations Immunization Administration Dates Next Due Influenza, Quadrivalent, Spl it, Preservative Free, Intramuscular 05/04/2020,06/01/2019,05/01/2019,05/24,06/20/2017,08/25/2016 Pfizer SARS-CoV-2 Monovalent Vaccination (12+ Yrs) PURPLE 11/03/2020,10/13/2020 Pneumococcal Conjugate PCV 13 08/25/2016 Pneumococcal Polysaccharide PPV23 07/06/2017 Surgical History Surgery Date Site/Laterality Comments LUMBAR LAMINECTOMY CHOLECYSTECTOMY MASTECTOMY CRANIOTOMY 08/20/2020 - 08/19/2021 TONSILLECTOMY AND ADENOIDECTOMY Medical History Medical History Date Comments Hypertension Diabetes mellitus type I (HCC) Depression Breast cancer (HCC) CKD (chronic kidney disease) Atrial fibrillation (HCC) Meningioma (HCC) Anxiety IBS (irritable bowel syndrome) Gastric reflux Disc disorder of lumbar region Family History Medical History Relation Name Comments Diabetes Brother Hypertension Brother Anesthesia problems Father PONV Cancer Father Diabetes Father Hypertension Father Diabetes Maternal Grandmother Diabetes Mother Hypertension Mother Stroke Mother Diabetes Paternal Grandfather Diabetes Paternal Grandmother Anesthesia problems Sister PONV Cancer Sister Hypertension Sister Relation Name Status Comments Brother Father Maternal Grandmother Mother Paternal Grandfather Paternal Grandmother Sister Social History Tobacco Use Types Packs/Day Years Used Date Smoking Tobacco: Former Smokeless Tobacco: Never Tobacco Cessation:Counseling Given: No AUDIT-C Answer Date Recorded Q1: How often do you have a drink containing alcohol? Never 04/02/2024 Q2: How many drinks containi ng alcohol do you have on a typical day when you are drinking? Patient does not drink Q3: How often do you have si x or more drinks on one occasion? Never 04/02/2024 Comments No Sex and Gender Information Value Date Recorded Sex Assigned at Not on file Legal Sex Female 10:34 AM CDT Gender Identity Not on file Sexual Orientation Not on file Occupation Industry Job Start Date Job End Date Retired Not on file Not on file Not on file Obstetrics History Last Filed Vital Signs Vital Sign Reading Time Taken Comments Blood Pressure 124/73 04/02/2024 12:15 PM CDT Pulse 72 04/02/2024 12:15 PM CDT Temperature 36.9 C (98.4 F) 04/09/2023 2:40 PM CDT Respiratory Rate 17 04/09/2023 2:40 PM CDT Oxygen Saturation 99% 04/09/2023 2:40 PM CDT Inhaled Oxygen Concentration - - Weight 79.4 kg (175 lb) 06/18/2024 10:15 AM CDT Height 170.2 cm (5' 7 ) 06/18/2024 10:15 AM CDT Body Mass Index 27.41 06/18/2024 10:15 AM CDT Plan of Treatment Health Maintenance Due Date Last Done Comments Breast Cancer Screening-Mammogram 1951 Colon Cancer Screening-Colonoscopy 1950 Depression Screening 1950 Hepatitis C Screening 1950 Osteoporosis Screening-Bone Density Scan 1951 DTaP/Tdap/Td Vaccine (1 - Tdap) 1962 Hepatitis B Screening 1969 Zoster Vaccine (1 of 2) 2001 Well Visit 65+ 2016 Fall Risk Assessment 05/03/2022 05/03/2021 Covid-19 Vaccine (3 - 2023-2 5 season) 2024 11/03/2020, 10/13/2020 Influenza Vaccine (#1) 2024 0, 06/01/2019, 05/01/2019, Additional history exists Pneumococcal vaccine 65+ Completed 07/06/2017, 01/2017 Medical Devices Implanted Type Area Sterilizer Machine Operator Device Identifier Shelf Expiration Date Model / Serial / Lot [employer] [id number] Alloderm 10x5cm Allograft Regenerative Freeze Dried Thick Matrix - [id number] Implanted:Qty: 1 on 04/29/2021 by Frank Moore MD at [facility] Graft Right: Brain [employer] 04/19/2022 [id number] / / [id number] Dee Craniomaxillofacial [id number] [place] Neuro Iii 10mm Tab Craniomaxillofacial Low Profile - [id number] Implanted:Qty: 3 on 04/29/2021 by Frank Moore MD at [facility] Plate Right: Brain [place] Craniomaxillofacial [id number] / / Right Total Hip Replacement Implanted:Qty: 1 on 10/23/2022 Screw Right: Femur Description:TITANIUM RIGHT H IP REPLACEMENT DR MEJIA GODOY IN [facility] [place] Craniomaxillofacial [id number] Medpor 7mm Tab Low Profile Cover [place] Titanium Sterile - [id number] Implanted:Qty: 1 on 04/29/2021 by Frank Moore MD at [facility] N/A: Cranial Dee Craniomaxillofacial [id number] / / [place] Craniomaxillofacial [id number] Merr[place]an Neuro 3 1.5mm 4mm Self Drill Axial Stability Screw Bone Latex Free - [id number] Implanted:Qty: 23 on 04/29/2021 by Frank Moore MD at [facility] Right: Cranial [place] Craniomaxillofacial [id number] / / Insurance MEDICARE [facility] MEDICARE [facility] Advance Directives For more information, please contact: [phone] * Full Code (Latest Code Status on File) Date Activated Date Inactivated Comments 04/29/2021 2:54 PM 05/03/2021 5:36 PM Care Teams Plastic Sheets Finishing Supervisor Relationship Specialty Start Date End Date Mary Alice Hope MD [address] [place] [address] PCP - General Internal Medicine 12/27/20
--- OUTSIDE RECORDS SUMMARY | 2024-12-02 00:24 | XMS_ITS | Referral Summary ---
Author Organization [facility] Address [address] [place] [address] Care Team Providers Care Preschool Education Director Name Role Phone Mary Alice Hope MD Primary Care Provider [phone] Allergies Active Allergy Reactions Criticality Noted Date Comments Atorvastatin Muscle pain Medium 06/01/2022 Hydrocodone-Acetaminophen Rash Medium 11/10/2019 Lisinopril Cough Low 10/23/2022 Sulfa (Sulfonamide Antibiotics) Swelling Medium 10/19 Medications cholecalciferol (VITAMIN D-3) 25 mcg (1,000 unit) tabletIndicatio ns:Vitamin D Deficiency Take 1 tablet (1,000 Units total) by mouth crowning hammer operator before breakfast Active cyanocobalamin/ folic ac/vit B6 (FOLIC ACID-VIT B6-VIT B12 ORAL)Indication s:Vitamin Deficiency Prevention Take 1 tablet by mouth crowning hammer operator before breakfast Active LEVEMIR 100 unit/mL (3 mL) pen for injectionIndica tions:type 2 diabetes mellitus Inject 40 Units under the skin nightly 1 Active lovastatin (MEVACOR) 40 mg tabletIndicatio ns:hyperlipidem ia Take 1 tablet (40 mg total) by mouth nightly 1 Active potassium chloride ER (KLOR-CON) 10 mEq CR tabletIndicatio ns:hypokalemia Take 1 tablet/capsule (10 mEq total) by mouth crowning hammer operator before breakfast Active FreeStyle Leonie 14 Day [place] misc as directed 1 Active acetaminophen (TYLENOL) [...] (05/28/2023): Added automatically from request for surgery [id number] Benign neoplasm of cerebral meninges 01/27/2021 Rupture of right proximal biceps tendon 08/05/20 20 Immunizations Immunization Administration Dates Next Due Influenza, Quadrivalent, Spl it, Preservative Free, Intramuscular 05/04/2020,06/01/2019,05/01/2019,05/24,06/20/2017,08/25/2016 Pfizer SARS-CoV-2 Monovalent Vaccination (12+ Yrs) PURPLE 11/03/2020,10/13/2020 Pneumococcal Conjugate PCV 13 08/25/2016 Pneumococcal Polysaccharide PPV23 07/06/2017 Social History Tobacco Use Types Packs/Day Years [...] file Not on file Not on file Last Filed Vital Signs [...] 06/18/2024 10:15 AM CDT Plan of Treatment Not on file Medical Devices Implanted Type Area Post Partum Nurse Device Identifier Shelf Expiration Date Model / Serial / Lot [employer] [id number] Alloderm 10x5cm Allograft Regenerative Freeze Dried Thick Matrix - [id number] Implanted:Qty: 1 on 04/29/2021 by Frank Moore MD at [facility] Graft Right: Brain [employer] 04/19/2022 [id number] / / [id number] [place] Craniomaxillofacial [id number] [place] Neuro Iii 10mm Tab Craniomaxillofacial Low Profile - [id number] Implanted:Qty: 3 on 04/29/2021 by Frank Moore MD at [facility] Plate Right: Brain [place] Craniomaxillofacial [id number] / / Right Total Hip Replacement Implanted:Qty: 1 on 10/23/2022 Screw Right: Femur Description:TITANIUM RIGHT H IP REPLACEMENT DR MEJIA GODOY IN [facility] Dee Craniomaxillofacial [id number] Medpor 7mm Tab Low Profile Cover [place] Titanium Sterile - [id number] Implanted:Qty: 1 on 04/29/2021 by Frank Moore MD at [facility] N/A: Cranial [place] Craniomaxillofacial [id number] / / [place] Craniomaxillofacial [id number] [place] Neuro 3 1.5mm 4mm Self Drill Axial Stability Screw Bone Latex Free - [id number] Implanted:Qty: 23 on 04/29/2021 by Frank Moore MD at [facility] Right: Cranial Dee Craniomaxillofacial [id number] / / Insurance MEDICARE [employer] MEDICARE [employer] Advance Directives For more information, please contact: [phone] * Full Code (Latest Code Status on File) Date Activated Date Inactivated Comments 04/29/2021 2:54 PM 05/03/2021 5:36 PM Care Teams Preschool Education Director Relationship Specialty Start Date End Date Mary Alice Hope MD [address] [place] [address] PCP - General Internal Medicine 12/27/20
[2024-12-02 09:38] VITALS: BP 109/49; PULSE 75; RESP 18; TEMP 36.3; O2SAT 99
[2024-12-02] MEDS: LACTATED RINGERS 1,000 ML 150 ML IV CONT (09:49)
[2024-12-02 09:57] LABS: Glucose Point of Care 211 mg/dl (65-105)
--- NOTE | 2024-12-02 10:02 | WPDANESEPPF ---
Anes - Initial Pre Proc Eval Procedure: Operation Date: 12/02/24 10:30 Proposed Procedures p Screening Colonoscopy - Simon Howard DO Date/Time: 12/02/24 10:02 Surgeon: Simon Howard DO Pre Op Diagnosis: Prior history of polyps Patient Data Age: 74 Gender: F Height: 1.7 m Weight: 79 kg Last Vital Signs Temp 36.3 C L 12/02/24 09:38 Pulse 75 12/02/24 09:38 Resp 18 12/02/24 09:38 BP 109/49 L 12/02/24 09:38 Pulse Ox 99 12/02/24 09:38 O2 Del Method Room Air 12/02/24 09:38 Allergies Allergy/AdvReac Type Severity Reaction Status Date / Time Sulfa (Sulfonamide Allergy Hives Verified 12/02/24 09:34 Antibiotics) hydrocodone (From Vicodin) AdvReac Nausea Verified 12/02/24 09:34 semaglutide AdvReac Abdominal Verified 12/02/24 09:34 Pain Home Medications ?Medication ?Instructions ?Recorded ?Confirmed ?Type cetirizine 10 mg tablet 10 mg PO HS 08/24/22 12/02/24 History cholecalciferol (vitamin D3) 25 25 mcg PO DAILY 08/24/22 12/02/24 History mcg (1,000 unit) capsule citalopram 20 mg tablet 20 mg PO DAILY 08/24/22 12/02/24 History lorazepam 1 mg tablet 1 mg PO HS 08/24/22 12/02/24 History lovastatin 40 mg tablet 40 mg PO QPM 08/24/22 12/02/24 History mecobalamin (vitamin B12) 1,000 1,000 mcg PO DAILY 08/24/22 12/02/24 History mcg chewable tablet (B12 Active) omeprazole 20 mg capsule,delayed 20 mg PO DAILY 08/24/22 12/02/24 History release amlodipine 5 mg tablet 5 mg PO DAILY #60 tabs 03/19/24 12/02/24 Rx carvedilol 25 mg tablet (Coreg) 25 mg PO Q12HR #60 tabs 03/19/24 12/02/24 Rx fentanyl 25 mcg/hr transdermal 25 mcg transdermal USEASDIRECTD 05/23/24 12/02/24 History patch insulin aspart (niacinamide) 5 unit subcut TID 10/04/24 04/15/25 History (U-100) 100 unit/mL subcutaneous solution (Fiasp U-100 Insulin) losartan 100 mg tablet 100 mg PO DAILY 05/23/24 12/02/24 History oxycodone-acetaminophen 5 mg-325 1 tablet PO Q4H PRN Pain (Scale 05/23/24 09/22/24 History mg tablet Score 4-6) tizanidine 4 mg tablet 4 mg PO Q6H PRN Back Pain 05/23/24 12/02/24 History insulin glargine 100 unit/mL 20 unit (0.2 mL) subcut HS #10 mL 05/28/24 12/02/24 Rx subcutaneous solution (Lantus U-100 Insulin) Laboratory Tests 12/02/24 09:48 POC Capillary Glucose 211 H mg/dl (65-105) Patient hx anesthesia problems: none Family hx anesthesia problems: none Results Review: All pre-operative results and documents have been reviewed as part of the pre-operative evaluation. [facility]LY [facility] Past Medical History Medical History Anxiety and depression GERD (gastroesophageal reflux disease) Breast cancer, right HLD (hyperlipidemia) Hypertension Type 2 diabetes mellitus with hyperglycemia Lumbar spondylosis Surgical History Surgical History History of appendectomy (05/23/24) History of bilateral cataract extraction History of cholecystectomy History of back surgery At 23 years old History of total right hip replacement History of lumbar laminectomy (~1973) History of lumpectomy of right breast (10/16/01) History of brain surgery (04/29/21) Social History Social History Smoking status: Never smoker Second hand tobacco smoke exposure: No Alcohol intake: never Substance use: never Substance use type: does not use Do You Feel Safe in your Home?: Yes Lack of Transportation: No Lack of Food: Never True Current Housing: I Have Housing Concerned About Future Housing: No Difficulty Paying Gas/Electric Bills: No Difficulty Paying for Meds: No Currently Unemployed: No Education: High School Diploma/GED Difficulty w/ Childcare or Family Care: No Living arrangements: with family Spiritual care concerns: No Anes - Eval Final PreProcedure Day of Procedure 12/02/24 10:02 Patient weight: overweight Heart: regular rate and rhythm Lungs: clear to auscultation Airway: Mallampati scale class II Neurological: alert and oriented Last oral intake: >/= 8 hours ASA classification: III Emergent: no Anesthetic plan: proceed Anesthesia type and monitoring: general GIVS and standard monitoring Results Review: All pre-operative results and documents have been reviewed as part of the pre-operative evaluation. Informed Consent: The patient's anesthetic plan and its attendant risks and benefits were discussed with the patient/family/POA. Questions were solicited and answers provided to the satisfaction of the patient/family/POA.
--- NOTE | 2024-12-02 10:09 | PM.IMHP ---
H&P: HPI History of Present Illness Date/Time: 12/02/24 10:09 Chief Complaint: history of colon polyps, family history of colon cancer Narrative: this is a 74-year-old woman who presents for colonoscopy. Her last colonoscopy was 7 years ago and 3 polyps were removed. She denies any hematochezia melena. Her sister did recently get diagnosed with colon cancer in the past year. She also had an appendectomy just 6 months ago. Review of Systems Review of Systems: All systems reviewed & are unremarkable except as noted in HPI and below Constitutional: Constitutional: Denies chills, Denies fever(s), Denies headache(s) and Denies weight loss Eyes: Eyes: Denies change in vision ENT: Denies dizziness, Denies headache(s), Denies neck mass and Denies throat swelling Cardiovascular: Cardiovascular: Denies chest pain, Denies lightheadedness and Denies dyspnea Respiratory: Respiratory: Denies cough, Denies dyspnea and Denies wheezing Gastrointestinal: Gastrointestinal: Denies abdominal pain, Denies change in bowel habits, Denies nausea and Denies vomiting Genitourinary: Genitourinary: Denies hematuria and Denies dysuria Musculoskeletal: Musculoskeletal: Reports as per HPI Integumentary/Breasts: Skin/Breast: Reports as per HPI Neurologic: Denies dizziness and Denies headache(s) Allergic/Immunologic: Allergic/Immunologic: Denies throat swelling and Denies wheezing PMFSH Past Medical History Medical History Anxiety and depression GERD (gastroesophageal reflux disease) Breast cancer, right HLD (hyperlipidemia) Hypertension Type 2 diabetes mellitus with hyperglycemia Lumbar spondylosis Surgical History Surgical History History of appendectomy (05/23/24) History of bilateral cataract extraction History of cholecystectomy History of back surgery At 23 years old History of total right hip replacement History of lumbar laminectomy (~1973) History of lumpectomy of right breast (10/16/01) History of brain surgery (04/29/21) Social History Social History Smoking status: Never smoker Second hand tobacco smoke exposure: No Alcohol intake: never Substance use: never Substance use type: does not use Do You Feel Safe in your Home?: Yes Lack of Transportation: No Lack of Food: Never True Current Housing: I Have Housing Concerned About Future Housing: No Difficulty Paying Gas/Electric Bills: No Difficulty Paying for Meds: No Currently Unemployed: No Education: High School Diploma/GED Difficulty w/ Childcare or Family Care: No Living arrangements: with family Spiritual care concerns: No Meds Home Medications and Allergies Home Medications ?Medication ?Instructions ?Recorded ?Confirmed ?Type cetirizine 10 mg tablet 10 mg PO HS 08/24/22 12/02/24 History cholecalciferol (vitamin D3) 25 25 mcg PO DAILY 08/24/22 12/02/24 History mcg (1,000 unit) capsule citalopram 20 mg tablet 20 mg PO DAILY 08/24/22 12/02/24 History lorazepam 1 mg tablet 1 mg PO HS 08/24/22 12/02/24 History lovastatin 40 mg tablet 40 mg PO QPM 08/24/22 12/02/24 History mecobalamin (vitamin B12) 1,000 1,000 mcg PO DAILY 08/24/22 12/02/24 History mcg chewable tablet (B12 Active) omeprazole 20 mg capsule,delayed 20 mg PO DAILY 08/24/22 12/02/24 History release amlodipine 5 mg tablet 5 mg PO DAILY #60 tabs 03/19/24 12/02/24 Rx carvedilol 25 mg tablet (Coreg) 25 mg PO Q12HR #60 tabs 03/19/24 12/02/24 Rx fentanyl 25 mcg/hr transdermal 25 mcg transdermal USEASDIRECTD 05/23/24 12/02/24 History patch insulin aspart (niacinamide) 5 unit subcut TID 05/23/24 12/02/24 History (U-100) 100 unit/mL subcutaneous solution (Fiasp U-100 Insulin) losartan 100 mg tablet 100 mg PO DAILY 05/23/24 12/02/24 History oxycodone-acetaminophen 5 mg-325 1 tablet PO Q4H PRN Pain (Scale 05/23/24 09/22/24 History mg tablet Score 4-6) tizanidine 4 mg tablet 4 mg PO Q6H PRN Back Pain 05/23/24 12/02/24 History insulin glargine 100 unit/mL 20 unit (0.2 mL) subcut HS #10 mL 05/28/24 12/02/24 Rx subcutaneous solution (Lantus U-100 Insulin) Allergies Allergy/AdvReac Type Severity Reaction Status Date / Time Sulfa (Sulfonamide Allergy Hives Verified 12/02/24 09:34 Antibiotics) hydrocodone (From Vicodin) AdvReac Nausea Verified 12/02/24 09:34 semaglutide AdvReac Abdominal Verified 12/02/24 09:34 Pain Vital Signs Vital Signs - 24 hr 12/02/24 09:38 Temperature 97.3 F L Pulse Rate 75 Respiratory Rate 18 Blood Pressure 109/49 L Pulse Oximetry 99 Oxygen Delivery Room Air Exam Const: General: no acute distress and alert Orientation/consciousness: patient oriented x3 HENMT: Head: normocephalic and atraumatic Ears: hearing grossly normal bilaterally Face/Nose/Sinus: Normal nares present Mouth: Yes Normal oral and palatal mucosa present Eyes: Periorbital: periorbital findings normal Sclera: sclerae normal EOM: EOMs intact bilaterally Neck: Neck: normal visual inspection, no lymphadenopathy and trachea midline Chest: Chest palpation & inspection: normal inspection of the chest Resp: Effort & Inspection: normal respiratory effort Auscultation: clear to auscultation bilaterally Cardio: Jugular venous distension: no JVD Rate: regular rate Rhythm: regular rhythm Heart sounds: S1 normal heart sound present and S2 normal heart sound present Peripheral pulses: Peripheral pulses 2+ throughout GI: Inspection: normal to inspection GI Palp: Yes Soft to palpation, No Tenderness to palpation present (GI), No Guarding due to palpation present (GI) and No Rebound tenderness present Percussion: Yes normal to percussion Auscultation: normal bowel sounds : General: Yes no CVA tenderness Back/Spine/Pelvis: Back: no CVA tenderness Neuro: General: patient oriented x3, no focal motor deficits and CN's II-XI intact bilaterally Cognition (Neuro): normal cognition Speech: normal speech Motor exam (neuro): 5/5 motor strength present throughout Extrem: General: capillary refill normal and no clubbing, cyanosis or edema Assessment and Plan Assessment and plan (1) Hx of colonic polyp: Code(s): Z86.0100 - Personal history of colon polyps, unspecified Status: Acute Assessment and Plan: I have recommended colonoscopy. I have discussed the procedure, risks, benefits, and alternatives. Questions were answered. Patient is agreeable to proceed. (2) Family hx of colon cancer: Code(s): Z80.0 - Family history of malignant neoplasm of digestive organs Status: Acute
[2024-12-02 10:30] VITALS: BP 96/50; PULSE 62; RESP 20; O2SAT 98
[2024-12-02 10:40] VITALS: BP 94/68; PULSE 69; RESP 20; O2SAT 98
--- NOTE | 2024-12-02 10:49 | SUR.PHASEII ---
patients blood sugar was 204 via glucose monitor patch. notified charge nurse of patients blood sugar. pt is okay to be discharged home and educated on following medication regimen when discharged. pt states to have no symptoms.
[2024-12-02 10:50] VITALS: BP 123/58; PULSE 60; RESP 20; O2SAT 98
== END 2024-12-02 11:13 | disposition home or self-care (01) ==
PROVIDERS: PCP Internal Medicine; Visit Provider Surgery
PROC: 0DJD8ZZ Inspection of Lower Intestinal Tract, Via Natural or Artificial Opening Endoscopic (ICD-10-PCS; CPT 45378; principal; 2024-12-02 10:30)
DX: Z12.11 Encounter for screening for malignant neoplasm of colon (principal); D12.5 Benign neoplasm of sigmoid colon; Z80.0 Family history of malignant neoplasm of digestive organs; E11.9 Type 2 diabetes mellitus without complications; I10 Essential (primary) hypertension; E78.5 Hyperlipidemia, unspecified; K21.9 Gastro-esophageal reflux disease without esophagitis; F41.8 Other specified anxiety disorders; Z79.4 Long term (current) use of insulin
CPT/HCPCS: 45380; 82948; 88305; J2704; J7120